=== PATIENT | female | born 1955 | race Caucasian/White ===

== ENCOUNTER → 2018-11-27 15:36 | Outpatient (CLI) | payer MEDICARE, SELFPAY | PROVIDERS: Family Provider Family Medicine; PCP Family Medicine; Referring Provider Internal Medicine Pulmonary Disease; Visit Provider Internal Medicine Pulmonary Disease | DX: J44.9 Chronic obstructive pulmonary disease, unspecified (principal); J40 Bronchitis, not specified as acute or chronic | CPT/HCPCS: 87070; 87077; 87101; 87205 ==

== ENCOUNTER → 2018-11-30 13:54 | Outpatient (CLI) | payer MEDICARE, SELFPAY | PROVIDERS: Family Provider Family Medicine; PCP Family Medicine; Referring Provider Internal Medicine Pulmonary Disease; Visit Provider Internal Medicine Pulmonary Disease | DX: J44.9 Chronic obstructive pulmonary disease, unspecified (principal); J40 Bronchitis, not specified as acute or chronic | CPT/HCPCS: 87015; 87116; 87206 ==

== ENCOUNTER → 2019-03-10 13:26 | Outpatient (CLI) | payer MEDICARE, SELFPAY ==
[2019-03-10 14:36] LABS: Erythrocyte Sedimentation Rate 15 mm/hr (0-30)
== END ==
PROVIDERS: Family Provider Family Medicine; PCP Family Medicine; Referring Provider Internal Medicine Pulmonary Disease; Visit Provider Internal Medicine Pulmonary Disease
DX: J44.9 Chronic obstructive pulmonary disease, unspecified (principal); R05 Cough; R91.1 Solitary pulmonary nodule
CPT/HCPCS: 36415; 82164; 85652; 87385

== ENCOUNTER → 2022-11-19 | Outpatient (CLI) | payer MEDICARE, SELFPAY ==
[2022-11-19 11:04] LABS: Cholesterol 203 mg/dL (200); High Density Lipoprotein 81 mg/dL; Triglycerides 71 mg/dL; Very Low Density Lipoprotein 14 mg/dL (5-40)
== END | disposition home or self-care (01) ==
LOC: PAVLAB 10:07
PROVIDERS: PCP Internal Medicine; Referring Provider Internal Medicine; Visit Provider Internal Medicine
DX: E78.00 Pure hypercholesterolemia, unspecified (principal)
CPT/HCPCS: 36415; 80061

== ENCOUNTER → 2023-04-07 | Outpatient (CLI) | payer MEDICARE, MEDICAID, SELFPAY ==
[2023-04-07 16:32] LABS: Amphetamine Urine VISTA NEGATIVE (<1000 ng/mL); Barbiturate Urine VISTA NEGATIVE (< 200 ng/mL); Benzodiazepine Urine VISTA NEGATIVE (< 200 ng/mL); Cocaine Urine VISTA NEGATIVE (< 300 ng/mL); Ecstacy Urine VISTA NEGATIVE (< 500 ng/mL); Methadone Urine VISTA NEGATIVE (< 300 ng/mL); PCP Urine VISTA NEGATIVE (< 25 ng/mL); THC Urine VISTA NEGATIVE (< 50 ng/mL); Vista UDS pH Range 6
== END | disposition home or self-care (01) ==
PROVIDERS: PCP Internal Medicine; Referring Provider Anesthesiology Pain Medicine; Visit Provider Anesthesiology Pain Medicine
DX: F11.20 Opioid dependence, uncomplicated (principal)
CPT/HCPCS: 80307

== ENCOUNTER 2023-07-14 14:34 | Outpatient (RCR) | payer MEDICARE, MEDICAID, SELFPAY ==
--- NOTE | 2023-07-14 15:58 | HP.PTEVAL ---
Patient's Visit Information Visit Information Visit Information: NADIA DOTY is a 68 year old F referred to Physical Therapy by Dr. Giorgi Frias MD with a diagnosis of HEART FAILURE WITH EJECTION FRACTURE,COPD. Date of Evaluation: 07/14/23 Physical Therapist: Derrell Villatoro PT, Cert MDT, OCS Visit Plan Frequency: 1 visit Plan: This patient will benefit from lift chair due to weakness in legs especially hips along with comorbities influence condition ,thus lift chair will ensure maximal level of function Subjective Subjective: This 68 y/o female presents to physical therapy for evaluation for lift chair. Patient seen DR and recommended lift chair due to difficulty getting up from chair especially the couch. Patient has multiple comorbities to include heart failure ,COPD,DM-2 ,Covid ,weakness ,lower extremity chronic edema , PUNEET ,TKR ,obesity . Patient has extended walking and standing caused LPB. Patient has difficulty ADL'S able to dress self ,bath . Patient has MAXILLOFACIAL PATHOLOGY assist with cleaning and patient does light cleaning. Patient has difficulty with stairs one step at time with rail. Lives in 1 bedroom apartment no steps. Patient has tub/shower stet up with grab bars. Patient denies paresthesia/tingling. Patient sleeping okay. Patient condition affects function. Patient goals to get lift chair. SOCIAL: Pain Back: Pain Intensity (Out of 10): 2 Pain Intensity Range: 10 Objective Objective: POSTURE: mild forward posture ,genu recurvatum ,knee valgus NEURO: denies paresthesia/tingling ,reflexes L3-4,L4-5,L5-S1 1/3 GAIT: ambulates with reciprocal pattern lateral sway of trunk SYMMTRIES: align AROM: supine knee flexion 0-120 degrees MMT: quads/hamstrings 4-/5 ,hip flexion /abduction 3/5 STAIRS: one steps at time with rail Balance/Special Test Scores Functional Gait Assessment Score: 11 % Disability: 63.3400 CATSIB Score (Max score 120 seconds): 60 Goals Goal 1:: Patient will benefit from lift chair to maximize function. Goal Time Frame: 1 visit Rehabilitation Potential Physical Therapy Diagnosis: This patient will benefit from lift chair due to weakness in legs especially hips along with comorbities influence condition ,thus lift chair will ensure maximal level of function Rehabilitation Potential: Fair Anticipated Interventions Patient/Client Instruction: Educate patient on: Condition For the Purpose of:: Other Other: lift chair Text: Thank you for the opportunity to evaluate your patient. For Medicare and Medicare HMO plans, please review the plan of care and approve it. It will need to be FAXED BACK to us at [phone] for Medicare purposes. For Medicare only, by signing this I certify the plan of care. Please let me know if there are questions or concerns regarding this plan of care. Physician Signature: Date:
== END 2023-07-14 19:00 | disposition home or self-care (01) ==
LOC: PT 14:34
PROVIDERS: PCP Internal Medicine; Visit Provider Internal Medicine
DX: I50.30 Unspecified diastolic (congestive) heart failure (principal); J44.9 Chronic obstructive pulmonary disease, unspecified; E11.65 Type 2 diabetes mellitus with hyperglycemia
CPT/HCPCS: 97162

== ENCOUNTER → 2023-09-02 | Outpatient (CLI) | payer MEDICARE, MEDICAID, SELFPAY ==
--- NOTE | 2023-09-02 14:12 | CT_ITS ---
STUDY: CT ABDOMEN AND PELVIS WITH CONTRAST REASON FOR EXAM: Female, 68 years old. Umbilical drainage. RADIATION DOSAGE (If Supplied By Facility): CTDIvol = ( 16.12 ) mGy, DLP = ( 863.38 ) mGycm TECHNIQUE: Transaxial images were obtained from the dome of the diaphragm to the symphysis pubis with oral contrast. Oral and amp; IV Readi-CAT and amp; 75mL Isovue-370 was administered. Sagittal and coronal images were reconstructed. Individualized dose optimization techniques were used for this CT. COMPARISON: None. FINDINGS: There is a 1.4 cm x 1.3 cm hypodense nodule in the posterior aspect of the right lower lobe. The visualized portions of the heart are within normal limits. Normal liver. The patient is status post cholecystectomy. Normal spleen. Normal pancreas. Normal bilateral adrenal glands. Normal right kidney. Normal left kidney. Normal visualized stomach. Normal small intestine. Moderate amount of fecal material is seen throughout the colon. The appendix is visualized and appears normal. There is scattered atherosclerotic calcification of the abdominal aorta, without a demonstrated aneurysm. Normal inferior vena cava. Normal retroperitoneum. Normal urinary bladder. There is absence of the uterus consistent with a prior hysterectomy. There is a small umbilical hernia containing fat. There are diffuse degenerative changes of the visualized lumbar spine. CT/Abdomen/Pelvis WITH Contrast IMPRESSION: Status post cholecystectomy and hysterectomy. Moderate amount of fecal material is seen in the colon. Small umbilical hernia. Electronically Signed: Omar Schwartz MD at 15:23 EST ,
[2023-09-02 14:53] LABS: CREATININE FINGERSTICK < 1.0 mg/dL (0.55-1.02); EGFR FINGERSTICK > 60.0000 mL/min (>60)
== END | disposition home or self-care (01) ==
LOC: CT 14:12
PROVIDERS: PCP Internal Medicine; Referring Provider Surgery; Visit Provider Surgery
DX: K42.9 Umbilical hernia without obstruction or gangrene (principal)
CPT/HCPCS: 74177; Q9967

== ENCOUNTER → 2023-12-08 | Outpatient (CLI) | payer MEDICARE, MEDICAID, SELFPAY ==
--- NOTE | 2023-12-08 08:07 | MRI_ITS ---
STUDY: MRI LUMBAR SPINE WITHOUT CONTRAST REASON FOR EXAM: Female, 68 years old. Pain and left radiculopathy. TECHNIQUE: Standardized fat and water weighted pulse sequences were obtained in the sagittal and axial planes. COMPARISON: CT abdomen and pelvis with contrast 09/02/2023. Lumbar spine radiographs 11/17/2023. FINDINGS: T10-T11: (Sagittal only). Normal endplates. Normal disc height, hydration and morphology. No ventral extradural defect. Normal central canal and bilateral intervertebral neural foramina. T11-T12: (Sagittal only). Prominent anterior marginal spurs. Normal endplates. Mild to moderate disc space height narrowing. Tiny ventral extra dural defect is posterior bulging annulus. Normal central canal and bilateral intervertebral neural foramina. T12-L1: (Sagittal only). Normal endplates. Normal disc height, hydration and morphology. No ventral extradural defect. Normal central canal and bilateral intervertebral neural foramina. Normal lumbar lordosis. There is no substantial scoliosis. Normal conus medullaris that terminates at the mid L1 vertebral body level. L1-2: Normal endplates. Normal disc height, hydration and morphology. Normal bilateral facet joints. Normal central canal and bilateral lateral recesses. Normal bilateral intervertebral neural foramina. L2-3: Normal endplates. Mild disc space height narrowing. Prominent broad ventral extradural defect due to posterior bulging annulus extending into the left L3 supra pedicular level foraminal zone. No significant facet arthropathy. Normal central canal and bilateral lateral recesses. Normal bilateral intervertebral neural foramina. L3-4: Modic type II degenerative vertebral marrow fat infiltration underneath the vertebral endplates. Pronounced disc space height narrowing. Prominent ventral extradural defect due to bone spur. Mild bilateral degenerative facet arthropathy. Mild central canal stenosis with an AP canal diameter of 9 mm. Normal bilateral lateral recesses. Mild stenosis of the right intervertebral neural foramen due to greater right-sided disc space height narrowing and right posterior marginal spur. Normal left intervertebral neural foramen. L4-5: Modic type II degenerative vertebral marrow fat infiltration underneath the vertebral endplates. Pronounced disc space height narrowing. Mild ventral epidural defect due to posterior marginal spurs mild degenerative retrolisthesis of L4 on L5. Mild to moderate left degenerative facet arthropathy. Mild right degenerative facet arthropathy. Moderately pronounced central canal stenosis with an AP canal diameter of 6.3 mm. Normal bilateral lateral recesses. Moderate stenosis of the left intervertebral neural foramen due to posterior marginal spur coming from L5. The bone spur is better seen on the CT abdomen. Mild to moderate stenosis of the right intervertebral neural foramen due to right-sided posterior marginal spurs and disc space height narrowing. L5-S1: Normal endplates. Normal disc height. Moderately pronounced left degenerative facet arthropathy. Mild right degenerative facet arthropathy. Normal central canal and bilateral lateral recesses. Moderately pronounced stenosis of the left intervertebral neural foramen due to osteophytes coming from the left facet joint. Mild stenosis of the right intervertebral neural foramen. Normal visualized sacral ala. Normal visualized paraspinous soft tissue structures. MRI/Spine Lumbar (Routine) IMPRESSION: 1. Moderately pronounced stenosis of the left L5-S1 intervertebral neural foramen due to osteophytes coming from moderately pronounced left degenerative facet arthropathy. Advise correlation for symptoms of left L5 nerve radiculopathy. 2. Moderately pronounced central canal stenosis at L4-L5 disc space level with an AP canal diameter 6.3 mm and moderate stenosis of the left L4-L5 intervertebral neural foramen due to osteophyte common from the L5 posterior bone spur. This bone spur is better seen on the comparison CT of the abdomen. Additionally, mild degenerative retrolisthesis of L4 on L5. 3. Mild central canal stenosis at L3-L4 disc space level with an AP canal diameter of 9 mm and mild stenosis of the right intervertebral neural foramen due to greater right-sided disc space height narrowing and right posterior marginal spur. 4. Prominent left-sided L2-L3 posterior bulging annulus extending into the left L3 supra pedicular level foraminal zone but no stenosis of the left intervertebral neural foramen. 5. No MRI evidence of lumbar extruded disc fragment. Electronically Signed: Mahamed Glaser MD at 10:01 EDT ,
== END | disposition home or self-care (01) ==
PROVIDERS: PCP Internal Medicine; Referring Provider Orthopaedic Surgery; Visit Provider Orthopaedic Surgery
DX: M48.061 Spinal stenosis, lumbar region without neurogenic claudication (principal)
CPT/HCPCS: 72148

== ENCOUNTER 2024-10-21 10:01 | Outpatient (RCR) | payer MEDICARE, MEDICAID, SELFPAY ==
[2024-10-21 10:40] VITALS: BP 142/64; PULSE 67; RESP 18; TEMP 36.2; BMI 35.9
--- NOTE | 2024-10-21 12:52 | HP.PCM_ITS ---
History of Present Illness Date of Service: 10/21/24 Chief Complaint: Drainage from umbilicus History of Wound: This Martin is a 69-year-old who was referred to the wound center by PCP due to chronic drainage from her umbilicus. She states that this has been ongoing for over 2 years. No pain. No recent abdominal surgery, history of cholecystectomy and hysterectomy years ago. Was seen by general surgery a few years ago however imaging did not show any significant concerns. She states that she has been packing the area daily. There has been no recent worsening, she was referred here due to ongoing drainage. She feels well otherwise. History of diabetes mellitus type 2 her last A1c was at 6.9. [facility] Medical History (Updated 10/21/24 @ 13:[address] Tiana Gonzales MD) Umbilical discharge Sleep apnea COPD (chronic obstructive pulmonary disease) GERD (gastroesophageal reflux disease) Hypertension Arthritis Diabetes Umbilical abnormality Home Medications ?Medication ?Instructions ?Recorded ?Last Taken ?Type calcium 600 mg (as carbonate)-vit 1 tab PO DAILY 08/22 Unknown History D3 1,000 unit-vitamin K2 90 mcg tab carvedilol 6.25 mg tablet 3.125 mg PO BID 08/22/23 Unk nown History cholecalciferol (vitamin D3) 125 125 mcg PO DAILY 10/14 Unknown History mcg (5,000 unit) capsule cyanocobalamin (vitamin B-12) 1,000 mcg PO DAILY 08/22 Unknown History 1,000 mcg capsule fluticasone 500 mcg-salmeterol 50 1 inh inhalation BID 08/22/23 Unknown History mcg/dose blistr powdr for inhalation (Wixela Inhub) furosemide 20 mg tablet 20 mg PO DAILY 08/22/23 Unkn own History glipizide 10 mg tablet 20 mg PO DAILY 08/22/23 Unkn own History ibandronate 150 mg tablet 150 mg PO QMONTH 08/22/23 Un known History ipratropium 0.5 mg-albuterol 3 mg 3 ml inhalation Q6H PRN sob 08/22/23 Unknown History (2.5 mg base)/3 mL nebulization soln losartan 50 mg tablet 50 mg PO DAILY 08/22/23 Unkn own History magnesium oxide 400 mg PO TID 08/22/23 Unkno wn History multivitamin (One Daily 1 tab PO DAILY 08/22/23 Unkn own History Multivitamin tablet) omeprazole 40 mg capsule,delayed 40 mg PO DAILY Unknown History release pioglitazone 15 mg tablet 15 mg PO DAILY 08/22/23 Unkn own History pramipexole 0.125 mg tablet 0.125 mg PO DAILY 08/22/23 Unknown History rosuvastatin 40 mg tablet 40 mg PO DAILY 08/22/23 Unkn own History Allergy/AdvReac Type Severity Reaction Status Date / Time No Known Allergies Allergy Verified 10/21/24 10:34 Family History Mother Colon cancer Hypertension Father Hypertension Surgical History History of total left knee replacement History of laparoscopic cholecystectomy History of hysterectomy Social History Smoking Status: Never smoker alcohol intake: current alcohol intake frequency: a few times a month substance use type: does not use ROS Constitutional Constitutional: Denies anorexia, body ache(s), change in weight, chills, daytime sleepiness, fatigue, frequent falls, headache(s), poor appetite or snoring Eyes Eyes: Denies blind spots, bloody eye, change in vision, discharge from eye(s), discongugate gaze, double vision, erythema or itchy eyes ENT HEENT: Denies ear pain, epistaxis, facial pain, foreign body in nose, halitosis, headache(s), hearing loss or mouth pain Cardiovascular Cardiovascular: Denies abdominal pain, bluish discoloration of hand/feet, chest pain, chest pain at rest, claudication, cold extremities, cyanosis or erythema on extremities Respiratory/Chest Respiratory/Chest: Denies chest congestion, difficulty clearing secretions, dusky skin, dyspnea, excessive phlegm production or hemoptysis Gastrointestinal Gastrointestinal: Denies abdominal pain, change in bowel habits, chewing difficulty, coffee ground emesis, constipation or fecal incontinence Genitourinary Genitourinary: Denies abdominal discomfort, anuria or flank pain Musculoskeletal Musculoskeletal: Reports joint stiffness; Denies atrophy, difficulty walking, muscle weakness, tingling or tremors Integumentary Integumentary: Denies bleeding lesions, changing lesions, erythema, hirsutism, jaundice or skin swelling Neurologic Neurologic: Denies abnormal movements, behavior changes, burning sensations, confusion, disequilibrium, focal weakness, frequent falls or memory loss Psychiatric Psychiatric: Denies auditory hallucinations, behavioral changes, confusion, difficulty concentrating, hallucinations, homicidal ideation or memory loss Endocrine Endocrinology: Denies change in body appearance, cold intolerance, deepening of the voice, excessive sweating or increase in ring/shoe/hat size Hematologic/Lymphatic Hematologic/Lymphatic: Denies easy bleeding or easy bruising Allergic/Immunologic Allergic/Immunologic: Denies itchy eyes, lip swelling, rhinitis, throat swelling, tongue swelling, eczemia or wheezing Vital Signs Vital Signs Vital Signs: 10/21/24 10:40 Temperature 97.2 F L Temperature Source Temporal Pulse Rate 67 Respiratory Rate 18 Blood Pressure 142/64 H Blood Pressure Mean 90 Blood Pressure Source Monitor Blood Pressure Position Sitting Blood Pressure Location Right Arm Oxygen Delivery Method Room Air Weight Weight: 160 lb Body Mass Index (BMI) 35.9 Physical Exam Const alert, oriented x3 and no apparent distress General Appearance: cooperative and well kempt HEENT normocephalic, head/scalp atraumatic and hearing grossly normal bilaterally Eyes EOMs intact bilaterally General Eye: normal appearance of both eyes Neck full ROM and supple General: normal visual inspection Resp normal respiratory effort and normal air movement Effort and Inspection: able to speak in complete sentences Cardio regular rate, regular rhythm, S1 normal heart sound and S2 normal heart sound GI soft to palpation and non-tender GI Narrative: Umbilicus defect visibly notable however, probes to about 3 cm Extremity no clubbing, cyanosis or edema Neuro oriented x3, CN's II-XII intact bilaterally and moves all extremities Psych mental status grossly normal, thought process normal, cooperative and affect normal Charges/Coding Visit Charges Office Visits / Consults: [id number] OV L3 New 30min Assessment/Plan Assessment/Plan (1) Umbilical abnormality: CODE(S): Q89.9 - Congenital malformation, unspecified (2) Umbilical discharge: CODE(S): R19.8 - Other specified symptoms and signs involving the digestive system and abdomen PLAN: Plan Chronic intermittent drainage from her umbilicus which has been present for 2 years. Was seen by general surgery in August 2023, had an abdominal pelvic CT which did not reveal any acute/significant concerns. At her follow-up visit, she had stated that discharge/drainage had resolved and so no further follow-up was recommended. She states that it has continued intermittently with similar type of drainage since then. Not worse but due to persistence, PCP recommended wound care. As above, there is no clear/open wound but on probing, probes to about 3 cm into the abdominal cavity. I believe would benefit from a new general surgery evaluation, referral placed. In the meantime Aquacel extra and gauze to help with drainage. Keep area clean. Recommend continued follow-up with PCP until evaluation by general surgery. This note was generated with [employer] dictation software. It may contain incorrect words, spelling, and punctuation that were not noted in checking the note before signing.
--- NOTE | 2024-10-25 11:26 | WC ---
PHOTO 10/21/24 UMBILICAL
== END 2024-10-21 11:58 | disposition home or self-care (01) ==
LOC: WC 10:01
PROVIDERS: PCP Internal Medicine; Referring Provider Internal Medicine; Visit Provider Internal Medicine
DX: Q89.9 Congenital malformation, unspecified (principal); J44.9 Chronic obstructive pulmonary disease, unspecified; E11.9 Type 2 diabetes mellitus without complications; R19.8 Other specified symptoms and signs involving the digestive system and abdomen; I10 Essential (primary) hypertension; K21.9 Gastro-esophageal reflux disease without esophagitis; Z79.84 Long term (current) use of oral hypoglycemic drugs; Z79.899 Other long term (current) drug therapy
CPT/HCPCS: 99213; G0463

== ENCOUNTER → 2025-05-12 | Outpatient (CLI) | payer MEDICARE, MEDICAID, SELFPAY ==
[2025-05-12 17:00] LABS: Hematocrit 42.6 % (37-47); Hemoglobin 13.5 g/dL (12.0-15.0); Immature Granulocytes Count 0.010 X10^3/uL (0.0-0.0); Mean Corp Hgb Conc 31.7 g/dL (32-36); Mean Corpuscular Volume 89.3 fL (81-99); Mean Platelet Vol. 9.0 fl (6.2-12.0); NRBC Flagged by Analyzer 0 % (0-5); Platelet Count 208 K/mm3 (150-450); RBC Distribution Width CV 13.3 % (11.6-14.6); RBC Distribution Width SD 43.7 fl (35.1-43.9); Red Blood Count 4.77 M/mm3 (4.2-5.4); White Blood Count 7.3 K/mm3 (4.4-11.0)
[2025-05-12 17:07] LABS: Creatinine, Urine (random) 36.70 mg/dL (28.00-217.00); Microalbumin,Random Urine < 12.0 mg/L (<20 mg/L)
[2025-05-12 17:30] LABS: Cholesterol 194 mg/dL (<=200); Hepatitis C Antibody Nonreactive (Nonreactive); Low Density Lipoprotein Calc. 83 mg/dL; Triglycerides 203 mg/dL; Very Low Density Lipoprotein 41 mg/dL (5-40); Vitamin D,25 Hydroxy 44.2 ng/mL (30-100); cholesterol:hdl ratio screen 2.77
[2025-05-12 17:37] LABS: AST(SGOT) 25 U/L (<=31); Alanine Aminotransfer ALT/SGPT 31 U/L (<=34); Albumin, Serum 4.4 g/dL (3.4-4.8); Alkaline Phosphatase 104 U/L (35-104); Anion Gap 13 (5-15); BUN 21 mg/dL (4-19); BUN/Creat Ratio 29.7 RATIO (10-20); Calcium,Total 9.9 mg/dL (7.6-11.0); Carbon Dioxide 23.9 mmol/L (21.0-32.0); Chloride 102 mmol/L (98-108); Globulin 3.3 g/dL (2.2-4.2); Glucose 165 mg/dL (70-99); Potassium 3.7 mmol/L (3.3-5.1)
== END | disposition home or self-care (01) ==
PROVIDERS: PCP Family Medicine Geriatric Medicine; Visit Provider Family Medicine Geriatric Medicine
DX: I10 Essential (primary) hypertension (principal); E11.65 Type 2 diabetes mellitus with hyperglycemia; E55.9 Vitamin D deficiency, unspecified; E78.5 Hyperlipidemia, unspecified
CPT/HCPCS: 36415; 80053; 80061; 82043; 82306; 82570; 83036; 84443; 85025; 86803

== ENCOUNTER → 2025-05-18 | Outpatient (CLI) | payer MEDICARE, MEDICAID, SELFPAY ==
--- NOTE | 2025-05-18 07:57 | MRI_ITS ---
PROCEDURE: SPINE LUMBAR (ROUTINE) 05/18/2025 REASON FOR EXAM: PAIN TECHNIQUE: Procedure Code: MRISPL Modality: MR Procedure: SPINE LUMBAR (ROUTINE) COMPARISON: 12/08/2023 FINDINGS: Normal lumbar alignment without compression deformity. No retroperitoneal abnormality. L1-2 is unremarkable. At L2-3 there is mild canal narrowing from concentric annular bulging and facet arthrosis. Similar to prior. At L3-4 [id number] canal narrowing from hypertrophic facet arthrosis and dorsal osteophytic spurring. Similar findings previously. Similar far right disc bulge at L3-4 may impinge the right far lateral L3 nerve. At L4-5 [id number] circumferential spinal stenosis from facet arthrosis, disc space narrowing, disc bulging and ligamentum flavum hypertrophy. Moderate inferior foraminal narrowing bilaterally was also present previously At L5-S1, mild central canal narrowing from central shallow protrusion. Moderate to severe left L5 foraminal narrowing was also present previously. Correlate for left L5 radiculopathy. MRI/Spine Lumbar (Routine) IMPRESSION: Similar findings to the prior study Reading [facility]
== END | disposition home or self-care (01) ==
LOC: OPMRI 07:56
PROVIDERS: PCP Family Medicine Geriatric Medicine; Referring Provider Student in an Organized Health Care Education/Training Program; Visit Provider Student in an Organized Health Care Education/Training Program
DX: M51.369 Other intervertebral disc degeneration, lumbar region without mention of lumbar back pain or lower extremity pain (principal); M48.061 Spinal stenosis, lumbar region without neurogenic claudication
CPT/HCPCS: 72148

== ENCOUNTER → 2025-06-03 | Outpatient (CLI) | payer MEDICARE, MEDICAID, SELFPAY ==
--- NOTE | 2025-06-03 08:17 | BI_ITS ---
EXAM: SCRN MAMM (CAD)W/LINETTE BILAT DATE: 06/03/2025 CLINICAL HISTORY: F, Age 70 y/o , SCREEN TECHNIQUE: Procedure Code: [id number] Modality: MG Procedure: SCRN MAMM (CAD)W/LINETTE BILAT COMPARISON: Prior exam(s) dated 08/16/2024, 06/05/2023, 02/19/2022. FINDINGS: TISSUE DENSITY: The breasts are heterogeneously dense, which may obscure small masses. The mammogram demonstrates that the patient has dense breasts. Supplemental screening with whole breast ultrasound or MRI may be considered for further evaluation. Bilateral Breast Mammographic Findings: No significant masses, calcifications or other abnormalities are identified. BI/SCRN MAMM (CAD)W/LINETTE BILAT IMPRESSION: There is no mammographic evidence of malignancy. OVERALL FINAL ASSESSMENT BI-RADS 1: NEGATIVE. RECOMMENDATION: Routine annual follow-up in 1 Year A letter with findings and recommendations will be mailed to the patient. Reading Location: [id number]
--- OUTSIDE RECORDS SUMMARY | 2025-06-03 08:38 | XMS RPT_ITS | CCD ---
Author Organization [facility] Care Team Providers [facility] [employer] Professor Name Role Phone ALTAGRACIA SCHAEFFER, DR GARY Primary Care Physician [phone] Altagracia, Dr. Gary Primary Care Provider Altagracia, Dr. Gary Referring Provider Cebul, Dr. Rodrigo Smith Attending Provider Cebul, Dr. Rodrigo Smith Referring Provider Altagracia, Dr. Gary Primary Care Provider Altagracia, Dr. Gary Referring Provider Cebul, Dr. Rodrigo Smith Attending Provider [phone] Cebul, Dr. Rodrigo Smith Referring Provider Dr. Wiley Kohli Attending Provider Bassem, Dr. Manzo Attending Provider ALTAGRACIA SCHAEFFER, DR GARY Primary Care Unavailable PROSPER BRIGHT, LETY Thomas Attending Carl FRIAS MD, DR GARY Primary Care Unavailable PROSPER BRIGHT, LETY Thomas Attending Carl BRIGHT, LETY Thomas Attending Carl FRIAS MD, DR GARY Primary Care Unavailable ORLY SCHAEFFER, DR PHIPPS Attending Unavailable YOLANDA SCHAEFFER, EDGAR Glass Consulting Joshua FRIAS MD, DR GARY Primary Care Unavailable PROSPER BRIGHT, LETY Thomas Attending Carl FRIAS MD, DR GARY Primary Care Unavailable KAMARI DIAZ MD Attending Joshua FRIAS MD, DR GARY Primary Care Unavailable Boris Jose Unavailable Atterholt OD, Christiano L Unavailable PROSPER BRIGHT, LETY Thomas Attending Carl FRIAS MD, DR GARY Primary Care Unavailable LATOUF, ABDIRAHMAN SCHAEFFER Consulting Unavailable LATOUF, ABDIRAHMAN SCHAEFFER Attending Unavailable LATOUF, ABDIRAHMAN SCHAEFFER Primary Care Unavailable LATOUF, ABDIRAHMAN SCHAEFFER Admitting Unavailable PROVIDER, UNKNOWN Consulting Unavailable PROVIDER, UNKNOWN Consulting Unavailable PROVIDER, UNKNOWN Consulting Unavailable COOK, ALMA T Primary Care Unavailable COOK, ALMA T Attending Unavailable COOK, ALMA T Admitting Unavailable VACCARIELLO, CLAYTON Consulting Unavailable PROVIDER, UNKNOWN Consulting Unavailable PROVIDER, UNKNOWN Consulting Unavailable PROVIDER, UNKNOWN Consulting Unavailable EMERSON CASTRO Primary Care Unavailable EMERSON CASTRO Attending Unavailable EMERSON CASTRO Admitting Unavailable LATOUF, ABDIRAHMAN SCHAEFFER Consulting Unavailable PROVIDER, UNKNOWN Consulting Unavailable PROVIDER, UNKNOWN Consulting Unavailable PROVIDER, UNKNOWN Consulting Unavailable LATOUF, ABDIRAHMAN SCHAEFFER Primary Care Unavailable LATOUF, ABDIRAHMAN SCHAEFFER Consulting Unavailable LATOUF, ABDIRAHMAN SCHAFEFER Attending Unavailable LATOUF, ABDIRAHMAN SCHAEFFER Admitting Unavailable PROVIDER, UNKNOWN Consulting Unavailable PROVIDER, UNKNOWN Consulting Unavailable PROVIDER, UNKNOWN Consulting Unavailable LATOUF, ABDIRAHMAN SCHAEFFER Primary Care Unavailable LATOUF, ABDIRAHMAN SCHAEFFER Consulting Unavailable LATOUF, ABDIRAHMAN SCHAEFFER Attending Unavailable LATOUF, ABDIRAHMAN SCHAEFFER Admitting Unavailable PROVIDER, UNKNOWN Consulting Unavailable PROVIDER, UNKNOWN Consulting Unavailable PROVIDER, UNKNOWN Consulting Unavailable LATOUF, ABDIRAHMAN SCHAEFFER Primary Care Unavailable LATOUF, ABDIRAHMAN SCHAEFFER Consulting Unavailable LATOUF, ABDIRAHMAN SCHAEFFER Attending Unavailable LATOUF, ABDIRAHMAN SCHAEFFER Admitting Unavailable PROVIDER, UNKNOWN Consulting Unavailable PROVIDER, UNKNOWN Consulting Unavailable PROVIDER, UNKNOWN Consulting Unavailable LUC BELL Admitting Unavailable LUC BELL Attending Unavailable Dr. Ghassan Hartley MD, Chi Primary Care Provider Dr. Ghassan Hartley MD, Chi Attending Provider Emerson Cowan Attending Provider [phone] Emerson Cowan Referring Provider Dr. Ghassan Hartley MD, Chi Referring Provider LUC BELL Referring Unavailable FOZIA CASTILLO Attending Unavailable LUC BELL Referring Unavailable FOZIA CASTILLO Attending Unavailable LUC BELL Referring Unavailable FOZIA CASTILLO Attending Unavailable LUC BELL Attending Unavailable Naeem, Ghassan Chi Primary Care Unavailable Naeem, Ghassan Chi Attending Unavailable Naeem, Ghassan Chi Referring Unavailable Jovany Luevano Attending Unavailable Latouf, Butros Primary Care Unavailable Latouf, Butros Referring Unavailable Oleghe, Efewongbe Consulting Unavailable Oleghe, Efewongbe Attending Unavailable Latouf, Butros Primary Care Unavailable Latouf, Butros Referring Unavailable Latouf, Butros Primary Care Unavailable Gloria, Emerson Attending Unavailable Latouf, Butros Referring Unavailable Diego Chase Attending Unavailable Latouf, Butros Primary Care Unavailable Gloria, Emerson Attending Unavailable Naeem, Ghassan Chi Primary Care Unavailable Naeem, Ghassan Chi Referring Unavailable Oleghe, Efewongbe Attending Unavailable Latouf, Butros Referring Unavailable Latouf, Butros Primary Care Unavailable Naeem, Ghassan Chi Primary Care Unavailable Naeem, Ghassan Chi Attending Unavailable Gloria Emerson Attending Unavailable Gloria, Emerson Referring Unavailable Naeem, Ghassan Chi Primary Care Unavailable Medications Current Medications Medication Drug Class(es) Dates Sig (Normalized) Sig (Original) albuterol 0.833 mg/ml / ipratropium bromide 0.167 mg/ml inhalation solution (17 sources) Anticholinergic, beta2-Adrenergic Agonist Start: 08-22-2023 take 1 mL by inhalation every six hours as needed Ipratropium-Albuter ol 0.5 mg-3 mg(2.5 mg base)/3 mL solution for nebulization Active 3 mL INHALATION EVERY 6 HOURS as needed for sob August 22, 2023 1:00am Start: 08-22-2023 take 1 mL by inhalat ion every six hours Ipratropium-Albuterol Active 3 ML INHALATION EVERY 6 HOURS August 22, 2023 1:00am Start: 03-28-2022 ipratropium-al buterol (DUONEB) 0.5 mg-3 mg(2.5 mg base)/3 mL nebu 3 mL. 03/28/2022 Active Start: 03-28-2022 take 1 dose by inhal ation four times daily albuterol-ipratropium 2.5 mg-0.5 mg/3 mL inhalation solution Dose = 3 mL, Inhalation, QID, 0 Refill(s) Start Date: 03/28/22 Status: Ordered aspirin 81 mg delayed release oral tablet (8 sources) Platelet Aggregation Inhibitor, Nonsteroidal Anti-inflammatory Drug Start: 03-12-2024 aspirin, enteric coated (ASPIRIN, ENTERIC COATED) 81 mg EC tablet 81 mg. 03/12/2024 Active Calcium Carb-Vitamin D3-Vit K2 (3 sources) Start: 08-22-2023 take 1 tablet by mouth once daily Calcium Carb-Vitamin D3-Vit K2 Active TABLET PO DAILY August 22, 2023 1:00am Start: 08-22-2023 take 1 tablet by angelita th once daily Calcium Carb-Vitamin D3-Vit K2 Active TABLET PO DAILY August 22, 2023 12:00am Calcium Carb-Vitamin D3-Vit K2 600 mg-1,000 unit-90 mcg tablet (3 sources) Start: 08-22-2023 Calcium Carb-Vitamin D3-Vit K2 600 mg-1,000 unit-90 mcg tablet Active 1 {tbl} PO DAILY August 22, 2023 1:00am calcium carbonate 600 MG / ergocalciferol 200 UNT Oral Capsule (5 sources) Provitamin D2 Compound Start: 03-28-2022 take 2 capsules by mouth twice daily calcium-vitamin D 600 mg-5 mcg (200 intl units) oral capsule 2 bcap(s), Oral, BID, 0 Refill(s) Start Date: 03/28/22 Status: Ordered Start: 03-28-2022 take 1 capsule by mo [facility] twice daily calcium-vitamin D 600 mg-5 mcg (200 intl units) oral capsule Dose = 1 cap(s), Oral, BID, 0 Refill(s) Start Date: 03/28/22 Status: Ordered carvedilol 3.125 mg oral tablet (17 sources) alpha-Adrenergic Sergo, beta-Adrenergic Sergo Start: 03-03-2025 take 1 tablet by mouth every twelve hours carvedilol (COREG) 3.125 mg tablet Take 1 tablet by mouth every 12 hours. 03/03/2025 Active Start: 08-22-2023 take 3.125 mg by angelita th twice daily at mealtime Carvedilol 6.25 mg tablet Active 3.125 mg PO TWICE A DAY August 22, 2023 1:00am must administer with a meal/food Start: 03-28-2022 take 6.25 mg by mout h twice daily at mealtime Carvedilol Active 6.25 MG PO TWICE A DAY August 22, 2023 12:00am must administer with a meal/food empagliflozin 10 mg oral tablet (11 sources) Sodium-Glucose Cotransporter 2 Inhibitor Start: 12-27-2022 Jardiance 10 mg oral tablet Dose : 10 mg = 1 tab(s), Oral, qAM, # 30 tab(s), 2 Refill(s), Pharmacy: [id number], 140.9, cm, 04/26/24 15:13:00 EDT, Height, kg, 04/26/24 15:13:00 EDT, Dosing Weight Start Date: 04/26/24 Status: Ordered 60 actuat fluticasone propionate 0.5 mg/actuat / salmeterol 0.05 mg/actuat dry powder inhaler (14 sources) Corticosteroid, beta2-Adrenergic Agonist Start: 04-04-2025 WIXELA INHUB 500-50 mcg/dose dsdv 04/04/2025 Active Start: 08-22-2023 Fluticasone Pr opion-Salmeterol (Wixela Inhub) 500-50 mcg/dose blister with device Active 1 NMA INHALATION TWICE A DAY August 22, 2023 1:00am Start: 08-22-2023 Fluticasone Pr opion-Salmeterol (Wixela Inhub) 500-50 mcg/dose blister with device Active 1 INH INHALATION TWICE A DAY August 22, 2023 1:00am Start: 08-22-2023 Fluticasone Pr opion-Salmeterol (Wixela Inhub) 500-50 mcg/dose blister with device Active 1 INH INHALATION TWICE A DAY August 22, 2023 12:00am Start: 03-28-2022 take 1 dose by inhal ation twice daily Advair Diskus 500 mcg-50 mcg inhalation powder Dose = 1 puff(s), Inhalation, BID, 0 Refill(s) Start Date: 03/28/22 Status: Ordered FREESTYLE DORI 2 SENSOR KIT (3 sources) Start: 01-21-2024 FREESTYLE LIBR E 2 SENSOR KIT FREESTYLE DORI 2 SENSOR KIT, CHANGE SENSOR EVERY 14 DAYS Start Date: 01/21/24 Status: Ordered FREESTYLE DORI 2 SENSOR kit (6 sources) Start: 01-19-2025 FREESTYLE LIBR E 2 SENSOR kit 01/19/2025 Active glipiZIDE er 10 mg 24 hr extended release oral tablet (16 sources) Sulfonylurea Start: 03-29-2025 glipiZIDE (GLU COTROL XL) 10mg 24 hr tablet 03/29/2025 Active Start: 08-22-2023 take 2 tablets by mo [facility] once daily Glipizide 10 mg tablet Active 20 mg PO DAILY August 22, 2023 1:00am Start: 08-22-2023 take 20 mg by mouth once daily Glipizide Active 20 MG PO DAILY August 22, 2023 1:00am Start: 08-18-2023 glipiZIDE 5 mg oral tablet, extended release Dose : 5 mg = 1 tab(s), TAKE 1 TABLET BY MOUTH ONCE DAILY Start Date: 08/18/23 Status: Ordered ibandronic acid 150 mg oral tablet (17 sources) Bisphosphonate Start: 03-28-2022 take 1 tablet by mouth every month Ibandronate 150 mg tablet Active 150 mg PO EVERY MONTH August 22, 2023 1:00am losartan potassium 50 mg oral tablet (17 sources) Angiotensin 2 Receptor Sergo Start: 03-28-2022 take 1 tablet by mouth once daily Losartan 50 mg tablet Active 50 mg PO DAILY August 22, 2023 1:00am lovastatin 20 mg oral tablet (4 sources) HMG-CoA Reductase Inhibitor Start: 03-28-2022 lovastatin 20 mg oral tablet Dose : 20 mg = 1 tab(s), Oral, qDay, # 30 tab(s), 0 Refill(s) Start Date: 03/28/22 Status: Ordered Multivitamin preparation (5 sources) Start: 03-28-2022 take 1 tablet by mouth once daily Multivitamin Dose = 1 tab(s), Oral, Daily, 0 Refill(s) Start Date: 03/28/22 Status: Ordered ofloxacin 3 mg/ml ophthalmic solution (2 sources) Quinolone Antimicrobial Start: 05-09-2025 End: 05-23-2025 take 1 drop(s) into the eye(s) four times daily, then take 1 drop(s) into the eye(s) three times daily ofloxacin (OCUFLOX) 0.3 % ophthalmic solution Use 1 drop in the right eye four times daily for 7 days, THEN 1 drop three times a day for 7 days. 5 mL 05/09/2025 05/23/2025 Active pantoprazole 40 mg delayed release oral tablet (4 sources) Proton Pump Inhibitor Start: 04-14-2025 take 1 tablet by mouth once daily Pantoprazole 40 mg tablet,delayed release (DR/EC) Active 40 mg PO daily May 27, 2025 12:00am potassium chloride 20 meq oral tablet (5 sources) Start: 03-29-2022 Potassium Chloride (Eqv-K-Tab) 20 mEq oral tablet, extended release Dose : 20 mEq = 1 tab(s), Oral, Every other day, Take with food, # 90 tab(s), 0 Refill(s), Pharmacy: Replaced By [facility] [id number], 140.9, cm, 03/29/22 13:26:00 EDT, Height Start Date: 03/29/22 Status: Ordered prednisoLONE acetate 10 mg/ml ophthalmic suspension (3 sources) Corticosteroid Start: 05-09-2025 End: 06-06-2025 take 1 drop(s) into the eye(s) four times daily, then take 1 drop(s) into the eye(s) three times daily, then take 1 drop(s) into the eye(s) twice daily, then take 1 drop(s) into the eye(s) once daily prednisoLONE acetate (PRED FORTE) 1 % ophthalmic suspension Use 1 drop in the right eye four times daily for 7 days, THEN 1 drop three times a day for 7 days, THEN 1 drop two times a day for 7 days, THEN 1 drop once daily for 7 days. 5 mL 1 05/09/2025 06/06/2025 Active rosuvastatin 40 mg oral capsule (14 sources) HMG-CoA Reductase Inhibitor Start: 03-18-2024 rosuvastatin calcium (ROSUVASTATIN PO) 40 mg. 03/18/2024 Active Start: 08-22-2023 take 1 tablet by angelita th once daily Rosuvastatin 40 mg tablet Active 40 mg PO DAILY August 22, 2023 1:00am sucralfate 100 mg/ml oral suspension (6 sources) Aluminum Complex Start: 01-21-2025 take 10 mL by mouth at bedtime sucralfate (CARAFATE) 100 mg/mL suspension TAKE 10 ML BY MOUTH BEFORE MEAL(S) AND AT BEDTIME 01/21/2025 Active traMADol hydrochloride 50 mg oral tablet (4 sources) Opioid Agonist Start: 03-28-2022 traMADol 50 mg oral tablet Dose : 50 mg = 1 tab(s), Oral, q12h, PRN for pain, # 12 tab(s), 0 Refill(s) Start Date: 03/28/22 Status: Ordered vitamin b12 1 mg oral tablet (17 sources) Vitamin B12 Start: 02-25-2025 take 1 tablet by mouth once daily cyanocobalamin (VITAMIN B-12) 1,000 mcg tab Take 1 tablet by mouth once daily. 02/25/2025 Active Start: 08-22-2023 End: 05-27-2025 take 1 capsule by mouth once daily Cyanocobalamin (Vitamin B-12) 1,000 mcg capsule Discontinued 1000 ug PO DAILY August 22, 2023 1:00am May 27, 2025 8:33am Start: 03-28-2022 Vitamin B12 0 Refill(s) Start Date: 03/28/22 Status: Ordered Vitamin D3 (5 sources) Start: 03-28-2022 Vitamin D3 qDa y, 0 Refill(s) Start Date: 03/28/22 Status: Ordered Completed/Discontinued Medications Medication Drug Class(es) Dates Sig (Normalized) Sig (Original) benoxinate hydrochloride 4 mg/ml / fluorescein sodium 3 mg/ml ophthalmic solution (2 sources) Diagnostic Dye Start: 03-30-2025 End: 03-30-2025 fluorescein-benoxi lev 0.3-0.4 % 1 drop (FLURESS) Start: 03-30-2025 End: 03-30-2025 1 drop, BOTH EYES, DIRECT ED, Starting on Fri03/30/25 at 1100, Until Fri03/30/25 at 2259, Administer for applanation tonometry. In the event of a Fluress shortage, administer [place]-Fluor 1 drop into both eyes as directed for applanation tonometry cholecalciferol 0.125 mg oral capsule (6 sources) Vitamin D Start: 08-22-2023 End: 05-27-2025 take 1 capsule by mouth once daily Cholecalciferol (Vitamin D3) 125 mcg (5,000 unit) capsule Discontinued 125 ug PO DAILY August 22, 2023 1:00am May 27, 2025 8:33am furosemide 20 mg oral tablet (17 sources) Loop Diuretic Start: 08-22-2023 End: 05-27-2025 take 1 tablet by mouth once daily Furosemide 20 mg tablet Discontinued 20 mg PO DAILY August 22, 2023 1:00am May 27, 2025 8:33am Start: 05-02-2022 Lasix 40 mg or al tablet See Instructions, Take 40 mg in the am Take 20 mg in the pm Take 40 mg in the pm for the next 3 days, 0 Refill(s) Start Date: 05/02/22 Status: Ordered magnesium oxide 400 mg oral tablet (11 sources) Start: 03-28-2022 End: 05-27-2025 take 1 tablet by mouth three times daily Magnesium Oxide 400 mg magnesium tablet Discontinued 400 mg PO THREE TIMES A DAY August 22, 2023 1:00am May 27, 2025 8:34am Multivitamin (One Daily Multivitamin) tablet (6 sources) Start: 08-22-2023 End: 05-27-2025 take 1 tablet by mouth once daily Multivitamin (One Daily Multivitamin) tablet Discontinued 1 {tbl} PO DAILY August 22, 2023 1:00am May 27, 2025 8:34am Start: 08-22-2023 take 1 tablet by angelita th once daily Multivitamin (One Daily Multivitamin) tablet Active 1 {tbl} PO DAILY August 22, 2023 1:00am Start: 08-22-2023 take 1 tablet by angelita th once daily Multivitamin (One Daily Multivitamin) tablet Active 1 TABLET PO DAILY August 22, 2023 1:00am Start: 08-22-2023 take 1 tablet by angelita th once daily Multivitamin (One Daily Multivitamin) tablet Active 1 TABLET PO DAILY August 22, 2023 12:00am omeprazole 40 mg delayed release oral capsule (11 sources) Proton Pump Inhibitor Start: 08-22-2023 End: 05-27-2025 take 1 capsule by mouth once daily Omeprazole 40 mg capsule,delayed release(DR/EC) Discontinued 40 mg PO DAILY August 22, 2023 1:00am May 27, 2025 8:34am Start: 03-28-2022 take 1 mg by mouth o nce daily as needed omeprazole 20 mg oral delayed release capsule mg = cap(s), Oral, qDay, PRN Dyspepsia, 0 Refill(s) Start Date: 03/28/22 Status: Ordered pioglitazone 15 mg oral tablet (17 sources) Peroxisome Proliferator Receptor alpha Agonist, Peroxisome Proliferator Receptor gamma Agonist, Thiazolidinedione Start: 08-22-2023 End: 05-27-2025 take 1 tablet by mouth once daily Pioglitazone 15 mg tablet Discontinued 15 mg PO DAILY August 22, 2023 1:00am May 27, 2025 8:34am Start: 03-28-2022 pioglitazone ( ACTOS) 45 mg tablet 45 mg. 03/28/2022 Active pramipexole dihydrochloride 0.125 mg oral tablet (17 sources) Nonergot Dopamine Agonist Start: 03-28-2022 End: 05-27-2025 take 1 tablet by mouth once daily Pramipexole 0.125 mg tablet Discontinued 0.125 mg PO DAILY August 22, 2023 1:00am May 27, 2025 8:35am proparacaine hydrochloride 5 mg/ml ophthalmic solution (2 sources) Local Anesthetic Start: 03-30-2025 End: 03-30-2025 proparacaine 0.5 % 1 drop (ALCAINE) Start: 03-30-2025 End: 03-30-2025 1 drop, BOTH EYES, DIRECT ED, Starting on Fri03/30/25 at 1100, Until Fri03/30/25 at 2259, Administer for pneumo tonometry, tonopen tonometry, or pachymetry. In the event of a proparacaine shortage, administer tetracaine 0.5% ophthalmic drops 1 drop in the left eye as directed for pneumo tonometry, tonopen tonometry, or pachymetry Problems Active Problems Problem Classification Problem Date Documented Da te Episodic/Chronic Cataract (2 sources) Artificial lens present; Translations: [Presence of intraocular lens] Onset: 5 03-30-2025 Chronic Chronic obstructive pulmonary disease and bronchiectasis (12 sources) Mild chronic obstructive pulmonary disease; Translations: [Chronic obstructive pulmonary disease, unspecified] Onset: 5 07-23-2023 Chronic Congestive heart failure; nonhypertensive (13 sources) Heart failure with normal ejection fraction; Translations: [Unspecified diastolic (congestive) heart failure] Onset: 5 05-02-2022 Chronic Coronary atherosclerosis and other heart disease (10 sources) Calcification of coronary artery; Translations: [Coronary arteriosclerosis] Onset: 5 03-13-2024 Chronic Deficiency and other anemia (1 source) Vitamin B12 deficiency anemia, unspecified; Translations: [Vitamin B12 deficiency anemia, unspecified] Onset: Episodic Diabetes mellitus with complications (2 sources) 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, bilateral; Translations: [Diabetes with ophthalmic manifestations, type II or unspecified type, not stated as uncontrolled] Onset: 5 03-30-2025 Chronic Diabetes mellitus without complication (15 sources) Diabetes mellitus; Translations: [Type 2 diabetes mellitus without complications] Onset: 5 05-03-2022 Chronic Disorders of lipid metabolism (13 sources) Dyslipidemia; Translations: [Hyperlipidemia, unspecified] Onset: 5 04-01-2022 Chronic Esophageal disorders (5 sources) Gastroesophageal reflux disease; Translations: [Gastro-esophageal reflux disease without esophagitis] Onset: 5 04-25-2025 Chronic Essential hypertension (14 sources) Hypertensive disorder; Translations: [Essential (primary) hypertension] Onset: 5 04-01-2022 Chronic Nonmalignant breast conditions (16 sources) Breast lump; Translations: [Unspecified lump in unspecified breast] Onset: 5 07-01-2023 Episodic Nutritional deficiencies (1 source) Vitamin D deficiency, unspecified; Translations: [Vitamin D deficiency, unspecified] Onset: 5 Chronic Other congenital anomalies (6 sources) Umbilicus finding; Translations: [Congenital malformation, unspecified] 08-22-2023 Chronic Other congenital anomalies (6 sources) Congenital malformation, unspecified; Translations: [Congenital anomaly, unspecified] Onset: 5 08-22-2023 Chronic Other connective tissue disease (5 sources) History of right total knee replacement; Translations: [Presence of right artificial knee joint] Onset: 5 04-25-2025 Chronic Other eye disorders (4 sources) Bilateral eye band keratopathy; Translations: [Band keratopathy, bilateral] 03-30-2025 Episodic Other eye disorders (4 sources) Bilateral keratoconus of corneas; Translations: [Keratoconus, unspecified, bilateral] 03-30-2025 Episodic Other eye disorders (1 source) Malposition of eyelashes; Translations: [Trichiasis without entropion left eye, unspecified eyelid] 03-30-2025 Episodic Other eye disorders (4 sources) 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; Translations: [Nodular corneal degeneration, left eye] 03-30-2025 Episodic Other eye disorders (1 source) Tear film insufficiency; Translations: [Dry eye syndrome of bilateral lacrimal glands] 03-30-2025 Episodic Other eye disorders (2 sources) Band keratopathy, right eye; Translations: [Band keratopathy, right eye] Onset: 5 Episodic Other eye disorders (1 source) Keratoconus, unspecified, bilateral; Translations: [Keratoconus of both eyes] Onset: 5 Episodic Other eye disorders (1 source) Nodular corneal degeneration, left eye; Translations: [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] Onset: 5 Episodic Other eye disorders (1 source) Band keratopathy, bilateral; Translations: [Band keratopathy, bilateral] Onset: 5 Episodic Other eye disorders (1 source) Trichiasis without entropion left eye, unspecified eyelid; Translations: [Trichiasis without entropion left eye, unspecified eyelid] Onset: 5 Episodic Other eye disorders (1 source) Dry eye syndrome of bilateral lacrimal glands; Translations: [Dry eye syndrome of both eyes] Onset: 5 Episodic Other gastrointestinal disorders (3 sources) Umbilical discharge; Translations: [Other specified symptoms and signs involving the digestive system and abdomen] 10-21-2024 Episodic Other lower respiratory disease (9 sources) Dyspnea on exertion; Translations: [Other forms of dyspnea] Onset: 5 03-13-2024 Episodic Other nutritional; endocrine; and metabolic disorders (5 sources) Body mass index 30+ - obesity; Translations: [Body mass index (BMI) 35.0-35.9, adult] Onset: 5 04-25-2025 Chronic Other nutritional; endocrine; and metabolic disorders (1 source) Hypomagnesemia; Translations: [Hypomagnesemia] Onset: 5 Chronic Other screening for suspected conditions (not mental disorders or infectious disease) (3 sources) Encounter for screening mammogram for malignant neoplasm of breast; Translations: [Encounter for screening mammogram for malignant neoplasm of breast] Onset: 4 Episodic Residual codes; unclassified (5 sources) Obstructive sleep apnea syndrome; Translations: [Obstructive sleep apnea (adult) (pediatric)] Onset: 5 04-25-2025 Chronic Residual codes; unclassified (11 sources) Family history of breast cancer; Translations: [Family history of malignant neoplasm of breast] Onset: 5 07-23-2023 Episodic Residual codes; unclassified (11 sources) Family history of malignant neoplasm of ovary; Translations: [Family history of malignant neoplasm of ovary] Onset: 5 07-23-2023 Episodic Retinal detachments; defects; vascular occlusion; and retinopathy (2 sources) Age related macular degeneration; Translations: [Unspecified macular degeneration] Onset: 5 03-30-2025 Chronic Spondylosis; intervertebral disc disorders; other back problems (3 sources) Degeneration of lumbar intervertebral disc; Translations: [Degeneration of intervertebral disc of lumbar region] 12-03-2024 Chronic Spondylosis; intervertebral disc disorders; other back problems (9 sources) Spinal stenosis of lumbar region; Translations: [Spinal stenosis, lumbar region without neurogenic claudication] Onset: 5 11-17-2023 Episodic Unclassified (1 source) Degeneration of intervertebral disc of lumbar region Unclassified (1 source) Spinal stenosis at L4-L5 level Unclassified (1 source) M51.360 - Other intervertebral disc degeneration, lumbar region with discogenic back pain only,M48.061 - Spinal stenosis, lumbar region without neurogenic claudication Unclassified (1 source) Other intervertebral disc degeneration, lumbar region with discogenic back pain only; Translations: [Other intervertebral disc degeneration, lumbar region with discogenic back pain only] Onset: 5 Unclassified (1 source) Other intervertebral disc degeneration, lumbar region without mention of lumbar back pain or lower extremity pain; Translations: [Other intervertebral disc degeneration, lumbar region without mention of lumbar back pain or lower extremity pain] Onset: 5 Unclassified (1 source) Low back pain, unspecified; Translations: [Low back pain, unspecified] Onset: 5 Past or Other Problems Problem Classification Problem Date Documented Da te Episodic/Chronic Deficiency and other anemia (3 sources) Iron deficiency anemia, unspecified; Translations: [Iron deficiency anemia, unspecified] Onset: 10-04-2024 Episodic Other eye disorders (4 sources) Band keratopathy of right eye; Translations: [Band keratopathy, right eye] Onset: 05-09-2025 Resolved: 05-09-2025 03-30-2025 Episodic Other gastrointestinal disorders (2 sources) Other specified symptoms and signs involving the digestive system and abdomen; Translations: [Other specified symptoms and signs involving the digestive system and abdomen] Onset: 11-16-2024 Episodic Results Test Name Value Interpretation Reference Range Facility Orthopedic Visit Reporton Orthopedic Visit Report [facility] [address] [place] [address] OFFICE VISIT Date of Service: 05/27/25 MR#: [id number] Acct: [id number] Name: LYNSEY DOTY Rep #: [id number] : 1955 Provider: BALBINA Ventura Age/Sex: 70/F [place] [facility] [place] Status: Signed Intake Vital Signs 12/03/24 13:16 Height 4 ft 8 in Intake Visit Reasons: LUMBAR SPINE Chief Complaint: Lumbar spine pain Blending Line Attendant Required: No Accompanied by: Self Is patient in pain?: No Allergies No Known Allergies Allergy (Verified 05/27/25 08:32) Medications ???Medication ???Instructions ???Recorded ???Confirmed ???Type calcium 600 mg (as carbonate)-vit 1 tab PO DAILY 08/22/23 05/27/25 History D3 1,000 unit-vitamin K2 90 mcg tab carvedilol 6.25 mg tablet 3.125 mg PO BID 08/22/23 05/27/25 History fluticasone 500 mcg-salmeterol 50 1 inh inhalation BID 08/22/2302/13 History mcg/dose blistr powdr for inhalation (Wixela Inhub) glipizide 10 mg tablet 20 mg PO DAILY 08/22/23 05/27/25 H istory ibandronate 150 mg tablet 150 mg PO QMONTH 08/22/23 05/27/25 History ipratropium 0.5 mg-albuterol 3 mg 3 ml inhalation Q6H PRN sob 08/2205/27/25 History (2.5 mg base)/3 mL nebulization soln losartan 50 mg tablet 50 mg PO DAILY 08/22/23 05/27/25 H istory rosuvastatin 40 mg tablet 40 mg PO DAILY 08/22/23 05/27/25 H istory pantoprazole 40 mg tablet,delayed 40 mg PO QDAY 05/27/25 05/27/25 H istory release Have you fallen in the past year?: Yes PFSH Medical History (Updated 12/03/24 @ 14:10 by BALBINA Ventura) Umbilical discharge Sleep apnea COPD (chronic obstructive pulmonary disease) GERD (gastroesophageal reflux disease) Hypertension Arthritis Diabetes Umbilical abnormality Surgical History (Updated 05/27/25 @ 08:36 by Kayy Bello) History of eye surgery History of total left knee replacement History of laparoscopic cholecystectomy History of hysterectomy Family History Mother Colon cancer Hypertension Father Hypertension Social History Smoking Status: Never smoker alcohol intake: current alcohol intake frequency: a few times a month substance use type: does not use HPI LUMBAR SPINE Details: This documentation accurately reflects the service provided and the decisions made by me, BALBINA Ventura 05/27/25 0815. Part of today???s visit was documented by [ ], acting as scribe. LYNSEY DOTY is a 70 year old F here today for low back pain. Lumbar MRI 05/18/25 to be reviewed. Reports low back pain continues unchanged from previous. Continues to say that she has more right sided lower back pain and pain that worsens with walking or standing. She continues to use a cane to help with her back pain. No recent injections. Patient says that she continues to try to be active on her own and has been trying to walk more. OV 12.03.24 lumbar spine pain. Says that her pain has been going on for the last 2-3 years and worsening over the last year. She saw Dr. Kohli last year who did an MRI at that time. This pain gets worse at times depending on what she does. Says that her walking distance has decreased due to the pain in her back she says that some days she can only walk several feet before her pain increases while other days she can walk about 50 feet before she has pain. She denies any pain that radiates down her legs with walking all of her pain is in her low back towards the right side. She can't stand up straight for long periods of time. Has been walking everyday. Denies any physical therapy. The pain is in the lower back. It feels sore all the times. The pain is sharp. Has been having trouble with balance. She uses a cane for support. Patient uses ice and heat which has been helping. Sometimes she has pain when walking down the hallway. Hx of hysterectomy. She has done PT in the past over a year ago. Hx of diabetes last a1c was 6.9, hx of COPD does not wear oxygen, takes carvedilol for bradycardia, says she had a bone density scan last year and says it was normal. She does take ibandronate for her bone density which she says in the past has been low. Her last bone density scan was done at [facility]. She did try an injection in her back in the past with Dr. Treadwell however she reports that this was a bad experience and caused bilateral leg numbness and does not wish for any more injections. She has started using a cane regularly over the last years for her back pain. Denies any balance or dexterity issues. Ortho Exam General General: Yes no acute distress Neurologic: Yes alert and Yes oriented x3 Spine SPINE TESTING CERVICAL THORACIC LUMBA (more content not included)... Normal [facility] Magnetic resonance imaging r eportOrdered By: Jimmy Reinoso on 05-20-2025 Study report [facility] [address] [place], [place] [id number] Spine Lumbar (Routine) MR#: [id number] Acct: [id number] Name: LYNSEY DOTY Rep #: [id number] : 1955 F 70 From: Austin Reinoso MD PCP: Dr. Ghassan Hartley MD Status: REG C LI Study:Spine Lumbar (Routine) Date of Exam: 05/18/25 Exam# [id number] Ordering Dr: Brennen Castro PROCEDURE: SPINE LUMBAR (ROUTINE) 05/18/2025 REASON FOR EXAM: PAIN TECHNIQUE: Procedure Code: MRISPL Modality: MR Procedure: SPINE LUMBAR (ROUTINE) COMPARISON: 12/08/2023 FINDINGS: Normal lumbar alignment without compression deformity. No retroperitoneal abnormality. L1-2 is unremarkable. At L2-3 there is mild canal narrowing from concentric annular bulging and facet arthrosis. Similar to prior. At L3-4 rzjn-vl-xgciafrv canal narrowing from hypertrophic facet arthrosis and dorsal osteophytic spurring. Similar findings previously. Similar far right disc bulge at L3-4 may impinge the right far lateral L3 nerve. At L4-5 qmxa-bx-pwsgbpvm circumferential spinal stenosis from facet arthrosis, disc space narrowing, disc bulging and ligamentum flavum hypertrophy. Moderate inferior foraminal narrowing bilaterally was also present previously At L5-S1, mild central canal narrowing from central shallow protrusion. Moderate to severe left L5 foraminal narrowing was also present previously. Correlate for left L5 radiculopathy. MRI/Spine Lumbar (Routine) IMPRESSION: Similar findings to the prior study Reading Location: [facility] CC: BALBINA Ventura; Dr. Ghassan Hartley MD ~ Furniture Maker: Signed [facility] Spine Lumbar (Routine)on Spine Lumbar (Routine) [facility] [address] [place] [address] Spine Lumbar (Routine) MR#: [id number] Acct: [id number] Name: LYNSEY DOTY Rep #: [id number] : 1955 F 70 From: Jimmy Reinoso MD PCP: Dr. Ghassan Hartley MD Status: REG CLI Study: Spine Lumbar (Routine) Date of Exam: 05/18/25 Exam# [id number] Ordering Dr: Emerson Castro PROCEDURE: SPINE LUMBAR (ROUTINE) 05/18/2025 REASON FOR EXAM: PAIN TECHNIQUE: Procedure Code: MRISPL Modality: MR Procedure: SPINE LUMBAR (ROUTINE) COMPARISON: 12/08/2023 FINDINGS: Normal lumbar alignment without compression deformity. No retroperitoneal abnormality. L1-2 is unremarkable. At L2-3 there is mild canal narrowing from concentric annular bulging and facet arthrosis. Similar to prior. At L3-4 dodz-xs-uiqmxlrl canal narrowing from hypertrophic facet arthrosis and dorsal osteophytic spurring. Similar findings previously. Similar far right disc bulge at L3-4 may impinge the right far lateral L3 nerve. At L4-5 blxq-lg-lscxkjgw circumferential spinal stenosis from facet arthrosis, disc space narrowing, disc bulging and ligamentum flavum hypertrophy. Moderate inferior foraminal narrowing bilaterally was also present previously At L5-S1, mild central canal narrowing from central shallow protrusion. Moderate to severe left L5 foraminal narrowing was also present previously. Correlate for left L5 radiculopathy. MRI/Spine Lumbar (Routine) IMPRESSION: Similar findings to the prior study [facility] CC: BALBINA Ventura; Dr. Ghassan Hartley MD Furniture Maker: Signed Normal [facility] Absolute lymphocyte countOrd ered By: Ghassan Hartley on 05-12-2025 Lymphocytes Auto (Unsp spec) [#/Vol] 2.76 10*3/uL 0.83-4.51 [facility] Absolute neutrophil countOrd ered By: Ghassan Hartley on 05-12-2025 Neutrophils (Bld) [#/Vol] 3.8 10*3/uL 2.0-7.7 [facility] Anion gap in Serum or Plasma Ordered By: Ghassan Hartley on 05-12-2025 Anion gap [Moles/Vol] 13 mmol/L 5-15 [facility] Automated blood erythrocyte countOrdered By: Ghassan Hartley on 05-12-2025 RBC (Bld) [#/Vol] 4.77 10*6/uL Normal 4.2-5.4 [facility] Comment on above: Performed By: #### L 501.9520, L100.0100, L500.4100, L500.4050, L502.0250, L3890.6301, L501.9985, L506.1001 #### [facility] [address] [place], [address] Automated blood hematocrit ( percentage)Ordered By: Ghassan Naeem on 05-12-2025 Hematocrit (Bld) [Volume fraction] 42.6 % Normal 37-47 [facility] Comment on above: Performed By: #### L 501.9520, L100.0100, L500.4100, L500.4050, L502.0250, L3890.6301, L501.9985, L506.1001 #### [facility] [address] [place], [address] Automated lymphocyte count a s percentage of total leukocytesOrdered By: Ghassan Hartley on 05-12-2025 Lymphocytes/100 WBC Auto (Unsp spec) 37.8 % 19-41 [facility] BUN/creatinine ratioOrdered By: Ghassan Hartley on 05-12-2025 Urea nitrogen/Creatinine [Mass ratio] 29.7 mg/mg High 10-20 [facility] Basophil percentageOrdered B y: Ghassan Hartley on 05-12-2025 Basophils/100 WBC (Bld) 1.1 % High 0-1 [facility] Comment on above: Performed By: #### L 501.9520, L100.0100, L500.4100, L500.4050, L502.0250, L3890.6301, L501.9985, L506.1001 #### [facility] [address] [place], [place], [id number] Bilirubin, totalOrdered By: Ghassan Hartley on 05-12-2025 Bilirubin [Mass/Vol] 0.47 mg/dL 0.00-1.30 [facility] CBC W/Diff, Automatedon 04-23 Absolute Lymph 2.76 X10 3/uL Normal 0.83-4.51 [facility] Comment on above: Performed By: #### L 501.9520, L100.0100, L500.4100, L500.4050, L502.0250, L3890.6301, L501.9985, L506.1001 #### [facility] [address] [place], [address] Absolute Neut 3.8 X10 3/uL Normal 2.0-7.7 [facility] Comment on above: Performed By: #### L 501.9520, L100.0100, L500.4100, L500.4050, L502.0250, L3890.6301, L501.9985, L506.1001 #### [facility] [address] [place], [address] IG% 0.100 Normal 0.0-0.9 [facility] Comment on above: Result Comment: IG% - Immature Granulocytes (promyelocytes, myelocytes and metamyelocytes) > 1% indicates that a LEFT SHIFT is Present. Performed By: #### L 501.9520, L100.0100, L500.4100, L500.4050, L502.0250, L3890.6301, L501.9985, L506.1001 #### [facility] [address] [place], [address] Lymphocytes/100 WBC (Bld) 37.8 % Normal 19-41 [facility] Comment on above: Performed By: #### L 501.9520, L100.0100, L500.4100, L500.4050, L502.0250, L3890.6301, L501.9985, L506.1001 #### [facility] [address] [place], [address] Nucleated RBC (Bld) [#/Vol] 0 10*3/uL Normal 0-5 [facility] Comment on above: Performed By: #### L 501.9520, L100.0100, L500.4100, L500.4050, L502.0250, L3890.6301, L501.9985, L506.1001 #### [facility] [address] [place], [address] RDW SD 43.7 fl Normal 35.1-43.9 [facility] Comment on above: Performed By: #### L 501.9520, L100.0100, L500.4100, L500.4050, L502.0250, L3890.6301, L501.9985, L506.1001 #### [facility] [address] [place], [address] Calculated very low density lipoprotein (VLDL) cholesterol measurementOrdered By: Ghassan Hartley on 05-12-2025 Calculated very low density lipoprotein (VLDL) cholesterol measurement 41 mg/dL High 5-40 [facility] Carbon dioxide, total [Moles /volume] in Central venous bloodOrdered By: Ghassan Hartley on 05-12-2025 CO2 [Moles/Vol] 23.9 mmol/L 21.0-32.0 [facility] Chloride assayOrdered By: Van Hartley on 05-12-2025 Chloride [Moles/Vol] 102 mmol/L 98-108 [facility] Comprehensive Metabolic Prof ilon 05-12-2025 Albumin [Mass/Vol] 4.4 g/dL Normal 3.4-4.8 [facility] Comment on above: Performed By: #### L 501.9520, L100.0100, L500.4100, L500.4050, L502.0250, L3890.6301, L501.9985, L506.1001 ####[facility] [address] [place], [address] Albumin/Globulin [Mass ratio] 1.4 {ratio} Normal 0.9-2.4 [facility] Comment on above: Performed By: #### L 501.9520, L100.0100, L500.4100, L500.4050, L502.0250, L3890.6301, L501.9985, L506.1001 ####[facility] [address] [place], [address] ALK PHOS 104 U/L Normal 35-104 [facility] Comment on above: Performed By: #### L 501.9520, L100.0100, L500.4100, L500.4050, L502.0250, L3890.6301, L501.9985, L506.1001 ####[facility] [address] [place], [address] ALT [Catalytic activity/Vol] 31 U/L Normal <=34 [facility] Comment on above: Performed By: #### L 501.9520, L100.0100, L500.4100, L500.4050, L502.0250, L3890.6301, L501.9985, L506.1001 ####[facility] [address] [place], [place], [id number]) AST [Catalytic activity/Vol] 25 U/L Normal <=31 [facility] Comment on above: Performed By: #### L 501.9520, L100.0100, L500.4100, L500.4050, L502.0250, L3890.6301, L501.9985, L506.1001 ####[facility] [address] [place], [place], [id number] Bilirubin [Mass/Vol] 0.47 mg/dL Normal 0.00-1.30 [facility] Comment on above: Performed By: #### L 501.9520, L100.0100, L500.4100, L500.4050, L502.0250, L3890.6301, L501.9985, L506.1001 ####[facility] [address] [place], [address] BUN/CRE 29.7 RATIO High 10-20 [facility] Comment on above: Performed By: #### L 501.9520, L100.0100, L500.4100, L500.4050, L502.0250, L3890.6301, L501.9985, L506.1001 ####[facility] [address] [place], [address] Calcium [Mass/Vol] 9.9 mg/dL Normal 7.6-11.0 [facility] Comment on above: Performed By: #### L 501.9520, L100.0100, L500.4100, L500.4050, L502.0250, L3890.6301, L501.9985, L506.1001 ####[facility] [address] [place], [address] Chloride [Moles/Vol] 102 mmol/L Normal 98-108 [facility] Comment on above: Performed By: #### L 501.9520, L100.0100, L500.4100, L500.4050, L502.0250, L3890.6301, L501.9985, L506.1001 ####[facility] [address] [place], [address] CO2 [Moles/Vol] 23.9 mmol/L Normal 21.0-32.0 [facility] Comment on above: Performed By: #### L 501.9520, L100.0100, L500.4100, L500.4050, L502.0250, L3890.6301, L501.9985, L506.1001 ####[facility] [address] [place], [address] Creatinine [Mass/Vol] 0.72 mg/dL Normal 0.70-1.20 [facility] Comment on above: Performed By: #### L 501.9520, L100.0100, L500.4100, L500.4050, L502.0250, L3890.6301, L501.9985, L506.1001 ####[facility] [address] [place], [address] GAP 13 Normal 5-15 [facility] Comment on above: Performed By: #### L 501.9520, L100.0100, L500.4100, L500.4050, L502.0250, L3890.6301, L501.9985, L506.1001 ####[facility] [address] [place], [address] GFR/1.73 sq M.predicted among non-blacks MDRD (S/P/Bld) [Vol rate/Area] 90 mL/min/{1.73_m2} Normal >60 [facility] Comment on above: Result Comment: mL/m in/1.73m2 CKD-EPI Creatinine Equation (2020) Performed By: #### L 501.9520, L100.0100, L500.4100, L500.4050, L502.0250, L3890.6301, L501.9985, L506.1001 ####[facility] [address] [place], [address] Globulin (S) [Mass/Vol] 3.3 g/dL Normal 2.2-4.2 [facility] Comment on above: Performed By: #### L 501.9520, L100.0100, L500.4100, L500.4050, L502.0250, L3890.6301, L501.9985, L506.1001 ####[facility] [address] [place], [address] Glucose [Mass/Vol] 165 mg/dL High 70-99 [facility] Comment on above: Performed By: #### L 501.9520, L100.0100, L500.4100, L500.4050, L502.0250, L3890.6301, L501.9985, L506.1001 ####[facility] [address] [place], [address] Potassium [Moles/Vol] 3.7 mmol/L Normal 3.3-5.1 [facility] Comment on above: Result Comment: Hemo lysis present, Results??could be affected. ?? Performed By: #### L 501.9520, L100.0100, L500.4100, L500.4050, L502.0250, L3890.6301, L501.9985, L506.1001 ####[facility] [address] [place], [address] Sodium [Moles/Vol] 139 mmol/L Normal 133-145 [facility] Comment on above: Performed By: #### L 501.9520, L100.0100, L500.4100, L500.4050, L502.0250, L3890.6301, L501.9985, L506.1001 ####[facility] [address] [place], [place], [id number] T PROT 7.7 g/dL Normal 5.9-8.4 [facility] Comment on above: Performed By: #### L 501.9520, L100.0100, L500.4100, L500.4050, L502.0250, L3890.6301, L501.9985, L506.1001 ####[facility] [address] [place], [place], [id number] Urea nitrogen [Mass/Vol] 21 mg/dL High 4-19 [facility] Comment on above: Performed By: #### L 501.9520, L100.0100, L500.4100, L500.4050, L502.0250, L3890.6301, L501.9985, L506.1001 ####[facility] [address] [place], [place], [phone]) Eosinophil percentageOrdered By: Ghassan Hartley on 05-12-2025 Eosinophils/100 WBC (Bld) 2.1 % Normal 0-5 [facility] Comment on above: Performed By: #### L 501.9520, L100.0100, L500.4100, L500.4050, L502.0250, L3890.6301, L501.9985, L506.1001 #### [facility] [address] [place], [place], [id number] Erythrocyte distribution wid th ratioOrdered By: Ghassan Hartley on 05-12-2025 Erythrocyte distribution width (RBC) [Ratio] 13.3 % Normal 11.6-14.6 [facility] Comment on above: Performed By: #### L 501.9520, L100.0100, L500.4100, L500.4050, L502.0250, L3890.6301, L501.9985, L506.1001 #### [facility] [address] [facility] [place], [place], [id number] Erythrocyte distribution wid th standard deviationOrdered By: Ghassan Hartley on 05-12-2025 Erythrocyte distribution width (RBC) [Ratio] 43.7 fl 35.1-43.9 [facility] Glomerular filtration rate ( GFR) estimation/1.73 sq m using serum, plasma, or whole bOrdered By: Ghassan Hartley on 05-12-2025 GFR/1.73 sq M.predicted among non-blacks MDRD (S/P/Bld) [Vol rate/Area] 90 mL/min/{1.73_m2} >60 [facility] Comment on above: mL/min/1.73m2 CKD-EP I Creatinine Equation (2020) Hemoglobin A1con 05-12-2025 HbA1c (Bld) [Mass fraction] 6.9 % High <=5.6 [facility] Comment on above: Result Comment: Norm al < 5.7 % Prediabetic 5.7 - 6.4 % Diabetic >or= 6.5 % Please note range changes. Performed By: #### L 501.9520, L100.0100, L500.4100, L500.4050, L502.0250, L3890.6301, L501.9985, L506.1001 #### [facility] [address] [place], [place], [address] Hemoglobin A1c percentageOrd ered By: Ghassan Hartley on 05-12-2025 HbA1c (Bld) [Mass fraction] 6.9 % High <5.7 [facility] Comment on above: Normal < 5.7 % Predi abetic 5.7 - 6.4 % Diabetic >or= 6.5 % Please note range changes. Hemoglobin measurementOrdere d By: Ghassan Hartley on 05-12-2025 Hemoglobin (Bld) [Mass/Vol] 13.5 g/dL Normal 12.0-15.0 [facility] Comment on above: Performed By: #### L 501.9520, L100.0100, L500.4100, L500.4050, L502.0250, L3890.6301, L501.9985, L506.1001 #### [facility] [address] [place], [place], [id number] Hepatitis C Antibodyon 05-12 Hepatitis C Ab Non-Reactive Normal Nonreactive [facility] Comment on above: Result Comment: Reac tive: Presumptive evidence of antibodies to HCV. Follow CDC recommendations for supplemental testing. Non-Reactive: Antibodies to HCV were not detected; does not exclude the possibility of exposure to HCV Reactive Results are presumptive evidence of antibodies to HCV. Follow CDC recommendations for supplemental testing. Order confirmation testing: HCV Quant by PCR testing - HCVPCR #[id number] Non Reactive: < 0.8 Equivocal: >/= 0.8 to < 1.0 Reactive: >/= 1.0 The CDC requires that a reactive/equivocal HCV antibody result be sent out for confirmation. HCV Quant by PCR testing. Performed By: #### L 501.9520, L100.0100, L500.4100, L500.4050, L502.0250, L3890.6301, L501.9985, L506.1001 ####[facility] [address] [place], [place], [id number] Immature granulocytes/100 WB C Auto (Bld)Ordered By: Ghassan Hartley on 08-21-2025 Immature granulocytes/100 WBC (Bld) 0.100 % 0.0-0.9 [facility] Comment on above: IG% - Immature Granu locytes (promyelocytes, myelocytes and metamyelocytes) > 1% indicates that a LEFT SHIFT is Present. LDL calc ser/plasOrdered By: Ghassan Hartley on 05-12-2025 Cholesterol in LDL [Mass/Vol] 83 mg/dL [facility] Comment on above: Vagpuuxwrf=772-848 m g/dL & Higher Cjtw=431 mg/dL or greaterFriedwald Equation for LDL-C Laboratory - Chemistry and C hemistry - challengeOrdered By: Ghassan Hartley on 05-12-2025 AST [Catalytic activity/Vol] 25 U/L <32 [facility] Lipid Profileon 05-12-2025 CHOL:HDL 2.77 Normal [facility] Comment on above: Performed By: #### L 501.9520, L100.0100, L500.4100, L500.4050, L502.0250, L3890.6301, L501.9985, L506.1001 #### [facility] [address] [place], [address] Cholesterol [Mass/Vol] 194 mg/dL Normal <=200 [facility] Comment on above: Result Comment: Chol esterol level, Desirable <200 mg/dL Borderline high cholesterol 200-239 mg/dL High cholesterol >=240 mg/dL Recommendations of the NCEP Adult Treatment Panel for the following risk-cutoff thresholds for the [place] population. Performed By: #### L 501.9520, L100.0100, L500.4100, L500.4050, L502.0250, L3890.6301, L501.9985, L506.1001 #### [facility] [address] [place], [address] Cholesterol in HDL [Mass/Vol] 70 mg/dL Normal [facility] Comment on above: Result Comment: Ness onal Cholesterol Education Program (NCEP) guidelines: <40 mg/dL: Low HDL-cholesterol (major risk factor for CHD) >= 60 mg/dL: High HDL-cholesterol (negative risk factor for CHD) HDL-cholesterol is affected by a number of factors, e.g. smoking, exercise, hormones, sex and age. Performed By: #### L 501.9520, L100.0100, L500.4100, L500.4050, L502.0250, L3890.6301, L501.9985, L506.1001 #### [facility] [address] [place], [address] Cholesterol in LDL [Mass/Vol] 83 mg/dL Normal [facility] Comment on above: Result Comment: Bord elkdhn=032-400 mg/dL Higher Knpx=260 mg/dL or greater Friedwald Equation for LDL-C Performed By: #### L 501.9520, L100.0100, L500.4100, L500.4050, L502.0250, L3890.6301, L501.9985, L506.1001 #### [facility] [address] [place], [address] Cholesterol in VLDL [Mass/Vol] 41 mg/dL High 5-40 [facility] Comment on above: Performed By: #### L 501.9520, L100.0100, L500.4100, L500.4050, L502.0250, L3890.6301, L501.9985, L506.1001 #### [facility] [address] [place], [address] Triglyceride [Mass/Vol] 203 mg/dL High [facility] Comment on above: Result Comment: The drugs N-Acetylcysteine and Metamizole may falsely depress this assay. Normal range: <150 mg/dL Borderline High: 150-199 mg/dL High: 200-499 mg/dL Very High: >500 mg/dL Performed By: #### L 501.9520, L100.0100, L500.4100, L500.4050, L502.0250, L3890.6301, L501.9985, L506.1001 #### [facility] [address] [place], [place], [id number] MCV (mean corpuscular volume ) determinationOrdered By: Ghassan Hartley on 05-12-2025 MCV (RBC) [Entitic vol] 89.3 fL Normal 81-99 [facility] Comment on above: Performed By: #### L 501.9520, L100.0100, L500.4100, L500.4050, L502.0250, L3890.6301, L501.9985, L506.1001 #### [facility] [address] [place], [address] Mean corpuscular hemoglobin (MCH) determinationOrdered By: Ghassan Hartley on 05-12-2025 MCH (RBC) [Entitic mass] 28.3 pg Normal 27.0-32.0 [facility] Comment on above: Performed By: #### L 501.9520, L100.0100, L500.4100, L500.4050, L502.0250, L3890.6301, L501.9985, L506.1001 #### [facility] [address] [facility] [place], [address] Mean corpuscular hemoglobin concentration (MCHC) determinationOrdered By: Ghassan Hartley on 05-12-2025 MCHC (RBC) [Mass/Vol] 31.7 g/dL Low 32-36 [facility] Comment on above: Performed By: #### L 501.9520, L100.0100, L500.4100, L500.4050, L502.0250, L3890.6301, L501.9985, L506.1001 #### [facility] [address] [facility] [place] [place], [address] Mean platelet volume determi nationOrdered By: Ghassan Hartley on 05-12-2025 Platelet mean volume (Bld) [Entitic vol] 9.0 fL Normal 6.2-12.0 [facility] Comment on above: Performed By: #### L 501.9520, L100.0100, L500.4100, L500.4050, L502.0250, L3890.6301, L501.9985, L506.1001 #### [facility] [address] [place], [address] Microalb:Creat Ratio,Random URon 05-12-2025 Creatinine [Mass/Vol] 36.70 mg/dL Normal 28.00-217.00 [facility] Comment on above: Performed By: #### L 501.9520, L100.0100, L500.4100, L500.4050, L502.0250, L3890.6301, L501.9985, L506.1001 #### [facility] [address] [place], [address] MALB:CREAT UNABLE TO CALCULATE Normal <30 mg/g CRE [facility] Comment on above: Performed By: #### L 501.9520, L100.0100, L500.4100, L500.4050, L502.0250, L3890.6301, L501.9985, L506.1001 #### [facility] [address] [place], [address] MICROALBUMIN,UR < 12.0 Normal <20 mg/L [facility] Comment on above: Performed By: #### L 501.9520, L100.0100, L500.4100, L500.4050, L502.0250, L3890.6301, L501.9985, L506.1001 #### [facility] [address] [place], [address] Microalbumin/creat ratio urO rdered By: Ghassan Hartley on 05-12-2025 Urine microalbumin/creatinin e ratio measurement UNABLE TO CALCULATE mg/g CRE <30 [facility] Monocyte percentageOrdered B y: Ghassan Hartley on 05-12-2025 Monocytes/100 WBC (Bld) 6.8 % Normal 0-10 [facility] Comment on above: Performed By: #### L 501.9520, L100.0100, L500.4100, L500.4050, L502.0250, L3890.6301, L501.9985, L506.1001 #### [facility] [address] [place], [place], [id number] Neutrophil percentageOrdered By: Ghassan Hartley on 05-12-2025 Neutrophils/100 WBC (Bld) 52.1 % Normal 47-70 [facility] Comment on above: Performed By: #### L 501.9520, L100.0100, L500.4100, L500.4050, L502.0250, L3890.6301, L501.9985, L506.1001 #### [facility] [address] [place], [address] (646) Nucleated red blood cell per centageOrdered By: Ghassan Hartley on 05-12-2025 Nucleated RBC/100 WBC (Bld) [Ratio] 0 % 0-5 [facility] Platelet countOrdered By: Van Hartley on 05-12-2025 Platelets (Bld) [#/Vol] 208 10*3/uL Normal 150-450 [facility] Comment on above: Performed By: #### L 501.9520, L100.0100, L500.4100, L500.4050, L502.0250, L3890.6301, L501.9985, L506.1001 #### [facility] [address] [place], [place], [id number] Potassium measurement (mass/ volume)Ordered By: Ghassan Hartley on 05-12-2025 Potassium (Unsp spec) [Mass/Vol] 3.7 mmol/L 3.3-5.1 [facility] Comment on above: Hemolysis present, R esults could be affected. Random urine creatinine tess urement (mass/volume)Ordered By: Ghassan Hartley on 05-12-2025 Creatinine Unsp time (U) [Mass/Vol] 36.70 mg/dL 28.00-217.00 [facility] Screening total cholesterol/ high density lipoprotein (HDL) cholesterol ratioOrdered By: Ghassan Hartley on 05-12-2025 Cholesterol.total/Chol esterol in HDL [Mass ratio] 2.77 {ratio} [facility] Serum creatinine measurement (mass/volume)Ordered By: Ghassan Hartley on 05-12-2025 Creatinine [Mass/Vol] 0.72 mg/dL 0.70-1.20 [facility] Serum globulin measurementOr dered By: Ghassan Hartley on 05-12-2025 Globulin (S) [Mass/Vol] 3.3 g/dL 2.2-4.2 [facility] Serum glucose measurement (m ass/volume)Ordered By: Ghassan Hartley on 05-12-2025 Glucose [Mass/Vol] 165 mg/dL High 70-99 [facility] Serum or plasma alanine ward otransferase (ALT) measurementOrdered By: Ghassan Hartley 05-12-2025 ALT [Catalytic activity/Vol] 31 U/L <35 [facility] Serum or plasma albumin tess urement (mass/volume)Ordered By: Ghassan Hartley 05-12-2025 Albumin [Mass/Vol] 4.4 g/dL 3.4-4.8 [facility] Serum or plasma albumin/glob ulin mass ratioOrdered By: Ghassan Hartley 05-12-2025 Albumin/Globulin [Mass ratio] 1.4 {ratio} 0.9-2.4 [facility] Serum or plasma alkaline arthur sphatase measurementOrdered By: Ghassan Hartley 05-12-2025 ALP [Catalytic activity/Vol] 104 U/L 35-104 [facility] Serum or plasma calcium tess urement (mass/volume)Ordered By: Ghassan Hartley 05-12-2025 Calcium [Mass/Vol] 9.9 mg/dL 7.6-11.0 [facility] Serum or plasma cholesterol in HDL measurement (mass/volume)Ordered By: Ghassan Hartley on 05-12-2025 Cholesterol in HDL [Mass/Vol] 70 mg/dL >40 [facility] Comment on above: National Cholesterol Education Program (NCEP) guidelines:<40 mg/dL: Low HDL-cholesterol (major risk factor for CHD)>= 60 mg/dL: High HDL-cholesterol (negative risk factor for CHD)HDL-cholesterol is affected by a number of factors, e.g. smoking, exercise, hormones, sex and age. Serum or plasma cholesterol measurement (mass/volume)Ordered By: Ghassan Hartley on 05-12-2025 Cholesterol [Mass/Vol] 194 mg/dL <201 [facility] Comment on above: Cholesterol level, D esirable <200 mg/dLBorderline high cholesterol 200-239 mg/dLHigh cholesterol >=240 mg/dLRecommendations of the NCEP Adult Treatment Panel for the following risk-cutoff thresholds for the [place] population. Serum or plasma urea nitroge n measurement (mass/volume)Ordered By: Ghassan Hartley on 05-12-2025 Urea nitrogen [Mass/Vol] 21 mg/dL High 4-19 [facility] Sodium levelOrdered By: Ghassan Hartley on 05-12-2025 Sodium [Moles/Vol] 139 mmol/L 133-145 [facility] TSH DL <= 0.005 mIU/L QnOrde red By: Ghassan Hartley on 05-12-2025 TSH Qn 2.340 uIU/mL 0.300-4.200 [facility] Thyroid Stim Hormone (TSH)on 05-12-2025 TSH 2.340 uIU/mL Normal 0.300-4.200 [facility] Comment on above: Performed By: #### L 501.9520, L100.0100, L500.4100, L500.4050, L502.0250, L3890.6301, L501.9985, L506.1001 #### [facility] [address] [place], [address] Total proteinOrdered By: Ghassan Hartley on 05-12-2025 Protein [Mass/Vol] 7.7 g/dL 5.9-8.4 [facility] Triglycerides measurementOrd ered By: Ghassan Hartley on 05-12-2025 Triglyceride [Mass/Vol] 203 mg/dL High <199 [facility] Comment on above: The drugs N-Acetylcy steine and Metamizole may falsely depress this assay. Normal range: <150 mg/dLBorderline High: 150-199 mg/dLHigh: 200-499 mg/dLVery High: >500 mg/dL Urine albumin measurement [facility] detection limit of 20 mg/L or less (mass/volume)Ordered By: Ghassan Hartley on 05-12-2025 Albumin DL <= 20 mg/L (U) [Mass/Vol] < 12.0 mg/L <20 mg/L [facility] Vitamin D,25 Hydroxyon 05-12 Vitamin D 25-OH 44.2 ng/mL Normal 30-100 [facility] Comment on above: Result Comment: Delaney min D Status Deficiency: <20 ng/mL (50nmol/L) Insufficiency: 20-30 ng/mL (50-75 nmol/L) Sufficiency: 30-100 ng/mL (75-250 nmol/L) Toxicity: >100 ng/mL (>250 nmol/L) Performed By: #### L 501.9520, L100.0100, L500.4100, L500.4050, L502.0250, L3890.6301, L501.9985, L506.1001 ####[facility] [id number] [place], [address] White blood cell (WBC) count Ordered By: Ghassan Hartley on 05-12-2025 WBC (Bld) [#/Vol] 7.3 10*3/uL Normal 4.4-11.0 [facility] Comment on above: Performed By: #### L 501.9520, L100.0100, L500.4100, L500.4050, L502.0250, L3890.6301, L501.9985, L506.1001 #### [facility] [address] [place], [place], [id number] NURSING PROGon 05-09-2025 NURSING PROG HNO ID: [id number] Author: MARLEY SIFUENTES, ADY Service: ? Author Type: Registered Nurse Type: Nursing Progress Note Filed: 05/09/2025 16:03 Note Text: Msg sent to Dr Bell because no specific eye orders for discharge at 1538. Awaiting orders as in surgery [facility] OPERATIVE NOon 05-09-2025 OPERATIVE NO HNO ID: [id number] Author: LUC BELL MD Service: Ophthalmology Author Type: Physician Type: Operative Report Filed: 05/09/2025 15:22 Note Text: OPERATIVE/PROCEDURE REPORT OPHTHAMOLOGY LOG ID: [id number] SURGERY/PROCEDURE DATE: 05/09/2025 INCISION/PROCEDURE START TIME: 2:59 PM INCISION CLOSE/PROCEDURE END TIME: 3:18 PM SURGEON(S)/PROCEDURALIS T(S) AND MATERIAL HANDLING SUPERVISOR(S): Surgeons and Role: * Luc Bell MD - Primary PROCEDURE(S): Procedure(s) (LRB): REMOVE CORNEAL EPITHELIUM W/ APPLICATION OF CHELATION (Right) PREOPERATIVE DIAGNOSIS: Band keratopathy of cornea, right eye POST-OP/POST-PROCEDURE DIAGNOSIS: Same as Preop OPERATIVE INDICATIONS: blurred vision limiting activities of daily living (ADLs) ANESTHESIA: Local PROCEDURE DETAILS: The patient was transferred to the operating room where the eye was prepared and draped in sterile fashion. An eyelid speculum was placed. Using Weck-cels, the epithelium was debrided over the area of band keratopathy. EDTA-soaked sponges were applied to the cornea for 2 minutes, then irrigated and scraped using a Olmsted blade. The procedure was repeated until all the calcium has dissolved. A bandage contact lens was placed.The operated eye and it was covered with a protective shield. The patient was transferred to the recovery room in stable condition. ESTIMATED BLOOD LOSS: Minimal unless noted here. SPECIMENS: * No specimens in log * IMPLANTABLE DEVICES: * No implants in log * Ocular Co-Morbidities: Yes Intra-operative Complications None I/primary surgeon/proceduralist performed the entire procedure. SIGNATURE: Luc Bell MD PATIENT NAME: Lynsey Doty DATE: May 09, 2025 TIME: 3:20 PM PAGER/CONTACT #: [phone] [facility] NURSING PROGon 05-05-2025 NURSING PROG HNO ID: [id number] Author: ASHLEY BLAND RN Service: ? Author Type: Registered Nurse Type: Nursing Progress Note Filed: 05/05/2025 12:55 Note Text: Preoperative Phone Call Instructions Spoke directly with the patient Your arrival time for your upcoming procedure is 1320 NPO for 8 hrs prior to arriving for surgery, clear liquids only up until 2 hours prior to arrival Transportation w/ responsible adult-no Uber or medical transport We are located at [address] [place] [address] in [facility], [address] on the second floor Leave all valuables, jewelry and piercings at home, the only thing you need to bring is a photo id and insurance card Wear a short sleeve shirt as we will need access to your arm to start an IV No makeup of any kind on the day of surgery Contacts must be removed prior to arrival Discuss fertility status if under 60 Do you have any further questions or concerns No Oral Hypoglycemics: HOLD ALL ON DOS Metformin/Glucophage, linagliptin/Tradjenta, pioglitazone/Actos, glimeperide/Amaryl, glucotrol/Glipizide, sitagliptin/Januvia, glyburide, repaglinide/Prandin, nateglinide/Starlix, pramlintide/Symlin SGLT2 inhibitors: ---HOLD FOR 3 DAYS PREOPERATIVELY canagliflozin/Invokana, dapagliflozin/Farxiga, empagliflozin/Jardiance SGLT2 INHIBITOR: ---HOLD FOR 4 DAYS PRIOR TO SURGERY Ertugliflozin/Steglatro GLP-1 Agonists: ---HOLD THE DOSE ONE WEEK PRIOR TO SURGERY dulaglutide/Trulicity semaglutide/Ozempic/Ryb elsus/ Wegovy liraglutide/Victoza/Sax enda lixsenstide/Adlyxin tirzepatide/Mounjaro exenatide/Bydureon/Byet ta Non-insulin injectables (except GLP-Agonist) HOLD THE DAY OF SURGERY GLP-1 Agonists: oral or DAILY injectable: --- HOLD DAY OF SURGERY Semaglutide/Rybelsus Insulin pump --- Follow protocol continue basal rate Long or Intermediate acting insulin: --- Take 75% of normal dose the night before surgery (if possible), Check fasting AM glucose. If 200 or greater, take half the prescribed dose, if under 200, hold AM dose. glargine/Basaglar/Lantu s/Toujeo, detemir/Levemir, degludec/Tresiba, NPH, 70/30 Short acting insulin:---HOLD ALL ON DAY OF SURGERY aspart/Novolog, regular insulin/Humulin R, lispro/Humalog, glulisine/Apidra, Afrezza Dr. Joseph: Avoid ASA, ibuprofen, NSAids, vitamin E, fish oil for 2 weeks prior to procedure [facility] Final Surgical Pathology Rep seven 05-03-2025 Final Surgical Pathology Report . Pathology Reports Accession: Collected Date/Time: Received Date/Time: Pathologist: [id number] 04/28/2025 12:15 EDT 05/02/2025 07:58 EDT ORTEGA ECKERT MD Final Surgical Pathology Report DIAGNOSIS: ESOPHAGUS BIOPSY AT 30 CM: - JUNCTIONAL MUCOSA WITH MILD CHRONIC INFLAMMATION IN THE GASTRIC COMPONENT. NO ELIZABETH'S, NO DYSPLASIA COMMENT: [facility] [id number] CLINICAL INFORMATION: HEARTBURN SPECIMEN: A 30 CM RANDOM ESOPHAGUS GROSS DESCRIPTION: All parts labelled with patient name and [id number] Received in formalin labeled 30 cm esophagus are 3 leal-brown tissue fragments measuring 0.3 to 0.5 x 0.3 cm greatest dimension. TS-1 Andreia Bowman, Grossing Wick Tender/ Dr. Ortega Eckert, Pathologist Performed by Andreia Bowman MICROSCOPIC DESCRIPTION: The microscopic examination is performed, except in the case of Gross Only. Verified by Pathology Report verified by [facility] ORTEGA ECKERT Sign out Date: 05/03/2025 13:14 Performing Lab: [facility], [address] [place] [address] Pathology Dept Disclaimer If ancillary studies were utilized, the following Laboratory Developed Test (LDT) disclaimer will apply: Under CLIA requirements, [facility] is qualified to perform high complexity testing. For all ancillary stains, positive and negative controls stain appropriately. Performance characteristics of immunohistochemical and chromogenic in-situ hybridization tests have been determined by [facility]. These tests are used for clinical purposes, They should not be regarded as investigational or for research. Normal [facility] 1,25-dihydroxyvitamin D3 [Ma ss/Vol]on 04-25-2025 VIT D1,25 DIHYDROXY 49.9 pg/mL Normal 19.9-79.3 [facility] Comment on above: Order Comment: Speci men Type: BLOOD SPECIMEN Ordering Facility: [facility] Address: [address] [place], [place] [address] Performed By: #### 1 989-3, 1649-3 #### [facility] CLIA [id number] [address] [place] [address] 25(OH)D3 SerPl-ncon 2024 25-hydroxyvitamin D3 [Mass/Vol] 42.5 ng/mL Normal 31.0-80.0 [facility] Comment on above: Order Comment: Speci men Type: BLOOD SPECIMEN Ordering Facility: [facility] Address: [address] [place] [address] Performed By: #### 1 989-3, 1649-3 #### [facility] CLIA [id number] [address] [place] [address] [place] [facility] Comprehensive metabolic 2000 panelon 04-25-2025 Albumin [Mass/Vol] 4.2 g/dL Normal 3.9-4.9 [facility] Comment on above: Order Comment: Speci men Type: BLOOD SPECIMEN Ordering Facility: [facility] Address: [address] [place], [place] [address] Performed By: #### 2 4323-8 #### [facility] CLIA [id number] [address] [place] [place] [address] [place] ALP [Catalytic activity/Vol] 108 U/L Normal 34-123 [facility] Comment on above: Order Comment: Speci men Type: BLOOD SPECIMEN Ordering Facility: [facility] Address: [address] [place] [address] Performed By: #### 2 4323-8 #### [facility] CLIA [id number] [address] [place] [address] [place] ALT [Catalytic activity/Vol] 21 U/L Normal 7-38 [facility] Comment on above: Order Comment: Speci men Type: BLOOD SPECIMEN Ordering Facility: [facility] Address: [address] [place], [place] [address], [place] [address] Performed By: #### 2 4323-8 #### [facility] CLIA [id number] [address] [place] [address] [place] Anion gap [Moles/Vol] 12 mmol/L Normal 8-15 [facility] Comment on above: Order Comment: Speci men Type: BLOOD SPECIMEN Ordering Facility: [facility] Address: [address] [place] [address] Performed By: #### 2 4323-8 #### [facility] CLIA [id number] [address] [address] [place] AST [Catalytic activity/Vol] 23 U/L Normal 13-35 [facility] Comment on above: Order Comment: Speci men Type: BLOOD SPECIMEN Ordering Facility: [facility] Address: [address] [place] [address] Performed By: #### 2 4323-8 #### [facility] CLIA [id number] [address] [place] [address] [place] Bilirubin [Mass/Vol] 0.3 mg/dL Normal 0.2-1.3 [facility] Comment on above: Order Comment: Speci men Type: BLOOD SPECIMEN Ordering Facility: [facility] Address: [address] [place] [address] Performed By: #### 2 4323-8 #### [facility] CLIA [id number] [address] [address] [place] Calcium [Mass/Vol] 9.5 mg/dL Normal 8.5-10.2 [facility] Comment on above: Order Comment: Speci men Type: BLOOD SPECIMEN Ordering Facility: [facility] Address: [address] [place] [address] Performed By: #### 2 4323-8 #### [facility] CLIA [id number] [address] [place], [place] [id number] [place] Chloride [Moles/Vol] 104 mmol/L Normal 98-107 [facility] Comment on above: Order Comment: Speci men Type: BLOOD SPECIMEN Ordering Facility: [facility] Address: [address] [place] [address] Performed By: #### 2 4323-8 #### [facility] CLIA [id number] [address] [place] [address] [place] CO2 [Moles/Vol] 19 mmol/L Low 22-30 [facility] Comment on above: Order Comment: Speci men Type: BLOOD SPECIMEN Ordering Facility: [facility] Address: [address] [place] [address] Performed By: #### 2 4323-8 #### [facility] CLIA [id number] [address] [place] [address] [place] Creatinine [Mass/Vol] 0.66 mg/dL Normal 0.58-0.96 [facility] Comment on above: Order Comment: Speci men Type: BLOOD SPECIMEN Ordering Facility: [facility] Address: [address] [place] [address] Performed By: #### 2 4323-8 #### [facility] CLIA [id number] [address] [place] [address] [place] eGFRcr SerPlBld CKD-EPI 2020 94 mL/min/1.73m??? Normal >=60 [facility] Comment on above: Order Comment: Speci men Type: BLOOD SPECIMEN Ordering Facility: [facility] Address: [address] [place] [address] Result Comment: Noreen mated Glomerular Filtration Rate (eGFR) is calculated using the 2020 CKD-EPI creatinine equation. This equation utilizes serum creatinine, sex, and age as parameters. The creatinine assay has traceable calibration to isotope dilution-mass spectrometry. Refer to KDIGO guidelines for clinical interpretation. In patients with unstable renal function, e.g. those with acute kidney injury, the eGFR may not accurately reflect actual GFR. Performed By: #### 2 4323-8 #### [facility] CLIA [id number] [address] [place] [address] [place] Glucose [Mass/Vol] 133 mg/dL High 74-99 [facility] Comment on above: Order Comment: Speci men Type: BLOOD SPECIMEN Ordering Facility: [facility] Address: [address] [place] [address] Result Comment: The [place] Diabetes [employer] (ADA) provides guidance for cutoff values for fasting glucose and random glucose. The ADA defines fasting as no caloric intake for at least 8 hours. Fasting plasma glucose results between 100 to 125 mg/dL indicate increased risk for diabetes (prediabetes). Fasting plasma glucose results greater than or equal to 126 mg/dL meet the criteria for diagnosis of diabetes. In the absence of unequivocal hyperglycemia, results should be confirmed by repeat testing. In a patient with classic symptoms of hyperglycemia or hyperglycemic crisis, random plasma glucose results greater than or equal to 200 mg/dL meet the criteria for diagnosis of diabetes. Reference: Standards of Medical Care in Diabetes 2016, [place] [employer] Association. Diabetes Care. 2016.39(Suppl 1). Performed By: #### 2 4323-8 #### [facility] [id number] [address] [place] [address] [place] Potassium [Moles/Vol] 3.8 mmol/L Normal 3.7-5.1 [facility] Comment on above: Order Comment: Speci men Type: BLOOD SPECIMEN Ordering Facility: [facility] Address: [address] [place] [address] Performed By: #### 2 4323-8 #### [facility] [id number] [address] [place] [address] [place] Protein [Mass/Vol] 7.5 g/dL Normal 6.3-8.0 [facility] Comment on above: Order Comment: Jinai men Type: BLOOD SPECIMEN Ordering Facility: [facility] Address: [address] [place] [address] Performed By: #### 2 4323-8 #### [facility] CLIA [id number] [address] [place] [address] [place] Sodium [Moles/Vol] 135 mmol/L Low 136-144 [facility] Comment on above: Order Comment: Speci men Type: BLOOD SPECIMEN Ordering Facility: [facility] Address: [address] [place] [address] Performed By: #### 2 4323-8 #### [facility] CLIA [id number] [address] [place] [address] [place] Urea nitrogen [Mass/Vol] 30 mg/dL High 7-21 [facility] Comment on above: Order Comment: Speci men Type: BLOOD SPECIMEN Ordering Facility: [facility] Address: [address] [place] [address] Performed By: #### 2 4323-8 #### [facility] CLIA [id number] [address] [place] [address] [place] HISTORY PHYSICALon HISTORY PHYSICAL HNO ID: [id number] Author: RAISA HARRINGTON APRN.BATCH ROOM TECHNICIAN Service: ? Author Type: Nurse Practitioner Type: H&P Filed: 05/02/2025 20:12 Note Text: [facility] HISTORY AND PHYSICAL EXAMINATION SERVICE DATE: 04/25/2025 SERVICE TIME: 8:12 PM PRIMARY CARE PHYSICIAN: No primary care provider on file. Assessment Patient has the following medical conditions which may affect kalin-operative course: CAD in [place] artery Assessment: non-obstructing, c/w daily ASA, statin Heart failure with preserved ejection fraction (HCC) Assessment: controlled on rx, following cardiology in [place], records requested Hypertension Assessment: controlled on rx Last 14 BP Last 14 Encounter BP Readings: Date: BP: 04/25/2025 102/68 COPD, mild (HCC) Assessment: controlled on rx Dyspnea on exertion Assessment: multifactorial, cardiac records requested Diabetes mellitus (HCC) Assessment: controlled on oral agents, new A1c pending Dyslipidemia Assessment: c/w statin BMI 35.0-35.9,adult Assessment: Body mass index is 35.2 kg/m?. PUNEET (obstructive sleep apnea) Assessment: c/w CPAP GERD (gastroesophageal reflux disease) Assessment: otc rx as needed History of total knee arthroplasty, right Assessment: hx ANESTHESIA FINDINGS: Intubation History: No history of difficult intubation Significant Anesthesia Considerations: none Airway History: No history of difficult airway Funes Activity Status Index: METS: Walk indoors, such as around the house (1.75 METs) Do light work around the house, such as dusting or washing dishes (2.70 METs) Take care of self; that is eating, dressing, bathing, using the toilet (2.75 METs) Walk a block or two on level ground (2.75 METs) DASI Score: 9.95 (With cane) Patient denies any chest pain or undue shortness of breath with the above physical activity. Clinical Frailty Scale: 3. Well, with treated comorbid disease STOP-Bang Score: Has or is being treated for high blood pressure BMI greater than 35 kg/m2 Patient over 50 years old Has a large neck Denies snoring loudly Denies feeling tired, fatigued, or sleepy during the daytime Has not been observed to stop breathing or choking/gasping during sleep Non-male patient STOP-Bang Score: 4 [id number] Score: Age: 65-74 Sex: female CHF history: Yes Hypertension history: Yes Stroke/TIA/thromboembol ism history: No Vascular disease history: No Diabetes history: Yes [id number] Score: 5 ARISCAT Score: Age: 51-80 Preoperative SpO2: >=96% Respiratory infection in the last month: No Preoperative anemia: No Surgical incision: peripheral Duration of surgery: <2 hrs Emergency procedure: No ARISCAT Score: 3 I - PHYSICAL EVALUATION AIRWAY Patient intubated: No. Tracheostomy tube not present Mallampati: II. TM distance: >3 FB. Neck ROM: full ROM without neurological symptoms. Mouth opening: adequate. Short neck: no. Thick neck: yes Wharton present: no Lip Bite Test: I Microretrognathia/Micro nagthia/Recessed Chin: No DENTAL Dental findings: teeth intact. II - ANESTHESIA PLAN Anesthetic Plan: other Beta Sergo Monitoring Plan Post Procedure Analgesic Plan Prepared for Surgery: optimally prepared for surgery, pending [see comment]. Labs Addendum May 02, 2025 8:11 PM Labs reviewed and acceptable for proposed procedure. - DOS glucose recommended Raisa Harrington APRN.CNP (covering for Esteban Caldwell APRN.CNP) CONSULTS: Patient does not require consults for optimization at this time Planned Anesthetic: other anesthesia choice The Following Tests/Procedures Have Been Initiated: Orders Placed This Encounter HGB A1C Standing Status: Future Number of Occurrences: 1 Expected Date: 04/25/2025 Expiration Date: 07/25/2025 REASON FOR VISIT: Lynsey Doty is a 70 year old female who is scheduled for Procedure(s): REMOVE CORNEAL EPITHELIUM W/ APPLICATION OF CHELATION (Right) at the request of Luc Moran MD for consultation. My final recommendation will be communicated back to the requesting physician by way of shared medical record or letter. Subjective The patient has the following: COVID-19 Immunization Status This patient has no relevant Health Maintenance data. CHIEF COMPLAINT: Pre-op exam HPI: Lynsey Doty is a 70 year old seen for PAC due to scheduled above surgery because Band Keratopathy, right. 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 Potential etiologies include systemic calcium dysregulation due to renal or parathyroid issues, or secondary to chronic ocular inflammation and disease. - Recommended EDTA chelation procedure to dissolve calcium deposits and improve corneal clarity and vision. - Discussed procedure details, including the use of EDTA-soaked sponges to rub the cornea, potentia (more content not included)... Normal [facility] HbA1c (Bld)on 04-25-2025 Average glucose Estimated from glycated hemoglobin (Bld) [Mass/Vol] 151 mg/dL Normal [facility] Comment on above: Order Comment: Speci men Type: BLOOD SPECIMEN Ordering Facility: [facility] Address: [address] [place] [address] Result Comment: eAG: (Estimated average glucose) is a calculated value from HgbA1c and is assistance representative of the average blood glucose level in the last 2-3 month period. Performed By: #### 5 5454-3 #### [facility] CLIA [id number] [address] [place] [address] [place] [address] [place] HbA1c (Bld) [Mass fraction] 6.9 % High 4.3-5.6 [facility] Comment on above: Order Comment: Kelly ortiz Type: BLOOD SPECIMEN Ordering Facility: [facility] Address: [address] [place] [address] Result Comment: [place]t [place] Diabetes Association guidelines indicate that patients with HgbA1c in the range 5.7-6.4% are at increased risk for development of diabetes, and intervention by lifestyle modification may be beneficial. HgbA1c greater or equal to 6.5% is considered diagnostic of diabetes. Performed By: #### 5 5454-3 #### [facility] CLIA [id number] [address] [place] [address] PTH RELATED PEPTIDEon 2024 PTH RELATED PEPTIDE 3.3 pmol/L Normal 0.0-3.4 [facility] Comment on above: Order Comment: Kelly ortiz Type: BLOOD SPECIMEN Ordering Facility: [facility] Address: [address] [place] [address] Result Comment: INTE RPRETIVE INFORMATION: Parathyroid Hormone-Related Peptide This test was developed and its performance characteristics determined by [facility]. It has not been cleared or approved by the US Food and Drug Administration. This test was performed in a CLIA certified laboratory and is intended for clinical purposes. Performed By: [facility] [address] [place] [address] [employer] Laborer: Ron White MD, PhD CLIA Number: [id number] Performed By: #### P THPEP #### [facility] CLIA [id number] [address] [place] [address] CNPIman 04-20-2025 CNPN Telephone ([employer]) LYNSEY DOTY ([id number]) 1955 F Date Time Provider Department 04/20/25 ESTEBAN CALDWELL During your visit today, we recorded the following information about you: Kayy Reza LPN 04/20/2025 10:24 AM Signed Patient was scheduled for in person [facility] appt at 10am today. Patient did not check in for appt, called patient at 1015am to see if they were planning on coming. Patient states she thought her appt was next week. Patient rescheduled to Friday at 2pm per patient request. [facility] Schedulers notified. Kayy Reza LPN Allergies As of Date: 04/20/2025 (No Known Allergies) Date Reviewed: 03/30/2025 Reviewed by: Luc Bell MD - Fully Assessed Prescriptions as of 04/20/2025 - sucralfate (CARAFATE) 100 mg/mL suspension TAKE 10 ML BY MOUTH BEFORE MEAL(S) AND AT BEDTIME - rosuvastatin calcium (ROSUVASTATIN PO) 40 mg. - pramipexole (MIRAPEX) 0.125 mg tablet 0.125 mg. - pioglitazone (ACTOS) 45 mg tablet 45 mg. - losartan (COZAAR) 50 mg tablet 50 mg. - ipratropium-albuterol (DUONEB) 0.5 mg-3 mg(2.5 mg base)/3 mL nebu 3 mL. - Ibandronate 150 mg tablet Take 150 mg by mouth once every month. - glipiZIDE (GLUCOTROL XL) 10mg 24 hr tablet - furosemide (LASIX) 20 mg tablet 20 mg. - FREESTYLE DORI 2 SENSOR kit - JARDIANCE 10 mg tablet Take 10 mg by mouth every morning. - cyanocobalamin (VITAMIN B-12) 1,000 mcg tab Take 1 tablet by mouth once daily. - carvedilol (COREG) 3.125 mg tablet Take 1 tablet by mouth every 12 hours. - aspirin, enteric coated (ASPIRIN, ENTERIC COATED) 81 mg EC tablet 81 mg. Problem List As Of Date 04/20/2025 Noted Resolved COPD, mild (HCC) [J44.9] 03/30/2025 Diabetes mellitus (HCC) [E11.9] 03/30/2025 Dyslipidemia [E78.5] 03/30/2025 Dyspnea on exertion [R06.09] 03/30/2025 CAD in guid[place] artery [I25.10] 03/30/2025 Family history of malignant neoplasm of breast *03/30/2025 Family history of malignant neoplasm of ovary [*03/30/2025 Heart failure with preserved ejection fraction *03/30/2025 Hypertension [I10] 03/30/2025 Mass of breast [N63.0] 03/30/2025 Encounter Status:Closed by KAYY REZA on 04/20/25 Normal [facility] URINE MICROALBUMIN W/CREATIN INE, RANDOMon 01-18-2025 CREATININE UR 28.67 mg/dl Normal [facility] Comment on above: Performed By: #### 2 [id number] #### [facility],[address] [place] [address] MICROALBUMIN UR 1.6 mg/dL Normal 0.1 - 11.6 [facility] Comment on above: Performed By: #### 2 [id number] #### [facility],[address] [place] [address] UACR 56 mg/g Normal [facility] Comment on above: Performed By: #### 2 [address]5416 #### [place] [address] HEMOGLOBIN A1C (POM)on 01-17 Glucose [Mass/Vol] 151.3 mg/dL High 0.0 - 0.0 [facility] Comment on above: Result Comment: BLDo HEMOGLOBIN A1C REFERENCE RANGESBLDo Suggested Diagnosis HbA1c(%) HbA1C (mmol/mol Diabetic >/=6.5 >/=48 Prediabetes 5.7 - 6.4 39 - 47 Normal <5.7 <39 Performed By: #### 2 07761 #### [place] [address] HbA1c (Bld) [Mass fraction] 6.9 % High 0.0 - 6.5 [facility] Comment on above: Performed By: #### 2 [id number] #### [place] [address] L/S Spine Min 4 Viewson 11-20 L/S Spine Min 4 Views [facility] [address] [place], [place] [address] L/S Spine Min 4 Views MR#: [id number] Acct: [id number] Name: LYNSEY DOTY Rep #: [id number] : 1955 F 69 From: Carl Gutiérrez MD PCP: Dr. Abdirahman Frias MD Status: DEP AMB Study: L/S Spine Min 4 Views Date of Exam: 12/03/24 Exam# [id number] Ordering Dr: Emerson Castro EXAM: XR Lumbosacral Spine, 4 or 5 Views CLINICAL INDICATION: CHRONIC PAIN TECHNIQUE: Frontal, lateral and bilateral oblique views of the lumbar spine. COMPARISON: No relevant prior studies available. FINDINGS: VERTEBRAE: Degenerative facet arthropathy throughout the lumbar spine, most prominent in the lower lumbar spine. Normal alignment. No acute fracture. SACRUM/COCCYX: Unremarkable as visualized. No acute fracture. DISC SPACES: Degenerative disc disease throughout the lumbar spine. SOFT TISSUES: Unremarkable. RAD/L/S Spine Min 4 Views IMPRESSION: 1. No acute fracture. No significant dynamic instability. 2. Degenerative changes lumbar spine as described. Reading [facility] CC: BALBINA Ventura; Dr. 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: Signed Normal [facility] Orthopedic Visit Reporton Orthopedic Visit Report [facility] [address] [place] [address] [place], [place] [id number] OFFICE VISIT Date of Service: 12/03/24 MR#: [id number] Acct: [id number] Name: LYNSEY DOTY Rep #: [id number] : 1955 Provider: BALBINA Ventura Age/Sex: 69/F Location[facility] Status: Signed Intake Vital Signs 10/28/24 09:21 12/03/24 13:16 Height 4 ft 8 in 4 ft 8 in Weight: 163 lb 6 oz BMI 36.6 BP 119/64 Blood Pressure Location Rt brachial Position Sitting Respiration 18 Pulse 64 Pulse Source Monitor Temp 97.4 F L Temp Source Temporal Pulse Oximetry (%) 97 Oxygen Delivery Method room air Intake Visit Reasons: LUMBAR SPINE Chief Complaint: Lumbar spine pain Accompanied by: Self Is patient in pain?: Yes Pain scale (1-10): 2 Allergies No Known Allergies Allergy (Verified 12/03/24 13:17) Medications ???Medication ???Instructions ???Recorded ???Confirmed ???Type calcium 600 mg (as carbonate)-vit 1 tab PO DAILY 08/22/23 12/03/24 History D3 1,000 unit-vitamin K2 90 mcg tab carvedilol 6.25 mg tablet 3.125 mg PO BID 08/22/23 12/03/24 History cholecalciferol (vitamin D3) 125 125 mcg PO DAILY 08/22/23 12/03/24 History mcg (5,000 unit) capsule cyanocobalamin (vitamin B-12) 1,000 mcg PO DAILY 08/22/23 History 1,000 mcg capsule fluticasone 500 mcg-salmeterol 50 1 inh inhalation BID 08/22/23 History mcg/dose blistr powdr for inhalation (Wixela Inhub) furosemide 20 mg tablet 20 mg PO DAILY 08/22/23 12/03/24 H istory glipizide 10 mg tablet 20 mg PO DAILY 08/22/23 12/03/24 H istory ibandronate 150 mg tablet 150 mg PO QMONTH 08/22/23 12/03/24 History ipratropium 0.5 mg-albuterol 3 mg 3 ml inhalation Q6H PRN sob 08/2212/03/24 History (2.5 mg base)/3 mL nebulization soln losartan 50 mg tablet 50 mg PO DAILY 08/22/23 12/03/24 H istory magnesium oxide 400 mg PO TID 08/22/23 12/03/24 Hi story multivitamin (One Daily 1 tab PO DAILY 08/22/23 12/03/24 H istory Multivitamin tablet) omeprazole 40 mg capsule,delayed 40 mg PO DAILY 08/22/23 12/03/24 H istory release pioglitazone 15 mg tablet 15 mg PO DAILY 08/22/23 12/03/24 H istory pramipexole 0.125 mg tablet 0.125 mg PO DAILY 08/22/23 5 History rosuvastatin 40 mg tablet 40 mg PO DAILY 08/22/23 12/03/24 H istory Have you fallen in the past year?: Yes PFSH Medical History Umbilical discharge Sleep apnea COPD (chronic obstructive pulmonary disease) GERD (gastroesophageal reflux disease) Hypertension Arthritis Diabetes Umbilical abnormality Surgical History History of total left knee replacement History of laparoscopic cholecystectomy History of hysterectomy Family History Mother Colon cancer Hypertension Father Hypertension Social History Smoking Status: Never smoker alcohol intake: current alcohol intake frequency: a few times a month substance use type: does not use HPI LUMBAR SPINE Details: This documentation accurately reflects the service provided and the decisions made by me, BALBINA Ventura 12/03/24 1316. Part of today???s visit was documented by Guerrero Thomas MA, acting as scribe. LYNSEY DOTY is a 69 year old F here today for lumbar spine pain. Says that her pain has been going on for the last 2-3 years and worsening over the last year. She saw Dr. Kohli last year who did an MRI at that time. This pain gets worse at times depending on what she does. Says that her walking distance has decreased due to the pain in her back she says that some days she can only walk several feet before her pain increases while other days she can walk about 50 feet before she has pain. She denies any pain that radiates down her legs with walking all of her pain is in her low back towards the right side. She can't stand up straight for long periods of time. Has been walking everyday. Denies any physical therapy. The pain is in the lower back. It feels sore all the times. The pain is sharp. Has been having trouble with balance. She uses a cane for support. Patient uses ice and heat which has been helping. Sometimes she has pain when walking down the hallway. Hx of hysterectomy. She has done PT in the past over a year ago. Hx of diabetes last a1c was 6.9, hx of COPD does not wear oxygen, takes carvedilol for bradycardia, says she had a bone density scan last year and says it was normal. She does take ibandronate for her bone density which she says in the past has been low. Her last bone density scan was done at [facility] (more content not included)... Normal [facility] Surgery Visit Reporton 10-28 Surgery Visit Report [facility] [address] [place] [address] OFFICE VISIT Date of Service: 10/28/24 MR#: [id number] Acct: [id number] Name: LYNSEY DOTY Rep #: [id number] : 1955 Provider: Dr. Diego vargas MD Age/Sex: 69/F Location: [facility] Status: Signed Intake Vital Signs 10/21/24 10:40 10/28/24 09:21 Height 4 ft 8 in 4 ft 8 in Weight: 160 lb 163 lb 6 oz BMI 35.9 36.6 BP 142/64 H 119/64 Blood Pressure Location Rt brachial Position Sitting Sitting Respiration 18 18 Pulse 67 64 Pulse Source Monitor Temp 97.2 F L 97.4 F L Temp Source Temporal Temporal Pulse Oximetry (%) 97 Oxygen Delivery Method room air Intake Visit Reasons: UMBILICAL DRAINAGE Chief Complaint: umbilical drainage Is patient in pain?: No Allergies No Known Allergies Allergy (Verified 10/28/24 09:21) Medications ???Medication ???Instructions ???Recorded ???Confirmed ???Type calcium 600 mg (as carbonate)-vit 1 tab PO DAILY 08/22/23 10/28/24 History D3 1,000 unit-vitamin K2 90 mcg tab carvedilol 6.25 mg tablet 3.125 mg PO BID 08/22/23 10/28/24 History cholecalciferol (vitamin D3) 125 125 mcg PO DAILY 08/22/23 10/28/24 History mcg (5,000 unit) capsule cyanocobalamin (vitamin B-12) 1,000 mcg PO DAILY 08/22/23 History 1,000 mcg capsule fluticasone 500 mcg-salmeterol 50 1 inh inhalation BID 08/22/2303/16 History mcg/dose blistr powdr for inhalation (Wixela Inhub) furosemide 20 mg tablet 20 mg PO DAILY 08/22/23 10/28/24 H istory glipizide 10 mg tablet 20 mg PO DAILY 08/22/23 10/28/24 H istory ibandronate 150 mg tablet 150 mg PO QMONTH 08/22/23 10/28/24 History ipratropium 0.5 mg-albuterol 3 mg 3 ml inhalation Q6H PRN sob 08/2210/28/24 History (2.5 mg base)/3 mL nebulization soln losartan 50 mg tablet 50 mg PO DAILY 08/22/23 10/28/24 H istory magnesium oxide 400 mg PO TID 08/22/23 10/28/24 Hi story multivitamin (One Daily 1 tab PO DAILY 08/22/23 10/28/24 H istory Multivitamin tablet) omeprazole 40 mg capsule,delayed 40 mg PO DAILY 08/22/23 10/28/24 H istory release pioglitazone 15 mg tablet 15 mg PO DAILY 08/22/23 10/28/24 H istory pramipexole 0.125 mg tablet 0.125 mg PO DAILY 08/22/23 5 History rosuvastatin 40 mg tablet 40 mg PO DAILY 08/22/23 10/28/24 H istory Have you fallen in the past year?: No PFSH Medical History Umbilical discharge Sleep apnea COPD (chronic obstructive pulmonary disease) GERD (gastroesophageal reflux disease) Hypertension Arthritis Diabetes Umbilical abnormality Surgical History History of total left knee replacement History of laparoscopic cholecystectomy History of hysterectomy Family History Mother Colon cancer Hypertension Father Hypertension Social History Smoking Status: Never smoker alcohol intake: current alcohol intake frequency: a few times a month substance use type: does not use HPI HPI HPI: The patient is a 69-year-old female who is being seen today for umbilical drainage. It sounds as though this occurs weekly. She states that this has been going on for couple of years now. She states that the fluid is typically clear in color but sometimes can be blood-tinged. She denies any previous surgery at the umbilicus. No recent redness to suggest infection or abscess. She presents today for evaluation. It was noted on a previous CT scan of the abdomen that she does have a small fat-containing hernia. This does not seem to be symptomatic ROS General General: Yes fatigue; No weight change, appetite, colon cancer, breast cancer or weakness HEENT HEENT: No difficulty swallowing, eye injury, eye surgery, swollen glands or hoarseness Endo Endocrine: Yes diabetes mellitus; No thyroid disease, thyroid cancer, Hair loss, heat intolerance or cold intolerance Skin Skin: No rash or changing moles Musc Musculoskeletal: Yes arthritis; No back problems, rheumatoid arthritis, gout or joint pain Cardio Cardiovascular: Yes heart disease and high blood pressure; No murmur, pacemaker, atrial fibrillation, heart attack, heart stent, palpitations, shortness of breat with exertion or chest pain Psych Psychiatric: No depression, anxiety or hearing voices Resp Respiratory: Yes shortness of breath, Yes sleep apnea, No cough, Yes COPD, No asthma, No emphysema and No wheezing Gastro Gastrointestinal: No abdominal pain, No nausea or vomiting, No diarrhea, No constipation, No blood in stool, Yes acid reflux, No hemorr (more content not included)... Normal [facility] History AND Physic dee 10-21-2024 Wound Ctr History & Physical [facility] [address] [place] [address] H P Exam - Wound Care 10/21/24 1252 MR#: [id number] Acct: [id number] Name: LYNSEY DOYT Rep #: [id number] : 1955 69 From: Tiana Gonzales MD PCP: Dr. Abdirahman Frias MD Status:DIS RCR Location: History of Present Illness Date of Service: 10/21/24 Chief Complaint: Drainage from umbilicus History of Wound: This Soren is a 69-year-old who was referred to the wound center by PCP due to chronic drainage from her umbilicus. She states that this has been ongoing for over 2 years. No pain. No recent abdominal surgery, history of cholecystectomy and hysterectomy years ago. Was seen by general surgery a few years ago however imaging did not show any significant concerns. She states that she has been packing the area daily. There has been no recent worsening, she was referred here due to ongoing drainage. She feels well otherwise. History of diabetes mellitus type 2 her last A1c was at 6.9. [facility] Medical History (Updated 10/21/24 @ 13:[address] Tiana Gonzales MD) Umbilical discharge Sleep apnea COPD (chronic obstructive pulmonary disease) GERD (gastroesophageal reflux disease) Hypertension Arthritis Diabetes Umbilical abnormality Home Medications ???Medication ???Instructions ???Recorded ???Last Taken ???Type calcium 600 mg (as carbonate)-vit 1 tab PO DAILY 08/22/23 Unknown H istory D3 1,000 unit-vitamin K2 90 mcg tab carvedilol 6.25 mg tablet 3.125 mg PO BID 08/22/23 Unknown H istory cholecalciferol (vitamin D3) 125 125 mcg PO DAILY 08/22/23 Unknown History mcg (5,000 unit) capsule cyanocobalamin (vitamin B-12) 1,000 mcg PO DAILY 08/22/23 Unknow n History 1,000 mcg capsule fluticasone 500 mcg-salmeterol 50 1 inh inhalation BID 08/22/23 Unk nown History mcg/dose blistr powdr for inhalation (Wixela Inhub) furosemide 20 mg tablet 20 mg PO DAILY 08/22/23 Unknown Hi story glipizide 10 mg tablet 20 mg PO DAILY 08/22/23 Unknown Hi story ibandronate 150 mg tablet 150 mg PO QMONTH 08/22/23 Unknown History ipratropium 0.5 mg-albuterol 3 mg 3 ml inhalation Q6H PRN sob 08/22 Unknown History (2.5 mg base)/3 mL nebulization soln losartan 50 mg tablet 50 mg PO DAILY 08/22/23 Unknown Hi story magnesium oxide 400 mg PO TID 08/22/23 Unknown His tory multivitamin (One Daily 1 tab PO DAILY 12/01/23 Unknown Hi story Multivitamin tablet) omeprazole 40 mg capsule,delayed 40 mg PO DAILY 08/22/23 Unknown Hi story release pioglitazone 15 mg tablet 15 mg PO DAILY 08/22/23 Unknown Hi story pramipexole 0.125 mg tablet 0.125 mg PO DAILY 08/22/23 Unknown History rosuvastatin 40 mg tablet 40 mg PO DAILY 08/22/23 Unknown Hi story Allergy/AdvReac Type Severity Reaction Status Date / Time No Known Allergies Allergy Verified 10/21/24 10:34 Family History Mother Colon cancer Hypertension Father Hypertension Surgical History History of total left knee replacement History of laparoscopic cholecystectomy History of hysterectomy Social History Smoking Status: Never smoker alcohol intake: current alcohol intake frequency: a few times a month substance use type: does not use ROS Constitutional Constitutional: Denies anorexia, body ache(s), change in weight, chills, daytime sleepiness, fatigue, frequent falls, headache(s), poor appetite or snoring Eyes Eyes: Denies blind spots, bloody eye, change in vision, discharge from eye(s), discongugate gaze, double vision, erythema or itchy eyes ENT HEENT: Denies ear pain, epistaxis, facial pain, foreign body in nose, halitosis, headache(s), hearing loss or mouth pain Cardiovascular Cardiovascular: Denies abdominal pain, bluish discoloration of hand/feet, chest pain, chest pain at rest, claudication, cold extremities, cyanosis or erythema on extremities Respiratory/Chest Respiratory/Chest: Denies chest congestion, difficulty clearing secretions, dusky skin, dyspnea, excessive phlegm production or hemoptysis Gastrointestinal Gastrointestinal: Denies abdominal pain, change in bowel habits, chewing difficulty, coffee ground emesis, constipation or fecal incontinence Genitourinary Genitourinary: Denies abdominal discomfort, anuria or flank pain Musculoskeletal Musculoskeletal: Reports joint stiffness; Denies atrophy, difficulty walking, muscle weakness, tingling or tremors Integumentary Integumentary: Denies bleeding lesions, changing lesions, erythema, hirsutism, jaundice or skin swelling Neurologic Neurologic: Denies abnormal movements, behavior changes, burning sensations, confusion, disequilibrium, focal weakness, frequent fal (more content not included)... Normal [facility] CBC + DIFFon 10-04-2024 Baso # 0.01 x10EE3/UL Normal 0.00 - 0.10 [facility] Comment on above: Performed By: #### 2 62492 #### [facility],[address] [place] [address] 03430 Basophils/100 WBC (Bld) 0.2 % Normal 0.0 - 2.0 [facility] Comment on above: Performed By: #### 2 22228 #### [facility],[address] [place] [address] 01257 CBC + DIFF Normal [facility] Comment on above: Result Comment: CBC- COMPLETE BLOOD COUNT Performed By: #### 2 70304 #### [facility],[address] [place] [address] 27051 EO # 0.10 x10EE3/UL Normal 0.00 - 0.50 [facility] Comment on above: Performed By: #### 2 46797 #### [facility],[address] [place] [address] 47627 Eosinophils/100 WBC (Bld) 1.9 % Normal 0.0 - 7.0 [facility] Comment on above: Performed By: #### 2 52756 #### [facility],[address] [place] [address] 12538 Erythrocyte distribution width (RBC) [Ratio] 14.3 % Normal 12.0 - 15.6 [facility] Comment on above: Performed By: #### 2 04667 #### [facility],[address] [place] [address] 03889 Hematocrit (Bld) [Volume fraction] 37.8 % Normal 34.0 - 46.0 [facility] Comment on above: Performed By: #### 2 65242 #### [facility],[address] [place] [address] 44084 Hemoglobin (Bld) [Mass/Vol] 12.7 g/dL Normal 12.0 - 16.0 [facility] Comment on above: Performed By: #### 2 33505 #### [facility],[address] [place] [address] Lymph # 2.23 x10EE3/UL Normal 0.80 - 2.80 [facility] Comment on above: Performed By: #### 2 34476 #### [facility],[address] [place] [address] Lymphocytes/100 WBC (Bld) 43.4 % Normal 20.0 - 45.0 [facility] Comment on above: Performed By: #### 2 29585 #### [facility],[address] [place] [address] MANUAL DIFF N/A Normal [facility] Comment on above: Performed By: #### 2 99523 #### [facility],[address] [place] [address] MCH (RBC) [Entitic mass] 30 pg Normal 27 - 33 [facility] Comment on above: Performed By: #### 2 19985 #### [facility],[address] [place] [address] MCHC 34 X10 3 Normal 32 - 36 [facility] Comment on above: Performed By: #### 2 04577 #### [facility],[address] [place] [address] MCV (RBC) [Entitic vol] 88 fL Normal 80 - 99 [facility] Comment on above: Performed By: #### 2 25314 #### [facility],[address] [place] [address] [place] # 0.39 x10EE3/UL Normal 0.20 - 1.00 [facility] Comment on above: Performed By: #### 2 53982 #### [facility],[address] [place] [address] MONOS % 7.6 % Normal 0.0 - 10.0 [facility] Comment on above: Performed By: #### 2 41903 #### [facility],[address] [place] [address] 15653 Morphology Neto (Bld) [Interp] N/A Normal [facility] Comment on above: Performed By: #### 2 85297 #### [facility],[address] [place] [address] 64972 Neut # 2.41 x10EE3/UL Normal 1.50 - 7.10 [facility] Comment on above: Performed By: #### 2 48345 #### [facility],[address] [place] [address] 11079 Neutrophils/100 WBC (Bld) 46.9 % Normal 46.0 - 76.0 [facility] Comment on above: Performed By: #### 2 24754 #### [address] [address] PLATELET 222 x10EE3/UL Normal 150 - 450 [facility] Comment on above: Performed By: #### 2 68424 #### [facility],[address] [place] [address] 47433 Platelet mean volume (Bld) [Entitic vol] 6.8 fL Normal 6.6 - 10.5 [facility] Comment on above: Result Comment: AUTO MATED DIFFERENTIAL Performed By: #### 2 51514 #### [facility],[address] [place] [address] 17898 RBC 4.30 x 10EE6/UL Normal 4.10 - 5.30 [facility] Comment on above: Performed By: #### 2 88608 #### [facility],[address] [place] [address] 24077 WBC 5.1 x 10EE3/UL Normal 4.5 - 10.8 [facility] Comment on above: Performed By: #### 2 25363 #### [facility],[address] [place] [address] 11197 CMP with eGFRon 10-04-2024 AGE 69 years Normal [facility] Comment on above: Performed By: #### 2 08531 #### [facility],[address] [place] [address] 77713 Albumin [Mass/Vol] 3.9 g/dL Normal 3.4 - 5.0 [facility] Comment on above: Performed By: #### 2 96570 #### [facility],[address] [place] [address] 98376 Albumin/Globulin [Mass ratio] 1.1 {ratio} Normal 0.9 - 1.6 [facility] Comment on above: Performed By: #### 2 40531 #### [facility],[address] [place] [address] 36322 ALK PHOS 96 U/L Normal 46 - 116 [facility] Comment on above: Performed By: #### 2 24188 #### [facility],[address] [place] [address] 73057 ALT [Catalytic activity/Vol] 33 U/L Normal 16 - 63 [facility] Comment on above: Performed By: #### 2 29730 #### [facility],[address] [place] [address] 83868 Anion gap [Moles/Vol] 14 mmol/L Normal 10 - 20 [facility] Comment on above: Performed By: #### 2 62268 #### [facility],[address] [place] [address] 41591 AST [Catalytic activity/Vol] 21 U/L Normal 13 - 39 [facility] Comment on above: Performed By: #### 2 55997 #### [address] [address] B/C RATIO 33 ratio High 0 - 30 [facility] Comment on above: Performed By: #### 2 74057 #### [facility],[address] [place] [address] 82600 Bilirubin [Mass/Vol] 0.3 mg/dL Normal 0.2 - 1.0 [facility] Comment on above: Performed By: #### 2 52660 #### [place] [address] Calcium [Mass/Vol] 9.0 mg/dL Normal 8.5 - 10.1 [facility] Comment on above: Performed By: #### 2 57041 #### [facility],[address] [place] [address] Chloride [Moles/Vol] 106 mmol/L Normal 98 - 107 [facility] Comment on above: Performed By: #### 2 48649 #### [facility],[address] [place] [address] CMP with eGFR Normal [facility] Comment on above: Result Comment: COMP REHENSIVE METABOLIC PANEL Performed By: #### 2 39062 #### [place] [address] CO2 [Moles/Vol] 26.6 mmol/L Normal 21.0 - 32.0 [facility] Comment on above: Performed By: #### 2 13516 #### [facility],[address] [place] [address] Creatinine [Mass/Vol] 0.70 mg/dL Normal 0.55 - 1.02 [facility] Comment on above: Performed By: #### 2 55279 #### [facility],[address] [place] [address] GFR/1.73 sq M.predicted among non-blacks MDRD (S/P/Bld) [Vol rate/Area] mL/min/{1.73_m2} Normal 60 - 999 [facility] Comment on above: Performed By: #### 2 93116 #### [facility],[address] [place] [address] Result Comment: ACCO RDING TO THE NATIONAL KIDNEY DISEASE EDUCATION PROGRAM(NKDE), A NORMAL eGFR IS A VALUE GREATER THAN OR EQUAL TO 60 ML/MIN/1.73 SQ METERS. CHRONIC KIDNEY DISEASE: <60mL/MIN/1.73 SQ METERS KIDNEY FAILURE: <15mL/MIN/1.73 SQ METERS THIS TEST SHOULD ONLY BE USED FOR PATIENTS 18 YEARS OF AGE AND OLDER. Globulin (S) [Mass/Vol] 3.6 g/dL Normal 1.5 - 3.8 [facility] Comment on above: Performed By: #### 2 48306 #### [facility],[address] [place] [address] 75583 Glucose [Mass/Vol] 115 mg/dL High 74 - 106 [facility] Comment on above: Performed By: #### 2 97239 #### [address] [address] Potassium [Moles/Vol] 4.2 mmol/L Normal 3.5 - 5.1 [facility] Comment on above: Performed By: #### 2 16879 #### [facility],[address] [place] [address] 77299 Protein [Mass/Vol] 7.5 g/dL Normal 6.4 - 8.2 [facility] Comment on above: Performed By: #### 2 70380 #### [address] [address] Sodium [Moles/Vol] 142 mmol/L Normal 136 - 145 [facility] Comment on above: Performed By: #### 2 67803 #### [facility],[address] [place] [address] 15311 Urea nitrogen [Mass/Vol] 23 mg/dL High 7 - 18 [facility] Comment on above: Performed By: #### 2 21338 #### [address] [address] FERRITINon 10-04-2024 Ferritin [Mass/Vol] 115 ng/mL Normal 8 - 388 [facility] Comment on above: Performed By: #### 2 88334 #### [place] [address],[place] [address] FOLATESon 10-04-2024 FOLATES 35.2 ng/ml Normal 8.6 - 58.9 [facility] Comment on above: Performed By: #### 2 33898 #### [facility],[address] [place] [address] 94117 IRON AND TIBCon 10-04-2024 %SATURATION 16 % Normal [facility] Comment on above: Performed By: #### 2 83836 #### [facility],[address] [place] [address] 91006 Iron [Mass/Vol] 56 ug/dL Normal 50 - 170 [facility] Comment on above: Performed By: #### 2 64731 #### [facility],[address] [place] [address] 31980 TIBC 342 ug/dl Normal 250 - 450 [facility] Comment on above: Performed By: #### 2 88882 #### [facility],[address] [place] [address] 76301 UIBC 286 ug/dL Normal 155 - 355 [facility] Comment on above: Performed By: #### 2 06798 #### [facility],[address] [place] [address] 47409 LIPID PROFILEon 10-04-2024 Cholesterol [Mass/Vol] 155 mg/dL Normal 0 - 240 [facility] Comment on above: Performed By: #### 2 59985 #### [facility],[address] [place] [address] 21711 Cholesterol in HDL [Mass/Vol] 78 mg/dL High 40 - 60 [facility] Comment on above: Performed By: #### 2 70405 #### [facility],[address] [place] [address] 06554 Cholesterol in LDL [Mass/Vol] 67 mg/dL Normal 0 - 129 [facility] Comment on above: Performed By: #### 2 14237 #### [facility],[address] [place] [address] 88145 Cholesterol.total/Chol esterol in HDL [Mass ratio] 2.0 {ratio} Normal 0.0 - 5.0 [facility] Comment on above: Performed By: #### 2 78931 #### [facility],[address] [place] [address] 37842 Lipid 1996 panel Normal [facility] Comment on above: Result Comment: LIPI D PROFILE Performed By: #### 2 11429 #### [facility],[address] [place] [address] 49151 Triglyceride [Mass/Vol] 51 mg/dL Normal 0 - 150 [facility] Comment on above: Performed By: #### 2 97832 #### [facility],[address] [place] [address] 86749 NT-proBNPon 10-04-2024 Natriuretic peptide B (Bld) [Mass/Vol] 116 pg/mL Normal 0 - 125 [facility] Comment on above: Performed By: #### 2 06669 #### [facility],[address] [place] [address] 37206 TSHon 10-04-2024 TSH Qn 2.76 m[IU]/L Normal 0.35 - 3.74 [facility] Comment on above: Performed By: #### 2 22735 #### [facility],[address] [place] [address] 09458 VITAMIN B-12on 10-04-2024 Cobalamin (Vitamin B12) [Mass/Vol] 2436 pg/mL High 193 - 986 [facility] Comment on above: Performed By: #### 2 70347 #### [facility],[address] [place] [address] 14738 VITAMIN D, 25 HYDROXYon 09-22 VitD 57.90 ng/mL Normal 30.00 - 100 [facility] Comment on above: Result Comment: 25-O HD3 indicates both endogenous production and supplementation. 25-OHD2 is an indicator of exogenous sources, such as diet or supplementation. Therapy is based on measurement of Total 25-OHD, with levels <20 ng/mL indicative of Vitamin D deficiency, while levels between 20 ng/mL and 30 ng/mL suggest insufficiency. Optimal levels are >=30ng/mL. Vitamin D, 25-OH D3 Not Established Vitamin D, 25-OH D2 Not Established Performed By: #### 2 97927 #### [facility],[address] [place] [address] 9[address] MA MAMMOGRAM SCREENING BILAT ERAL W/TOMOon 08-26-2024 MA MAMMOGRAM SCREENING BILATERAL W/CAYDEN ORIGINAL FROM: [address] [address] PROCEDURE FOR: LYNSEY DOTY [facility] [address] [address] Home: PID#: [id number] Exam#: [id number] : 1955 Age: 69 TO: LETY CHENG APRN [place] [address] Fax: NO FAX EXAMINATION: SCREENING DIGITAL BILATERAL MAMMOGRAM WITH TOMOSYNTHESIS, 08/16/2024 2:09 pm TECHNIQUE: Screening mammography of the bilateral breasts was performed with tomosynthesis. 2D standard and 3D tomosynthesis combination imaging performed through both breasts in the MLO and CC projection. Computer aided detection was utilized in the interpretation of this exam. COMPARISON: 01/21/2024, 06/05/2023, 02/19/2022 HISTORY: Breast cancer screening. FINDINGS: BREAST DENSITY: The breasts are heterogeneously dense, which may obscure small masses. There are benign appearing unchanged calcifications in both breasts. There are no significant masses or calcifications. IMPRESSION: No mammographic evidence of malignancy. Continued screening with annual mammograms is recommended. Heydi John risk calculations, generated with the history provided, report this patient's 10 year risk and lifetime risk for developing breast cancer at 6.3% and 9.9%, respectively. Based on this assessment tool, if the patient's calculated lifetime risk is below 20%, then the patient is considered at average risk for developing breast cancer. If the patient's calculated lifetime risk is at or above 20%, then the patient is considered high risk for developing breast cancer and may be a candidate for supplemental breast MRI screening in addition to annual mammographic screening per the [employer]. BIRADS: BI-RADS: 2: Benign RECALL: 1 year screening RECALL TYPE: mammo LETTER SENT: Normal BI-RADS 1 and 2 Interpreted by: Mehdi Swan MD Preliminary Report By: Mehdi Swan MD Electronically signed By Mehdi Swan MD Dictated Date: 08/26/2024 9:11:26 AM Prelim Date: 08/26/2024 9:14:34 AM Sign Date: 08/26/2024 9:14:34 AM Ordering Provider: LETY CHENG Camp Counselor: CYDNEY KING(R)(M) letter sent: Normal BI-RADS 1 and 2 Mammogram BI-RADS: 2 Benign Normal [facility] .Auto Diffon 03-18-2024 Basophil, Absolute 0.1 10 3/mcL Normal 0.0-0.3 [facility] ([place]) Comment on above: Performed By: #### A DIFF, CBC, GFR, CMP, PRO, ANEU #### [address] [address] Basophils/100 WBC (Bld) 1.2 % Normal 0.0-2.5 [facility] ([place]) Comment on above: Performed By: #### A DIFF, CBC, GFR, CMP, PRO, ANEU #### [address] [address] Eosinophil, Absolute 0.1 10 3/mcL Normal 0.0-0.7 [facility] ([place]) Comment on above: Performed By: #### A DIFF, CBC, GFR, CMP, PRO, ANEU #### [address] [address] Eosinophils/100 WBC (Bld) 2.8 % Normal 0.0-6.0 [facility] ([place]) Comment on above: Performed By: #### A DIFF, CBC, GFR, CMP, PRO, ANEU #### [address] [address] Lymphocyte, Absolute 2.1 10 3/mcL Normal 0.9-4.3 [facility] ([place]) Comment on above: Performed By: #### A DIFF, CBC, GFR, CMP, PRO, ANEU #### [address] [address] Lymphocytes/100 WBC (Bld) 38.0 % Normal 20.0-40.0 [facility] ([place]) Comment on above: Performed By: #### A DIFF, CBC, GFR, CMP, PRO, ANEU #### [address] [address] Monocyte, Absolute 0.5 10 3/mcL Normal 0.1-1.4 [facility] ([place] Comment on above: Performed By: #### A DIFF, CBC, GFR, CMP, PRO, ANEU #### [address] [address] Monocytes/100 WBC (Bld) 9.4 % Normal 2.0-13.0 [facility] ([place]) Comment on above: Performed By: #### A DIFF, CBC, GFR, CMP, PRO, ANEU #### [address] [address] Neutrophils/100 WBC (Bld) 48.6 % Low 50.0-75.0 [facility] ([place]) Comment on above: Performed By: #### A DIFF, CBC, GFR, CMP, PRO, ANEU #### [address] [address] .GFRon 03-18-2024 GFR >60 Normal [facility] ([place] Comment on above: Result Comment: GFR Population mean for , Non- Americans Ages 20-29 = 116 mL/min/1.73 sq.m. Ages 30-39 = 107 mL/min/1.73 sq.m. Ages 40-49 = 99 mL/min/1.73 sq.m. Ages 50-59 = 93 mL/min/1.73 sq.m. Ages 60-69 = 85 mL/min/1.73 sq.m. Ages 70+ = 75 mL/min/1.73 sq.m. Chronic Kidney Disease: Less than 60 mL/min/1.73 square meters End Stage Renal Disease: Less than 15 mL/min/1.73 square meters Performed By: #### A DIFF, CBC, GFR, CMP, PRO, ANEU #### [address] [address] GFR Non- >60 Normal [facility] ([place]) Comment on above: Result Comment: GFR Population mean for , Non- Americans Ages 20-29 = 116 mL/min/1.73 sq.m. Ages 30-39 = 107 mL/min/1.73 sq.m. Ages 40-49 = 99 mL/min/1.73 sq.m. Ages 50-59 = 93 mL/min/1.73 sq.m. Ages 60-69 = 85 mL/min/1.73 sq.m. Ages 70+ = 75 mL/min/1.73 sq.m. Chronic Kidney Disease: Less than 60 mL/min/1.73 square meters End Stage Renal Disease: Less than 15 mL/min/1.73 square meters Performed By: #### A DIFF, CBC, GFR, CMP, PRO, ANEU #### [address] [address] .NEUABSon 03-18-2024 Neutrophil, Absolute 2.6 10 3/mcL Normal 2.3-8.1 [facility] ([place]) Comment on above: Performed By: #### A DIFF, CBC, GFR, CMP, PRO, ANEU #### [address] [address] CBCon 03-18-2024 Erythrocyte distribution width (RBC) [Ratio] 13.6 % Normal 11.5-15.5 [facility] ([place]) Comment on above: Performed By: #### A DIFF, CBC, GFR, CMP, PRO, ANEU #### [place] [address] Hematocrit (Bld) [Volume fraction] 32.2 % Low 34.0-46.0 [facility] ([place]) Comment on above: Performed By: #### A DIFF, CBC, GFR, CMP, PRO, ANEU #### [address] [address] Hgb 11.0 G/dL Low 12.0-16.0 [facility] ([place]) Comment on above: Performed By: #### A DIFF, CBC, GFR, CMP, PRO, ANEU #### [place] [address] MCH (RBC) [Entitic mass] 29.6 pg Normal 27.0-33.0 [facility] ([place]) Comment on above: Performed By: #### A DIFF, CBC, GFR, CMP, PRO, ANEU #### [place] [address] MCHC 34.2 G/dL Normal 32.0-36.0 [facility] ([place]) Comment on above: Performed By: #### A DIFF, CBC, GFR, CMP, PRO, ANEU #### [place] [address] MCV (RBC) [Entitic vol] 86.5 fL Normal 80.0-99.0 [facility] ([place]) Comment on above: Performed By: #### A DIFF, CBC, GFR, CMP, PRO, ANEU #### [place] [address] Platelet 226 10 3/mcL Normal 150-450 [facility] ([place]) Comment on above: Performed By: #### A DIFF, CBC, GFR, CMP, PRO, ANEU #### [place] [address] Platelet mean volume (Bld) [Entitic vol] 7.1 fL Normal 6.6-10.5 [facility] ([place]) Comment on above: Performed By: #### A DIFF, CBC, GFR, CMP, PRO, ANEU #### [place] [address] RBC 3.72 10 6/mcL Low 4.10-5.30 [facility] ([place]) Comment on above: Performed By: #### A DIFF, CBC, GFR, CMP, PRO, ANEU #### [place] [address] WBC 5.4 10 3/mcL Normal 4.5-10.8 [facility] ([place]) Comment on above: Performed By: #### A DIFF, CBC, GFR, CMP, PRO, ANEU #### [address] [address] CMPon 03-18-2024 Albumin Level 3.7 G/dL Normal 3.2-4.8 [facility] ([place]) Comment on above: Performed By: #### A DIFF, CBC, GFR, CMP, PRO, ANEU #### [place] [id number] Albumin/Globulin [Mass ratio] 1.2 {ratio} Normal 0.9-1.6 [facility] ([place]) Comment on above: Performed By: #### A DIFF, CBC, GFR, CMP, PRO, ANEU #### [place] [id number] ALP [Catalytic activity/Vol] 88 U/L Normal 38-126 [facility] ([place]) Comment on above: Performed By: #### A DIFF, CBC, GFR, CMP, PRO, ANEU #### [place] [id number] ALT [Catalytic activity/Vol] 18 U/L Normal 10-49 [facility] ([place]) Comment on above: Performed By: #### A DIFF, CBC, GFR, CMP, PRO, ANEU #### [place] [id number] AST [Catalytic activity/Vol] 27 U/L Normal 8-34 [facility] ([place]) Comment on above: Performed By: #### A DIFF, CBC, GFR, CMP, PRO, ANEU #### [place] [id number] Bili Total 0.30 mg/dL Normal 0.20-1.20 [facility] ([place]) Comment on above: Result Comment: Use of this assay is not recommended for patients undergoing treatment with eltrombopag due to the potential for falsely elevated results. Performed By: #### A DIFF, CBC, GFR, CMP, PRO, ANEU #### [place] [address] BUN/Creatinine Ratio 57.8 ratio High 10.0-22.0 [facility] ([place]) Comment on above: Performed By: #### A DIFF, CBC, GFR, CMP, PRO, ANEU #### [address] [address] Calcium [Mass/Vol] 9.2 mg/dL Normal 8.7-10.4 [facility] ([place]) Comment on above: Performed By: #### A DIFF, CBC, GFR, CMP, PRO, ANEU #### [address] [address] Chloride [Moles/Vol] 113 mmol/L High 98-110 [facility] ([place]) Comment on above: Performed By: #### A DIFF, CBC, GFR, CMP, PRO, ANEU #### [place] [id number] CO2 [Moles/Vol] 26 mmol/L Normal 22-32 [facility] ([place]) Comment on above: Performed By: #### A DIFF, CBC, GFR, CMP, PRO, ANEU #### [place] [address] Creatinine [Mass/Vol] 0.64 mg/dL Normal 0.50-1.20 [facility] ([place]) Comment on above: Performed By: #### A DIFF, CBC, GFR, CMP, PRO, ANEU #### [place] [address] Electrolyte Balance 4.0 mEq/L Normal 4.0-15.0 [facility] ([place]) Comment on above: Performed By: #### A DIFF, CBC, GFR, CMP, PRO, ANEU #### [place] [id number] Globulin 3.1 G/dL Normal 1.5-3.8 [facility] ([place]) Comment on above: Performed By: #### A DIFF, CBC, GFR, CMP, PRO, ANEU #### [place] [id number] Glucose [Mass/Vol] 63 mg/dL Low 82-115 [facility] ([place]) Comment on above: Performed By: #### A DIFF, CBC, GFR, CMP, PRO, ANEU #### [facility] [address] [place], [place] [address] Potassium [Moles/Vol] 4.2 mmol/L Normal 3.5-5.0 [facility] ([place]) Comment on above: Performed By: #### A DIFF, CBC, GFR, CMP, PRO, ANEU #### [address] [address] Sodium [Moles/Vol] 143 mmol/L Normal 136-145 [facility] ([place]) Comment on above: Performed By: #### A DIFF, CBC, GFR, CMP, PRO, ANEU #### [address] [address] Total Protein 6.8 G/dL Normal 5.7-8.2 [facility] ([place]) Comment on above: Result Comment: No te - New Reference Range in effect 20 Performed By: #### A DIFF, CBC, GFR, CMP, PRO, ANEU #### [address] [address] Urea nitrogen [Mass/Vol] 37.0 mg/dL High 8.0-22.0 [facility] ([place]) Comment on above: Performed By: #### A DIFF, CBC, GFR, CMP, PRO, ANEU #### [address] [address] LABORATORYOrdered By: SYSTEM SYSTEM on 03-18-2024 Albumin BCP dye [Mass/Vol] 3.7 G/dL Normal 3.2 - 4.8 G/dL ADM SS Albumin/Globulin [Mass ratio] 1.2 {ratio} Normal 0.9 - 1.6 ratio ADM SS ALP [Catalytic activity/Vol] 88 U/L Normal 38 - 126 U/L ADM SS ALT No additional P-5'-P [Catalytic activity/Vol] 18 U/L Normal 10 - 49 U/L ADM SS AST [Catalytic activity/Vol] 27 U/L Normal 8 - 34 U/L ADM SS Basophils (Bld) [#/Vol] 0.1 103/mcL Normal 0.0 - 0.3 10^3/mcL Workflow SS Basophils/100 WBC (Bld) 1.2 % Normal 0.0 - 2.5 % Workflow SS Bilirubin [Mass/Vol] 0.30 mg/dL Normal 0.20 - 1.20 mg/dL ADM SS Comment on above: Interpretive Data: U se of this assay is not recommended for patients undergoing treatment with eltrombopag due to the potential for falsely elevated results. Calcium [Mass/Vol] 9.2 mg/dL Normal 8.7 - 10. 4 mg/dL ADM SS Chloride [Moles/Vol] 113 mmol/L High 98 - 11 0 mEq/L ADM SS CO2 [Moles/Vol] 26 mmol/L Normal 22 - 32 mEq/L ADM SS Creatinine [Mass/Vol] 0.64 mg/dL Normal 0.50 - 1.20 mg/dL ADM SS Electrolyte Balance 4.0 mEq/L Normal 4.0 - 15 .0 mEq/L ADM SS Eosinophils (Bld) [#/Vol] 0.1 103/mcL Normal 0.0 - 0.7 10^3/mcL Workflow SS Eosinophils/100 WBC (Bld) 2.8 % Normal 0.0 - 6.0 % Workflow SS Erythrocyte distribution width (RBC) [Ratio] 13.6 % Normal 11.5 - 15.5 % Workflow SS GFR/1.73 sq M.predicted among blacks MDRD (S/P/Bld) [Vol rate/Area] ml/min/1.73sqm Invalid Interpretation Code [facility] Chemistry S Comment on above: Interpretive Data: GFR Population mean for , Non- Americans Ages 20-29 = 116 mL/min/1.73 sq.m. Ages 30-39 = 107 mL/min/1.73 sq.m. Ages 40-49 = 99 mL/min/1.73 sq.m. Ages 50-59 = 93 mL/min/1.73 sq.m. Ages 60-69 = 85 mL/min/1.73 sq.m. Ages 70+ = 75 mL/min/1.73 sq.m. Chronic Kidney Disease: Less than 60 mL/min/1.73 square meters End Stage Renal Disease: Less than 15 mL/min/1.73 square meters GFR/1.73 sq M.predicted among non-blacks MDRD (S/P/Bld) [Vol rate/Area] ml/min/1.73sqm Invalid Interpretation Code [facility] Chemistry S Comment on above: Interpretive Data: GFR Population mean for , Non- Americans Ages 20-29 = 116 mL/min/1.73 sq.m. Ages 30-39 = 107 mL/min/1.73 sq.m. Ages 40-49 = 99 mL/min/1.73 sq.m. Ages 50-59 = 93 mL/min/1.73 sq.m. Ages 60-69 = 85 mL/min/1.73 sq.m. Ages 70+ = 75 mL/min/1.73 sq.m. Chronic Kidney Disease: Less than 60 mL/min/1.73 square meters End Stage Renal Disease: Less than 15 mL/min/1.73 square meters Globulin 3.1 G/dL Normal 1.5 - 3.8 G/dL AH ADM SS Glucose [Mass/Vol] 63 mg/dL Low 82 - 115 mg/dL AH ADM SS Hematocrit (Bld) [Volume fraction] 32.2 % Low 34.0 - 46.0 % AH Workflow SS Hemoglobin (Bld) [Mass/Vol] 11.0 G/dL Low 12.0 - 16.0 G/dL AH Workflow SS Lymphocytes (Bld) [#/Vol] 2.1 103/mcL Normal 0.9 - 4.3 10^3/mcL AH Workflow SS Lymphocytes/100 WBC (Bld) 38.0 % Normal 20.0 - 40.0 % AH Workflow SS MCH (RBC) [Entitic mass] 29.6 pg Normal 27.0 - 33.0 pg AH Workflow SS MCHC 34.2 G/dL Normal 32.0 - 36.0 G/dL AH Workflow SS MCV (RBC) [Entitic vol] 86.5 fL Normal 80.0 - 99.0 fL AH Workflow SS Monocytes (Bld) [#/Vol] 0.5 103/mcL Normal 0.1 - 1.4 10^3/mcL AH Workflow SS Monocytes/100 WBC (Bld) 9.4 % Normal 2.0 - 13.0 % AH Workflow SS Neutrophils (Bld) [#/Vol] 2.6 103/mcL Normal 2.3 - 8.1 10^3/mcL AH Workflow SS Neutrophils/100 WBC (Bld) 48.6 % Low 50.0 - 75.0 % AH Workflow SS Platelet mean volume (Bld) [Entitic vol] 7.1 fL Normal 6.6 - 10.5 fL Workflow SS Platelets (Bld) [#/Vol] 226 103/mcL Normal 150 - 450 10^3/mcL AH Workflow SS Potassium [Moles/Vol] 4.2 mmol/L Normal 3.5 - 5.0 mEq/L ADM SS Protein [Mass/Vol] 6.8 G/dL Normal 5.7 - 8.2 G/dL AH ADM SS Comment on above: Interpretive Data: * *Note - New Reference Range in effect 20 RBC (Bld) [#/Vol] 3.72 106/mcL Low 4.10 - 5.3 0 10^6/mcL Workflow SS Sodium [Moles/Vol] 143 mmol/L Normal 136 - 145 mEq/L ADM SS Urea nitrogen [Mass/Vol] 37.0 mg/dL High 8.0 - 22.0 mg/dL ADM SS Urea nitrogen/Creatinine [Mass ratio] 57.8 ratio High 10.0 - 22.0 ratio ADM SS WBC (Bld) [#/Vol] 5.4 103/mcL Normal 4.5 - 10.8 10^3/mcL Workflow SS LABORATORYOrdered By: Sanam Christopher on 03-18-2024 PT Coag (PPP) [Time] 11.6 s Normal 9.0 - 1 4.4 seconds [facility] Comment on above: Interpretive Data: E ffective 04/05/08, Protime results may be affected by some antibiotics (i.e. Ciprofloxacin, Azithromycin, Bactrim) which may potentiate the action of oral anticoagulants, with further increases in Protime/INR. PT International Ratio 1.0 ratio Invalid Interpretation Code [facility] Comment on above: Interpretive Data: Dimitri mcmillan [employer] (CHEST, 1991, 102:312S-25S) recommended therapeutic range for oral anticoagulant therapy is: LOW RISK: Prophylaxis of venous thrombosis INR: 2.0-3.0 Treatment of pulmonary embolism 2.0-3.0 Prevention of systemic embolism 2.0-3.0 HIGH RISK: Mechanical prosthetic valves 2.5-3.5 PROon 03-18-2024 INR Coag (PPP) [Relative time] 1.0 {INR} Normal [facility] ([place]) Comment on above: Result Comment: [employer] (CHEST, 1992, 102:312S-25S) recommended therapeutic range for oral anticoagulant therapy is: LOW RISK: Prophylaxis of venous thrombosis INR: 2.0-3.0 Treatment of pulmonary embolism 2.0-3.0 Prevention of systemic embolism 2.0-3.0 HIGH RISK: Mechanical prosthetic valves 2.5-3.5 Performed By: #### A DIFF, CBC, GFR, CMP, PRO, ANEU #### [address] [address] PT Coag (PPP) [Time] 11.6 s Normal 9.0-14.4 [facility] ([place]) Comment on above: Result Comment: Effe ctive 04/05/08, Protime results may be affected by some antibiotics (i.e. Ciprofloxacin, Azithromycin, Bactrim) which may potentiate the action of oral anticoagulants, with further increases in Protime/INR. Performed By: #### A DIFF, CBC, GFR, CMP, PRO, ANEU #### [place] [address] MA MAMMOGRAM DIAGNOSTIC LEFT W/TOMOon 01-21-2024 MA MAMMOGRAM DIAGNOSTIC LEFT W/CAY[place] ORIGINAL FROM: [address] [address] PROCEDURE FOR: LYNSEY DOTY [address] [place] [id number] Home: PID#: [id number] Exam#: [id number] : 1955 Age: 68 TO: LETY CHENG APRN [place] [address] Fax: NO FAX EXAMINATION: DIAGNOSTIC DIGITAL LEFT BREAST MAMMOGRAM WITH TOMOSYNTHESIS, 01/21/2024 9:17 am TECHNIQUE: Diagnostic mammography of the left breast was performed with tomosynthesis. 2D standard and 3D tomosynthesis combination imaging performed through the left breast. Computer aided detection was utilized in the interpretation of this exam. COMPARISON: 06/05/2023, 12/20/2021 and 02/16/2021 mammograms HISTORY: Follow-up left breast mass FINDINGS: BREAST DENSITY: Heterogeneously dense There is no visible mass to correspond to prior mammogram report. There are no other significant masses, calcifications, or other findings. IMPRESSION: No visible left breast mass, no mammographic evidence of malignancy. Right breast ultrasound is recommended and will be performed the same day and reported separately to evaluate the right-sided breast ultrasound findings. We will contact the patient to arrange for the exam. Heydi Maier risk calculations, generated with the history provided, report this patient's 10 year risk and lifetime risk for developing breast cancer at 4 % and 6.8%, respectively. Based on this assessment tool, if the patient's calculated lifetime risk is below 20%, then the patient is considered at average risk for developing breast cancer. If the patient's calculated lifetime risk is at or above 20%, then the patient is considered high risk for developing breast cancer and may be a candidate for supplemental breast MRI screening in addition to annual mammographic screening per the [employer]. BIRADS: MAMMOGRAM BI-RADS: 0: Needs addl evaluation RECALL: immediate RECALL TYPE: Right US LETTER SENT: Abnormal-Needs additional work up BI-RADS 0 Interpreted by: Erlin Cortes MD Preliminary Report By: Erlin Cortes MD Electronically signed By Erlin Cortes MD Dictated Date: 01/21/2024 9:40:14 AM Prelim Date: 01/21/2024 9:53:50 AM Sign Date: 01/21/2024 9:53:50 AM Ordering Provider: LETY CHENG CLINICAL: MAMMOGRAPHIC DENSITY LEFT BREAST- 6 MONTHS FOLLOW-UP. 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 COMPARISON: 06/18/2023 right breast [facility] ultrasound. HISTORY: ORDERING SYSTEM PROVIDED HISTORY: Reason for Exam: 6 mo f/u right breast mass on [facility] 12:00. FINDINGS: The 06/18/2023 right breast ultrasound described to areas at 12 o'clock and recommended follow-up for 2 areas at 12 o'clock. The 06/18/2023 ultrasound was reviewed and head 2 areas at 12 o'clock measured, these areas are felt to represent normal fibroglandular tissue and are less prominent and less masslike on today's study. IMPRESSION: There is no visible mass, the 2 areas at 12 o'clock seen on the 06/18/2023 [facility] ultrasound are less prominent and less masslike and felt to represent normal fibroglandular tissue. No follow-up imaging is recommended. The patient may return to annual mammographic screening. BIRADS: MAMMOGRAM BI-RADS: 1: Negative RECALL: return to screening RECALL TYPE: mammo LETTER SENT: Normal BI-RADS 1 and 2 Interpreted by: Erlin Cortes MD Preliminary Report By: Erlin Cortes MD Electronically signed By Erlin Cortes MD Dictated Date: 01/21/2024 10:22:48 AM Prelim Date: 01/21/2024 10:45:42 AM Sign Date: 01/21/2024 10:45:42 AM Ordering Provider: LETY CHENG CLINICAL: MASSES 12:00/2:00 FOLLOW-UP. Camp Counselor: PIPER MENA RT,[facility] letter sent: Normal BI-RADS 1 and 2 Ultrasound BI-RADS: 1 Negative Normal [facility] ([place]) CT CORONARY CALCIUM SCORING W/O CONTRASTon 09-29-2023 CT CORONARY CALCIUM SCORING W/O CONTRAST ORIGINAL EXAMINATION: 1. CT HEART WITHOUT IV CONTRAST FOR CALCIUM SCORING TECHNIQUE: 1. Noncontrast gated CT through the heart for coronary artery atherosclerosis screening. 2. Agatston method used to calculate the calcium score. 3. Small FOV used to focus on the heart; most of the other thoracic structures are excluded. Automated exposure control, iterative reconstruction, and/or weight based adjustment of the mA/kV was utilized to reduce the radiation dose to as low as reasonably achievable. COMPARISON: None HISTORY: ORDERING SYSTEM PROVIDED HISTORY: Reason for Exam: shortness of breath, CHF Hx SOB FINDINGS: CALCIUM SCORING Percentile (based on age/sex normogram): >90th percentile. AGATSTON SCORE LM: 0 LCx: 22 LAD: 645 RCA: 44 TOTAL: 712 Calc Vol (mm^3): 464 Refer to PACS images for more information regarding calcium scoring ([email or web address] NON-CORONARY CARDIAC HEART: Mild cardiomegaly. PERICARDIUM: Contour preserved. EFFUSION: None THICKENING: None. CALCIFICATION: None AV: CALCIFICATION: Mild MV: CALCIFICATION: Mild EXTRACARDIAC MAIN PA: Non-dilated. AORTA: Mild calcified atherosclerosis. Most of the non-cardiac chest anatomy is excluded in the FOV. LUNGS: Diffuse bilateral lung nodules, largest measuring 1.6 cm in the right lower lobe (series 302, image 36). 7 mm perifissural nodule in the lingula (image 28). Multiple other bilateral lung nodules are also noted. ABDOMEN: Unremarkable LYMPHATIC: No gross mediastinal adenopathy within the constraints of a noncontrast exam. BONES: No suspicious osseous lesion. IMPRESSION: 1. Agatston score: 712. Percentile (%): >90th for age and gender in asymptomatic individuals. 2. Agatston score (>400) indicates extensive plaque burden. There is a high likelihood of at least one significant (>50%) coronary artery stenosis. 3. Multiple diffuse bilateral lung nodules, largest measuring 1.6 cm in the right lower lobe. These are indeterminate, however metastatic disease is not excluded. Further evaluation with PET CT and/or tissue biopsy is recommended. I have personally reviewed the images of this examination and agree with the resident's findings and interpretation. Interpreted by: Scout Vargas MD Preliminary Report By: Delia Wolff Electronically signed By Scout Vargas MD Dictated Date: 09/18/2023 8:20:47 AM Prelim Date: 09/29/2023 3:57:29 PM Sign Date: 09/29/2023 3:57:29 PM Ordering Provider: KAMARI DIAZ [facility] ([place]) Basophil percentageOrdered B y: Rodrigo Nielsentre on 09-02-2023 Basophil percentage < 1.0 mg/dL 0.55-1.02 [facility] No Panel InformationOrdered By: Rodrigo Mahajan on 09-02-2023 Bedside Estimated GFR (eGFR) > 60.0000 mL/min >60 [facility] MISCon 07-28-2023 Misc. Send Out See Comments [facility] ([place]) Comment on above: Order Comment: tempu s xG Result Comment: Resu lts sent directly to physician Performed By: #### M ISC #### [place] [address] Laboratory - Drug toxicology Ordered By: Rhoda Treadwell on 04-07-2023 Amphetamines Ql (U) Negative <1000 ng/mL [facility] Benzodiazepines Ql (U) Negative < 200 ng/mL [facility] Cannabinoids Screen Ql (U) Negative < 50 ng/mL [facility] Cocaine Ql (U) Negative < 300 ng/mL [facility] Opiates Ql (U) Negative < 300 ng/mL [facility] No Panel InformationOrdered By: Rhoda Treadwell on 04-07-2023 MDMA (Ecstasy) Screen Negative < 500 ng/mL [facility] Miscellaneous Test See comment [facility] Comment on above: TEST RESULT LIMITSTr amadol Negative ng/mL Qxbspw=200 ____ [facility] OR[facility]INAL REPORT ON FILE IN LAB CONTAINS ADDITIONAL TEST SITE INFORMATION. Urine Barbiturates Screen Negative < 200 ng/mL [facility] Urine Drug Screen Comment [facility] Comment on above: CONFIRMATORY TESTING FOR ALL POSITIVE URINE DRUG SCREENRESULTS WILL ONLY BE SENT OUT UPON PHYSICIAN ORDER. VISTA Urine Drug Screen methods provide only preliminaryanalytical test results. A more specific alternate chemicalmethod must be used in order to obtain a confirmedanalytical result. Gas chromatography/mass spectrometery(GC/MS) is the preferred confirmatory method. Clinicalconsideration and professional judgement should be appliedto any drug of abuse test result, particularly whenpreliminary positive results are used. URINE TCA TESTING MUST BE ORDERED SEPARATELY. USE TESTMNEMONIC: [facility] Urine Methadone Screen Negative < 300 ng/mL [facility] Urine phencyclidine (PCP) de tectionOrdered By: Rhoda Treadwell on 04-07-2023 Phencyclidine Ql (U) Negative < 25 ng/mL [facility] Hemoglobin A1con 07-26-2021 Glucose [Mass/Vol] 177 mg/dL Normal [facility] Reference Lab Comment on above: Performed By: #### H BA1C #### [facility] Routine Lab [address] [place] [address] HbA1c (Bld) [Mass fraction] 7.8 % High 4.3-5.6 [facility] Reference Lab Comment on above: Performed By: #### H BA1C #### [facility] Routine Lab [address] [place] [address] Hemoglobin A1con 04-17-2021 Glucose [Mass/Vol] 183 mg/dL Normal [facility] Reference Lab Comment on above: Performed By: #### H BA1C #### [facility] Routine Lab [address] [place] [address] HbA1c (Bld) [Mass fraction] 8.0 % High 4.3-5.6 [facility] Reference Lab Comment on above: Performed By: #### H BA1C #### [facility] Routine Lab [address] [place] [address] 25-Hydroxy D2+D3on 1 25-Hydroxy D Total 53.1 ng/mL Normal 30.0-100.0 [facility] Reference Lab Comment on above: Performed By: #### H BA1C #### [facility] Routine Lab [address] [place], [place] [address] #### D2D3 #### [facility] Chemistry [address] [place], [place] [id number] 25-Hydroxy D2 <4.[address] [facility] Reference Lab Comment on above: Performed By: #### H BA1C #### [facility] Routine Lab [address] [place] [address] #### D2D3 #### [facility] Chemistry [address] [place] [address] 25-Hydroxy D3 53.1 ng/mL Normal [facility] Reference Lab Comment on above: Performed By: #### H BA1C #### [facility] Routine Lab [address] [place] [address] #### D2D3 #### [facility] Chemistry [address] [place], [place] [id number] Hemoglobin A1con 01-09-2021 Glucose [Mass/Vol] 186 mg/dL Normal [facility] Reference Lab Comment on above: Performed By: #### H BA1C #### [facility] Routine Lab [address] [place], [place] [address] #### D2D3 #### [facility] Chemistry [address] [place], [place] [address] HbA1c (Bld) [Mass fraction] 8.1 % High 4.3-5.6 [facility] Reference Lab Comment on above: Performed By: #### H BA1C #### [facility] Routine Lab [address] [place], [place] [address] #### D2D3 #### [facility] Chemistry [address] [place] [address] 25-Hydroxy D2+D3on 1 25-Hydroxy D Total 29.5 ng/mL Low 30.0-100.0 [facility] Reference Lab Comment on above: Performed By: #### H BA1C #### [facility] Routine Lab [address] [place], [place] [address] #### D2D3 #### [facility] Chemistry [address] [place], [place] [address] 25-Hydroxy D2 <4.[address] [facility] Reference Lab Comment on above: Performed By: #### H BA1C #### [facility] Routine Lab [address] [place], [place] [address] #### D2D3 #### [facility] Chemistry [address] [place], [place] [address] 25-Hydroxy D3 29.5 ng/mL Normal [facility] Reference Lab Comment on above: Performed By: #### H BA1C #### [facility] Routine Lab [address] [place] [address] #### D2D3 #### [facility] Chemistry [address] [place], [place] [address] Hemoglobin A1con 10-10-2020 Glucose [Mass/Vol] 163 mg/dL Normal [facility] Reference Lab Comment on above: Performed By: #### H BA1C #### [facility] Routine Lab [address] [place], [place] [address] #### D2D3 #### [facility] Chemistry [address] [place], [place] [address] HbA1c (Bld) [Mass fraction] 7.3 % High 4.3-5.6 [facility] Reference Lab Comment on above: Performed By: #### H BA1C #### [facility] Routine Lab [address] [place], [place] [address] #### D2D3 #### [facility] Chemistry [address] [place], [place] [address] Vital Signs Date Time Vital Sign Value Performing Clinician Sidney littlejohn 04-25-2025 13:42-0400 Body height 142.2 cm Pacc 1 Work Phone: [facility] 04-25-2025 13:42-0400 Body mass index (BMI) [Ratio] 35.2 kg/m2 Pacc 1 Work Phone: [facility] 04-25-2025 13:42-0400 Body temperature 97.5 [degF] Pacc 1 Work Phone: [facility] 04-25-2025 13:42-0400 Body weight 71.22 kg Pacc 1 Work Phone: [facility] 04-25-2025 13:42-0400 Diastolic blood pressure 68 mm[Hg] Pacc 1 Work Phone: [facility] 04-25-2025 13:42-0400 Heart rate 60 /min Pacc 1 Work Phone: [facility] 04-25-2025 13:42-0400 Respiratory rate 14 /min Pacc 1 Work Phone: [facility] 04-25-2025 13:42-0400 SaO2% (BldA) [Mass fraction] 97 % Pacc 1 Work Phone: [facility] 04-25-2025 13:42-0400 Systolic blood pressure 102 mm[Hg] Pacc 1 Work Phone: [facility] 03-18-2024 13:56-0400 Diastolic Blood Pressure Non-Invasive 84 mm[Hg] DR MOISE VILLALBA MD [facility] 03-18-2024 13:56-0400 Heart rate 60 /min DR MOISE VILLALBA MD [facility] 03-18-2024 13:56-0400 Systolic Blood Pressure Non-Invasive 135 mm[Hg] DR MOISE VILLALBA MD [facility] 03-18-2024 13:40-0400 Diastolic Blood Pressure Non-Invasive 55 mm[Hg] DR MOISE VILLALBA MD [facility] 03-18-2024 13:40-0400 Heart rate 60 /min DR MOISE VILLALBA MD [facility] 03-18-2024 13:40-0400 Systolic Blood Pressure Non-Invasive 149 mm[Hg] DR MOISE VILLALBA MD [facility] 03-18-2024 13:25-0400 Diastolic Blood Pressure Non-Invasive 74 mm[Hg] DR MOISE VILLALBA MD [address] [place] [address] 03-18-2024 13:25-0400 Heart rate 60 /min DR MOISE VILLALBA MD [address] [place] [address] 03-18-2024 13:25-0400 Systolic Blood Pressure Non-Invasive 164 mm[Hg] DR MOISE VILLALBA MD [facility] 03-18-2024 13:11-0400 Reason For Taking VItal Signs DR MOISE VILLALBA MD [address] [place] [address] 03-18-2024 13:11-0400 Respiratory rate 16 /min DR MOISE VILLALBA MD [facility] 03-18-2024 10:22-0400 Body weight 37.93 kg/m2 DR MOISE VILLALBA MD [facility] 03-18-2024 10:10-0400 Body height 142.[address] MOISE VILLALBA MD [facility] 03-18-2024 10:10-0400 Body temperature 96.8 [degF] DR MOISE VILLALBA MD [facility] 03-18-2024 10:10-0400 Body weight 76.[address] MOISE VILLALBA MD [facility] 03-18-2024 10:10-0400 Heart rate 86 /min DR MOISE VILLALBA MD [facility] 11-17-2023 14:00-0500 Body height 142.[address] Abdirahman Frias Work Phone: [facility] 11-17-2023 14:00-0500 Body mass index (BMI) [Ratio] 36.3 kg/m2 Dr. Abdirahman Frais Work Phone: [facility] 11-17-2023 14:00-0500 Body weight 73.[address] Abdirahman Frias Work Phone: [facility] 08-22-2023 13:41-0500 Body height 142.[address] Abdirahman Frias Work Phone: [facility] 08-22-2023 13:41-0500 Body mass index (BMI) [Ratio] 36.3 kg/m2 Dr. Abdirahman Frias Work Phone: [facility] 08-22-2023 13:41-0500 Body temperature 96.1 [degF] Dr. Abdirahman Frias Work Phone: [facility] 08-22-2023 13:41-0500 Body weight 73.[address] Abdirahman Frias Work Phone: [facility] 08-22-2023 13:41-0500 Diastolic blood pressure 75 mm[Hg] Dr. Abdirahman Frias Work Phone: [facility] 08-22-2023 13:41-0500 Heart rate 67 /min Dr. Abdirahman Frias Work Phone: [facility] 08-22-2023 13:41-0500 Respiratory rate 18 /min Dr. Abdirahman Frias Work Phone: [facility] 08-22-2023 13:41-0500 SaO2% (BldA) [Mass fraction] 99 % Dr. Abdirahman Frias Work Phone: [facility] 08-22-2023 13:41-0500 Systolic blood pressure 175 mm[Hg] Dr. Abdirahman Frias Work Phone: [facility] Encounters Encounter Date Encounter Type Care Provider Facility Start: 06-03-2025 ambulatory Ghassan Hartley Facility:[facility] Start: 05-27-2025 End: 05-27-2025 Patient encounter procedure Emerson MORTENSEN -[facility] Work Phone: Start: 05-27-2025 End: 05-27-[address] 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 Ghassan Hartley MD Work Phone: -[facility] 3rd Flr Start: 05-12-2025 End: 05-12-[address] 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 Start: 05-10-2025 End: 05-10-2025 ambulatory FOZIA CASTILLO Facility:[facility] Start: 05-09-2025 End: 05-09-2025 ambulatory LUC BELL Facility:[facility] Start: 04-28-2025 End: 04-28-2025 ambulatory [facility] Start: 04-25-2025 End: 04-25-2025 Admission to establishment Pacc [place] 1 Work Phone: Pre Anesthesia Start: 04-25-2025 End: 04-25-2025 Anesthesia consultation Pac [place] 1 Work Phone: Pre Anesthesia Comment on above: Pre-operative examin ation (Primary Dx); CAD in [place] artery; Heart failure with preserved ejection fraction, unspecified HF chronicity (HCC); Primary hypertension; COPD, mild (HCC); Dyspnea on exertion; Type 2 diabetes mellitus without complication, without long-term current use of insulin (HCC); Dyslipidemia; BMI 35.0-35.9,adult; PUNEET (obstructive sleep apnea); Gastroesophageal reflux disease, unspecified whether esophagitis present; History of total knee arthroplasty, right Start: 04-25-2025 End: 04-25-2025 Preprocedural examination done Pac [place] 1 Work Phone: [facility] Work Phone: Start: 04-25-2025 End: 04-25-2025 ambulatory LUC BELL Facility:[facility] Start: 04-25-2025 Encounter for other preprocedural examination LUC BELL [facility] Start: 04-22-2025 ambulatory LUC BELL Facility: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); Pseudophakia; Band keratopathy, right eye Start: 03-30-2025 End: 03-30-2025 ambulatory LUC BELL Facility:[facility] Start: 01-18-2025 End: 01-18-2025 ambulatory ABDIRAHMAN SCHAEFFER [facility] Start: 01-17-2025 End: 01-17-2025 ambulatory ABDIRAHMAN SCHAEFFER [facility] Start: 12-22-2024 End: 01-05-2025 ambulatory EMERSON CASTRO [facility] Start: 12-03-2024 End: 12-03-2024 ambulatory Butros Latouf Facility:[facility] Start: 10-28-2024 End: 10-28-2024 ambulatory Butros Latouf Facility:[facility] Start: 10-21-2024 ambulatory Butros Latouf Facility: [facility] Start: 10-21-2024 End: 10-21-2024 ambulatory Judyzumbrotajanie Alvarezsherri Facility:[facility] Start: 10-04-2024 End: 10-04-2024 ambulatory ABDIRAHMAN SCHAEFFER [facility] Start: 08-16-2024 End: 08-16-2024 ambulatory LETY CHENG APRN-BATCH ROOM TECHNICIAN Facility:A Start: 08-16-2024 End: 08-16-2024 Patient encounter procedure LETY CHENG APRN-BATCH ROOM TECHNICIAN [facility] Start: 03-18-2024 End: 03-18-[address] MOISE VILLALBA MD Facility:A Start: 03-18-2024 End: 03-18-[address] MOISE VILLALBA MD [facility] Start: 01-21-2024 ambulatory LETY Singh APRN-BATCH ROOM TECHNICIAN Facility:A Start: 01-21-2024 End: 01-21-[address] ABDIRAHMAN FRIAS MD Facility:A Start: 01-21-2024 End: 01-21-2024 Patient encounter procedure LETY CHENG APRN-BATCH ROOM TECHNICIAN [facility] Start: 12-08-2023 End: 12-08-[address] Abdirahman Frias Work Phone: [facility] Work Phone: Start: 12-08-2023 End: 12-08-[address] Abdirahman Frias Work Phone: [facility] Work Phone: Start: 11-17-2023 End: 11-17-[address] Abdirahman Frias Work Phone: [facility] Work Phone: Start: 09-12-2023 End: 09-12-2023 ambulatory KAMARI DIAZ MD Facility:A Start: 09-12-2023 End: 09-12-2023 Patient encounter procedure KAMARI DIAZ MD [facility] Start: 09-08-2023 End: 09-08-[address] Abdirahman Frias Work Phone: [facility] Work Phone: Start: 09-02-2023 End: 09-02-[address] Abdirahman Frias Work Phone: [facility] Work Phone: Start: 09-02-2023 End: 09-02-[address] Abdirahman Frias Work Phone[facility] Work Phone: Start: 08-22-2023 End: 08-22-[address] Abdirahman Frias Work Phone: [facility] Work Phone: Start: 07-23-2023 End: 07-23-[address] ABDIRAHMAN FRIAS MD Facility:A Start: 07-23-2023 End: 07-23-2023 ambulatory LETY CHENG APRN-LOS Facility:A Start: 07-23-2023 End: 07-23-2023 Patient encounter procedure LETY CHENG APRN-BATCH ROOM TECHNICIAN [facility] Start: 07-14-2023 End: 07-14-[address] Abdirahman Frias Work Phone: [facility] Work Phone: Start: 07-14-2023 End: 07-14-[address] Abdirahman Frias Work Phone: [facility] Work Phone: Start: 07-14-[address] Sena Frias Work Phone: [facility] Work Phone: Start: 04-07-2023 End: 04-07-2023 ambulatory [facility] Work Phone: Start: 04-07-2023 End: 04-07-2023 Patient encounter procedure [facility] Work Phone: Procedures Date Procedure Procedure Detail Performing Clinician Start: 05-18-2025 MRI of lumbar spine Dr. Ghassan Hartley MD Work Phone: Start: 05-12-2025 Hepatitis C antibody measurement Dr. Ghassan Hartley MD Work Phone: Comment on above: Reactive: Presumptiv e evidence of antibodies to HCV. Follow CDC recommendations for supplemental testing.Non-Reactive: Antibodies to HCV were not detected; does not exclude the possibility of exposure to HCVReactive Results are presumptive evidence of antibodies to HCV. Follow CDC recommendations for supplemental testing.Order confirmation testing: HCV Quant by PCR testing - HCVPCR #[id number] Non Reactive: < 0.8 Equivocal: >/= 0.8 to < 1.0 Reactive: >/= 1.0The CDC requires that a reactive/equivocal HCV antibody result be sent out for confirmation. HCV Quant by PCR testing. Start: 05-12-2025 Vitamin D, 25-hydrox y measurement Dr. Ghassan Hartley MD Work Phone: Comment on above: Vitamin D StatusDefi ciency: <20 ng/mL (50nmol/L)Insufficiency: 20-30 ng/mL (50-75 nmol/L)Sufficiency: 30-100 ng/mL (75-250 nmol/L)Toxicity: >100 ng/mL (>250 nmol/L) Start: 12-08-2023 MRI of lumbar spine Dr. Abdirahman Frias Work Phone: Start: 11-17-2023 X-ray of lumbar spin e, two or three views Dr. Abdirahman Frias Work Phone: Start: 09-02-2023 Computed tomography of abdomen and pelvis with contrast Dr. Abdirahman Frias Work Phone: Start: 02-19-2022 Echocardiography LETY CHENG FORGE OPERATOR-BATCH ROOM TECHNICIAN Start: 02-15-2022 CT of chest LETY GARCIA FORGE OPERATOR-BATCH ROOM TECHNICIAN Start: 09-22-2001 H/O: hysterectomy AROLDO CHENG FORGE OPERATOR-BATCH ROOM TECHNICIAN Arthroplasty of knee LETY CHENG FORGE OPERATOR-BATCH ROOM TECHNICIAN Cholecystectomy LETY Singh FORGE OPERATOR-BATCH ROOM TECHNICIAN Plan of Treatment Date Care Activity Detail Author Start: 10-26-2025 Hemoglobin A1c measurement HbA1C [facility] Start: 07-11-2025 Pneumococcal Vaccine : 50+ (3 of 3 - PCV20 or PCV21) Pneumococcal Vaccine: 50+ (3 of 3 - PCV20 or PCV21) [facility] Start: 06-13-2025 End: 06-13-2025 Patient encounter procedure 06/13/2025 11:00 AM EDT Office Visit [facility] [address] [place] [address] Fozia Castillo, OD [address] [place] [address] 1 month post op Ophthalmology Comment on above: 1 month post op Start: 05-26-2025 End: 05-26-2025 Patient encounter procedure 05/26/2025 11:00 AM EDT Office Visit [facility] [address] [place] [address] Fozia Castillo, OD [address] [place] [address] Diagn[facility] [address] [place] [address] for 9-10 days additional PO . Ophthalmology Comment on above: for 9-10 days additi onal PO . Start: 05-23-2025 Influenza vaccination Influenza Vacc ine (#1) [facility] Start: 05-18-2025 MRI of lumbar spine Spine Lumbar (Ro utine) [facility] Start: 05-17-2025 End: 05-17-2025 Patient encounter procedure 05/17/2025 9:30 AM EDT Office Visit [facility] [address] [place] [address] Fozia Castillo, OD [address] [place] [address] 1 week post op Ophthalmology Comment on above: 1 week post op Start: 05-10-2025 End: 05-10-2025 Patient encounter procedure 05/10/2025 10:00 AM EDT Office Visit [facility] [address] [place] [address] Fozia Castillo, OD [address] [place] [address] 1 day post op Ophthalmology Comment on above: 1 day post op Start: 05-09-2025 End: 05-09-2025 Admission to same day surgery center 05/09/2025 12:50 PM EDT - 05/09/2025 1:40 PM EDT Surgery [facility] 1 [facility] [address] [place] [address] Luc Bell MD [address] [place], [place] [id number] REMOVE CORNEAL EPITHELIUM W/ APPLICATION OF CHELATION [facility] Comment on above: REMOVE CORNEAL EPITH ELIUM W/ APPLICATION OF CHELATION Start: 05-09-2025 End: 05-09-2025 Rmvl corneal epithelium w/appl chelating agent REMOVE CORNEAL EPITHELIUM W/ APPLICATION OF CHELATION Band keratopathy, right eye 05/09/2025 12:50 PM EDT [facility] Start: 05-09-2025 Subsequent hospital visit by physician 05/09/2025 12:50 PM EDT Hospital Encounter [facility] 1 [facility] [address] [place] [address] Luc Bell MD [address] [place] [address] Band keratopathy, right eye [H18.421] [facility] Comment on above: Band keratopathy, ri ght eye [H18.421] Start: 04-28-2025 End: 04-28-2025 Patient encounter procedure 04/28/2025 12:30 PM EDT Office Visit OP[facility] [address] [place] [address] ascan [facility] Comment on above: ascan Start: 04-25-2025 End: 04-25-2025 Anesthesia consultation 04/25/2025 2:00 PM EDT PAT Pre Anesthesia [address] [place] [address] 1, [place] [place] [address] [place] [address] [facility] Pre Anesthesia Comment on above: [facility] Start: 04-25-2025 End: 07-25-2025 Hemoglobin A1c in Blood [facility] Work Phone: Comment on above: Expected: 04/25/2025 , Expires: 07/25/2025 Start: 04-22-2025 End: 04-22-2025 Patient encounter procedure 04/22/2025 12:15 PM EDT Office Visit Financial Clearance Phone Screening [facility] pre op surgical registration Financial Clearance Phone Screening Comment on above: pre op surgical maria luz stration Start: 03-30-2025 End: 06-29-2025 25-hydroxyvitamin D3 [Mass/volume] in Serum or Plasma VITAMIN D 25 HYDROXY Lab Routine Band keratopathy, bilateral Expected: 03/30/2025, Expires: 06/29/2025 [facility] Comment on above: Expected: 03/30/2025 , Expires: 06/29/2025 Start: 03-30-2025 End: 06-29-2025 Calcitriol [Mass/volume] in Serum or Plasma VITAMIN D1 25-DIHYDR Lab Routine Band keratopathy, bilateral Expected: 03/30/2025, Expires: 06/29/2025 [facility] Comment on above: Expected: 03/30/2025 , Expires: 06/29/2025 Start: 03-30-2025 End: 06-29-2025 Calcium [Mass/volume] in Serum or Plasma CALCIUM, TOTAL Lab Routine Band keratopathy, bilateral Expected: 03/30/2025, Expires: 06/29/2025 [facility] Comment on above: Expected: 03/30/2025 , Expires: 06/29/2025 Start: 03-30-2025 End: 06-29-2025 Comprehensive metabolic 2000 panel - Serum or Plasma COMPREHENSIVE METABOLIC PANEL Lab Routine Band keratopathy, bilateral Expected: 03/30/2025, Expires: 06/29/2025 [facility] Work Phone: Comment on above: Expected: 03/30/2025 , Expires: 06/29/2025 Start: 03-30-2025 End: 06-29-2025 Parathyrin related protein [Moles/volume] in Serum or Plasma PTH RELATED PEPTIDE Lab Routine Band keratopathy, bilateral Expected: 03/30/2025, Expires: 06/29/2025 [facility] Comment on above: Expected: 03/30/2025 , Expires: 06/29/2025 Start: 09-22-2024 Advance Directive Discussion Advance Directive Discussion [facility] Start: 09-22-2024 Medicare Advantage Annual Wellness Visit Medicare Advantage Annual Wellness Visit [facility] Start: 05-23-2024 Covid-19 Vaccine () Covid-19 Vaccine () [facility] Start: 02-13-2024 Hepatitis B screening Urine Albumin:Creatinine Ratio [facility] Start: 09-04-2023 Hemoglobin A1c measurement HbA1C [facility] Start: 02-04-2022 Screening for malign ant neoplasm of colon [facility] Start: 2019 Screening for osteoporosis Bone Density Screening [facility] Start: 01-20-2016 Shingrix Vaccine (2 of 3) Shingrix Vaccine (2 of 3) [facility] Start: 2014 RSV Vaccine (1 - Ris k 60-74 years 1-dose series) RSV Vaccine (1 - Risk 60-74 years 1-dose series) [facility] Start: 1999 Screening for malign ant neoplasm of colon [facility] Start: 1994 Screening for malign ant neoplasm of breast Mammogram Screening [facility] Start: 1973 Urine microalbumin profile DTaP,Tdap,Td Vaccine (1 - Tdap) [facility] Start: 1972 Annual PCP Team Alternative Medicine Practitioner rosa Disease Visit Annual PCP Team Chronic Disease Visit [facility] Start: 1972 Anxiety Screening Anxiety Screening [facility] Start: 1972 Depression Screening Depression Scre ening [facility] Start: 1972 Hepatitis B surface antibody level LDL Cholesterol [facility] Start: 1972 Hepatitis C screening Hepatitis C Sc thierno [facility] Start: 1964 Diabetic foot examination Diabetic Foot Exam [facility] Start: 1964 Glaucoma screening Dilated Retinal E xam [facility] Rmvl corneal epithel ium w/appl chelating agent REMOVE CORNEAL EPITHELIUM W/ APPLICATION OF CHELATION Band keratopathy, right eye [facility] Immunizations Immunization Date Immunization Notes Care Provider Aurora hollins 06-23-2023 influenza virus vacc ine, unspecified formulation uLc Bell MD Work Phone: [facility] Payers Date Payer Category Payer Self-pay [id number] 2024 Medicare (Managed Care) AMBER Knowles JIMMIE [facility] HMO [id number] 2023 Unknown [id number] 2023 Medicare [id number] 2022 Medicaid MEDICAID [facility] [id number] 2022 Medicaid [id number] 1954 Unknown [id number] 2.16.840.1.764944.3.579.2. 627 1954 Unknown [id number] 2.16.840.1.517534.3.579.2. 627 1954 Unknown [id number] 2.16.840.1.748895.3.579.2. 62 1954 Unknown [id number] 2.16.840.1.910674.3.579.2. 627 1954 Unknown [id number] 2.16.840.1.584560.3.579.2. 62 1954 Unknown [id number] 2.16.840.1.156104.3.579.2. 627 1954 Unknown [id number] 2.16.840.1.681321.3.579.2. 627 1954 Unknown [id number] 2.16.840.1.173074.3.579.2. 651 1954 Unknown [id number] 2.16.840.1.378435.3.579.2. 651 1954 Unknown [id number] 2.16.840.1.310744.3.579.2. 651 1954 Unknown [id number] 2.16.840.1.373088.3.579.2. 651 1954 Unknown [id number] 2.16.840.1.501764.3.579.2. 651 1954 Unknown [id number] 2.16.840.1.101813.3.579.2. 651 Unknown C *DO NOT USE* [id number] Unknown [id number] 2.16.840.1.116489.3.579.2. 462 Unknown [id number] 2.16.840.1.980950.3.579.2. 462 Unknown [id number] 2.16.840.1.815973.3.579.2. 462 Unknown [id number] 2.16.840.1.053040.3.579.2. 462 Unknown [id number] 2.16.840.1.049780.3.579.2. 462 Unknown [id number] 2.16.840.1.228199.3.579.2. 462 Unknown [id number] 2.16.840.1.422909.3.579.2. 462 Unknown [id number] 2.16.840.1.852268.3.579.2. 462 Unknown [id number] 2.16.840.1.617706.3.579.2. 462 Social History Date Type Detail [facility] Work Phone: Start: 1955 Sex Assigned At Female [facility] Start: 03-28-2022 End: 10-21-2024 Tobacco smoking status Never smoked tobacco (finding) [facility] Sex Assigned At Sex [facility] Start: 08-22-2023 End: 09-08-2023 Tobacco smoking status NHIS Unknown if ever smoked [facility] Start: 03-30-2025 Tobacco use and exposure Smokeless tobacco non-user [facility] Start: 03-30-2025 End: 05-17-2025 History of [address] [facility] Start: 03-30-2025 End: 05-17-[address] [facility] Start: 08-10-2021 National Score (1-100), lower number is lower risk 80 [facility] Start: 1955 Sex assigned at Not on file [facility] Start: 04-25-2025 End: 05-17-2025 Alcoholic beverage intake Lifetime non-drinker (finding) [facility] Functional Status Date Assessment Result Facility 03-18-2024 Functional Status Room check performed [facility] 03-18-2024 Functional Status Joselo tobin 03-18-2024 Functional Status Maintained Joselo Adelso tobin Mental Status Date Assessment Result Facility 03-18-2024 Mental Status Orientation Oriented x 4 [facility] 03-18-[address] [facility] 03-18-2024 Mental Status [facility] Clinical Notes 01-21-2024 to 05-26-2025 Fozia Castillo, CRISTIANO - 05/26/2025 11:19 AM Fozia Silva, OD - 05/17/2025 9:50 AM EDFozia Kimble, OD - 05/10/2025 1:21 PM EDTPatient Luc Nascimento MD - 03/30/2025 11:29 AM EDT Note Date & Type Note Facility 05-26-2025 Note HNO ID: [id number] Author: FOZIA CASTILLO OD Service: ? Author Type: Reinforcing Iron Worker Helper Type: Progress Notes Filed: 05/26/2025 11:21 Note Text: 1. Band keratopathy, bilateral (Primary) 2. 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 Bell Patient doing well 2 weeks PO +removed bandage contact lens right eye today Urged to continue Prednisolone 2x daily in right eye Follow-up in 3 weeks for PO I have confirmed and edited as necessary the relevant HPI, ophthalmic history, ROS, and the neuro exam findings as obtained by others. I have seen and examined Lynsey Doty. I have discussed the case and the management of this patient's care with the Resident/Fellow, if applicable. I also have reviewed and agree with the assessment and plan as stated above and agree with all of its relevant components. Fozia Castillo, OD May 26, 2025 11:19 AM [facility] 05-26-2025 History of Presen t illness Narrative 1. Band keratopathy, bilateral (Primary) 2. 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 Bell Patient doing well 2 weeks PO +removed bandage contact lens right eye today Urged to continue Prednisolone 2x daily in right eye Follow-up in 3 weeks for PO I have confirmed and edited as necessary the relevant HPI, ophthalmic history, ROS, and the neuro exam findings as obtained by others. I have seen and examined Lynsey Doty. I have discussed the case and the management of this patient's care with the Resident/Fellow, if applicable. I also have reviewed and agree with the assessment and plan as stated above and agree with all of its relevant components. Fozia Castillo OD May 26, 2025 11:19 AM documented in this encounter [facility] 05-17-2025 Note HNO ID: [id number] Author: FOZIA CASTILLO OD Service: ? Author Type: Reinforcing Iron Worker Helper Type: Progress Notes Filed: 05/17/2025 09:51 Note Text: 1. Band keratopathy, bilateral (Primary) 2. 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 Band keratopathy, bilateral (Primary) 2. 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 Bell Patient doing well 1 week PO +replaced bandage contact lens right eye today (+diffuse keratitis under lens) Urged to continue Ofloxacin and Prednisolone 3x daily in right eye Follow-up in 1 week for fluorescein staining/bandage cl removal (additional PO) I have confirmed and edited as necessary the relevant HPI, ophthalmic history, ROS, and the neuro exam findings as obtained by others. I have seen and examined Lynsey Doty. I have discussed the case and the management of this patient's care with the Resident/Fellow, if applicable. I also have reviewed and agree with the assessment and plan as stated above and agree with all of its relevant components. Fozia Castillo, CRISTIANO May 17, 2025 9:50 AM [facility] 05-17-2025 History of Presen t illness Narrative 1. Band keratopathy, bilateral (Primary) 2. 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 Band keratopathy, bilateral (Primary) 2. 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 Bell Patient doing well 1 week PO +replaced bandage contact lens right eye today (+diffuse keratitis under lens) Urged to continue Ofloxacin and Prednisolone 3x daily in right eye Follow-up in 1 week for fluorescein staining/bandage cl removal (additional PO) I have confirmed and edited as necessary the relevant HPI, ophthalmic history, ROS, and the neuro exam findings as obtained by others. I have seen and examined Lynsey Doty. I have discussed the case and the management of this patient's care with the Resident/Fellow, if applicable. I also have reviewed and agree with the assessment and plan as stated above and agree with all of its relevant components. Fozia Castillo OD May 17, 2025 9:50 AM documented in this encounter [facility] 05-10-2025 Note HNO ID: [id number] Author: FOZIA CASTILLO OD Service: ? Author Type: Reinforcing Iron Worker Helper Type: Progress Notes Filed: 05/10/2025 13:23 Note Text: 1. Band keratopathy, bilateral (Primary) 2. 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 Bell Patient doing well 1 day PO +bandage CL in place Urged to continue Ofloxacin and Prednisolone 4x daily in right eye Follow-up in 1 week for fluorescein staining/bandage cl removal I have confirmed and edited as necessary the relevant HPI, ophthalmic history, ROS, and the neuro exam findings as obtained by others. I have seen and examined Lynsey Doty. I have discussed the case and the management of this patient's care with the Resident/Fellow, if applicable. I also have reviewed and agree with the assessment and plan as stated above and agree with all of its relevant components. Fozia Castillo, CRISTIANO May 10, 2025 1:21 PM [facility] 05-10-2025 History of Presen t illness Narrative 1. Band keratopathy, bilateral (Primary) 2. 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 Bell Patient doing well 1 day PO +bandage CL in place Urged to continue Ofloxacin and Prednisolone 4x daily in right eye Follow-up in 1 week for fluorescein staining/bandage cl removal I have confirmed and edited as necessary the relevant HPI, ophthalmic history, ROS, and the neuro exam findings as obtained by others. I have seen and examined Lynsey Harkins Soren. I have discussed the case and the management of this patient's care with the Resident/Fellow, if applicable. I also have reviewed and agree with the assessment and plan as stated above and agree with all of its relevant components. Fozia Castillo, CRISTIANO May 10, 2025 1:21 PM documented in this encounter [facility] 05-03-2025 Note HNO ID: [id number] Author: JOSE IRWIN APRN.LOS Service: ? Author Type: Nurse Practitioner Type: Progress Notes Filed: 05/03/2025 10:28 Note Text: ADDENDUM: May 03, 2025 10:28 AM Cardiac records reviewed and scanned in. Jose Irwin APRN.CNP [facility] 04-25-2025 Instructions Esteban Caldwell APRN.CNP - 04/25/2025 1:53 PM EDT Images from the original note were not included. [facility] PATIENT PREOPERATIVE INSTRUCTIONS No ref. provider found has scheduled you for your procedure at this surgery center: [address] [place] [id number] Please read below carefully for your personalized instructions. Dietary Restrictions: - No solid food after midnight. - You may have 12 ounces of clear liquids (water, clear juices such as apple juice or gatorade, carbonated beverages, clear tea, black coffee, jello) until 2 hours before scheduled arrival at facility. Medications: Unless instructed differently below, stay on all of your medications until your surgery. If you start any new medications after today's visit, please contact your surgeon. Pre-Surgery Med Instructions Medication Instructions sucralfate (CARAFATE) 100 mg/mL suspension Do not take the day of surgery rosuvastatin calcium (ROSUVASTATIN PO) If you normally take this medication in the morning, take the morning of surgery. pramipexole (MIRAPEX) 0.125 mg tablet If you normally take this medication in the morning, take the morning of surgery. pioglitazone (ACTOS) 45 mg tablet Do not take the day of surgery losartan (COZAAR) 50 mg tablet If you normally take this medication in the morning, take the morning of surgery. ipratropium-albuterol (DUONEB) 0.5 mg-3 mg(2.5 mg base)/3 mL nebu Continue as needed Ibandronate 150 mg tablet Do not take the day of surgery glipiZIDE (GLUCOTROL XL) 10mg 24 hr tablet Do not take the day of surgery furosemide (LASIX) 20 mg tablet Do not take the day of surgery FREESTYLE DORI 2 SENSOR kit JARDIANCE 10 mg tablet Do not take the day of surgery cyanocobalamin (VITAMIN B-12) 1,000 mcg tab Do not take the day of surgery carvedilol (COREG) 3.125 mg tablet If you normally take this medication in the morning, take the morning of surgery. aspirin, enteric coated (ASPIRIN, ENTERIC COATED) 81 mg EC tablet Do not take the day of surgery Is Patient Diabetic:Yes Preoperative Instructions for Patient's with Diabetes Mellitus/ Prediabetes Oral Medication Instructions: DO NOT TAKE THE MORNING OF SURGERY: Metformin (GLUCOPHAGE XR) Tradjenta (linagliptin) Actos/Pioglitazone Amaryl/Glimepiride Glucotrol/Glipizide Januvia/Sitagliptin Glyburide Prandin/Repaglinide Starlix/Nateglinide Symlin/Pramlintide Dulaglutide/Trulicity Exenatide (Bydureon/Byetta) Semaglutide (Ozempic, Rybelsus) Liraglutide (Victoza/Saxenda) Lixsenstide (Adlyxin) Metagliptin (Sitagliptin/Metformin) please HOLD 3 DAYS PRIOR TO SURGERY: Canagliflozin/Invokana Dapagliflozin/Farxiga Empagliflozin/Jardiance Trijardy (Tradjenta, Jardiance, Metformin XL) please HOLD 4 DAYS PRIOR TO SURGERY: Ertugliflozin/Steglatro Injectable Medication Instructions: please HOLD 7 DAYS PRIOR TO SURGERY: Tirzepatide (Mounjaro)(Zepbound) Dulaglutide (Trulicity) Exenatide (Bydureon/Byetta) Semaglutide (Ozempic)/(WEGOVY) (Rybelsus) Laraglutide (Victoza/Saxenda) Lixsenstide (Adlyxin) Insulin Medication Instructions: For the following medications: Afrezza, Novolog, Regular Insulin, Apidra , Humalog DO NOT TAKE THE MORNING OF SURGERY: Please take the following medications at your usual dose the day before surgery. For the following medications: NPH Insulin, Basaglar, Lantus/glargline, Levemir, Rougeo, Lispro and Tresiba IF YOU TAKE IN THE EVENING take 75% of your usual dose the evening before surgery. If not possible to take 75% of your usual dose then take your full dose. IF YOU TAKE IN THE MORNING if blood glucose was > 200 to take half dose of your insulin if blood glucose was < 200 do not take your morning dose For Insulin 70/30 or 75/25 - check fasting blood glucose the Day of Surgery Blood if blood glucose was > 200 to take half dose of your insulin if blood glucose was < 200 do not take your morning dose Insulin Pump: Continue the same Basal Rate If you start any new medications after today's visit, please contact the surgeon's office. If you are currently using a hnbe-seh-sqon injectable or oral medication for diabetes or weight loss such as Dulaglutide (Trulicity), Exenatide (Byetta, Bydureon), Liraglutide (Victoza, Saxenda), Semaglutide (Ozempic, Wegovy, Rybelsus), or Tirzepatide (Mounjaro), the medicine should be stopped at least 7 days before surgery. These medicines can cause food to remain in your stomach for a very long time and increase the risks from surgery and anesthesia. Not stopping the medication for a long enough time may result in your surgery being rescheduled. Blood Thinning Medications: - Stop NSAIDS (Ibuprofen, Advil, Aleve, Motrin, Celebrex, Mobic, etc.) 7 days before surgery, as directed by your surgeon. - Stop Aspirin 7 days before surgery, as directed by your surgeon. - Stop ALL herbal and dietary supplements 7 days before surgery. - You may take Tylenol (Acetaminophen) or any of your pain medications that do not contain aspirin or NSAIDS as needed. Important Reminders: - Candy, mints, and tobacco products are NOT permitted the morning of surgery. - Hearing aids, dentures and glasses may be worn the morning of surgery. - NO jewelry, body piercings, makeup, hairpins or contacts are to be worn the day of surgery. If you develop symptoms such as a fever, cold, or flu, or have other changes to your health within TWO DAYS of scheduled surgery or the morning of surgery, please contact the surgery center above. Personal Belongings: -Please have photo ID and insurance cards. -If you do not have a copy of advance directives on file with us, please bring a copy with you on the day of surgery. - Leave ALL valuables and money at home or with family members. - Please bring high-quality footwear, such as sneakers, to the hospital for ambulating post-surgery. For Outpatient Procedures: - YOU MUST HAVE A RESPONSIBLE ENVELOPE MACHINE ADJUSTER TAKE YOU HOME. A GROCERY STORE CLERK OR REPAIRER CONTROLLER TESTER CANNOT BE MADE A RESPONSIBLE ENVELOPE MACHINE ADJUSTER. - We recommend that a responsible person stays with you overnight to take care of you. - You cannot stay in a hotel alone after outpatient surgery. You will not be permitted to have your surgery, if you do not have someone to take care of you. Arrival Time for Surgery: - The Surgery Center or hospital where you are having surgery will call the afternoon before surgery (or Friday for Friday surgery) with a scheduled arrival time. - If you have not heard by 4 pm, please contact the surgery center above. Please be aware that emergency situations arise, which may delay or change your surgical time. If this happens, we will notify you as soon as possible and regret any inconvenience. If you already have an Advance Directive, please fax a copy to [phone] or email to for it to be added to your chart. If you do not have an Advance Directive, you can find the appropriate form and more information at [email or web address]. We recommend that you complete the Advance Directive form found on the website and bring it with you the day of your surgery. It can be witnessed and scanned into your chart that day. Esteban Caldwell APRN.CNP documented in this encounter [facility] 04-25-2025 History and physical note Images from the original note were not included. [facility] HISTORY AND PHYSICAL EXAMINATION SERVICE DATE: 04/25/2025 SERVICE TIME: 2:59 PM PRIMARY CARE PHYSICIAN: No primary care provider on file. Assessment Patient has the following medical conditions which may affect kalin-operative course: CAD in [place] artery Assessment: non-obstructing, c/w daily ASA, statin Heart failure with preserved ejection fraction (HCC) Assessment: controlled on rx, following cardiology in [place], records requested Hypertension Assessment: controlled on rx Last 14 BP Last 14 Encounter BP Readings: Date: BP: 04/25/2025 102/68 COPD, mild (HCC) Assessment: controlled on rx Dyspnea on exertion Assessment: multifactorial, cardiac records requested Diabetes mellitus (HCC) Assessment: controlled on oral agents, new A1c pending Dyslipidemia Assessment: c/w statin BMI 35.0-35.9,adult Assessment: Body mass index is 35.2 kg/m . PUNEET (obstructive sleep apnea) Assessment: c/w CPAP GERD (gastroesophageal reflux disease) Assessment: otc rx as needed History of total knee arthroplasty, right Assessment: hx ANESTHESIA FINDINGS: Intubation History: No history of difficult intubation Significant Anesthesia Considerations: none Airway History: No history of difficult airway Funes Activity Status Index: METS: Walk indoors, such as around the house (1.75 METs) Do light work around the house, such as dusting or washing dishes (2.70 METs) Take care of self; that is eating, dressing, bathing, using the toilet (2.75 METs) Walk a block or two on level ground (2.75 METs) DASI Score: 9.95 (With cane) Patient denies any chest pain or undue shortness of breath with the above physical activity. Clinical Frailty Scale: 3. Well, with treated comorbid disease STOP-Bang Score: Has or is being treated for high blood pressure BMI greater than 35 kg/m^2 Patient over 50 years old Has a large neck Denies snoring loudly Denies feeling tired, fatigued, or sleepy during the daytime Has not been observed to stop breathing or choking/gasping during sleep Non-male patient STOP-Bang Score: 4 [id number] Score: Age: 65-74 Sex: female CHF history: Yes Hypertension history: Yes Stroke/TIA/thromboembolism history: No Vascular disease history: No Diabetes history: Yes [id number] Score: 5 ARISCAT Score: Age: 51-80 Preoperative SpO2: >=96% Respiratory infection in the last month: No Preoperative anemia: No Surgical incision: peripheral Duration of surgery: <2 hrs Emergency procedure: No ARISCAT Score: 3 I - PHYSICAL EVALUATION AIRWAY Patient intubated: No. Tracheostomy tube not present Mallampati: II. TM distance: >3 FB. Neck ROM: full ROM without neurological symptoms. Mouth opening: adequate. Short neck: no. Thick neck: yes Wharton present: no Lip Bite Test: I Microretrognathia/Micronagthia/R ecessed Chin: No DENTAL Dental findings: teeth intact. II - ANESTHESIA PLAN Anesthetic Plan: other Beta Sergo Monitoring Plan Post Procedure Analgesic Plan Prepared for Surgery: optimally prepared for surgery, pending [see comment]. labs CONSULTS: Patient does not require consults for optimization at this time Planned Anesthetic: other anesthesia choice The Following Tests/Procedures Have Been Initiated: Orders Placed This Encounter HGB A1C Standing Status: Future Number of Occurrences: 1 Expected Date: 04/25/2025 Expiration Date: 07/25/2025 REASON FOR VISIT: Lynsey Doty is a 70 year old female who is scheduled for Procedure(s): REMOVE CORNEAL EPITHELIUM W/ APPLICATION OF CHELATION (Right) at the request of Luc Moran MD for consultation. My final recommendation will be communicated back to the requesting physician by way of shared medical record or letter. Subjective The patient has the following: COVID-19 Immunization Status This patient has no relevant Health Maintenance data. CHIEF COMPLAINT: Pre-op exam HPI: Lynsey Doty is a 70 year old seen for PAC due to scheduled above surgery because Band Keratopathy, right. 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 Potential etiologies include systemic calcium dysregulation due to renal or parathyroid issues, or secondary to chronic ocular inflammation and disease. - Recommended EDTA chelation procedure to dissolve calcium deposits and improve corneal clarity and vision. - Discussed procedure details, including the use of EDTA-soaked sponges to rub the cornea, potential for mild pain post-procedure, and the application of antibiotic drops to prevent infection. - Informed patient about the possibility of recurrence if underlying systemic issues are not addressed. - soliciting freight agent to contact patient to arrange procedure at [place] location. - Advised follow-up one week post-procedure for bandage contact lens removal. REVIEW OF SYSTEMS: General: No weight loss, malaise or fevers. Neurological: No history of TIA's, stroke, ELECTRONIC ASSEMBLY tumor, impaired sensorium, hemiplegia, paraplegia or quadraplegia. No neurological symptoms or problems. Respiratory: Positive for: COPD (on rx), obstructive sleep apnea and CPAP/BiPAP compliant. Negative for: asthma, current cough, dyspnea, pneumonia within 6 weeks, tobacco use and URI < 2 weeks. Cardiovascular: Positive for: anticoagulation therapy (ASA), CAD, CHF, hyperlipidemia and hypertension Patient's last office visit with forestry patrolman, uQinton Prince, The following tests and/or procedures were not performed: cardiac stents. Negative for: abdominal aortic aneurysm, AICD/PPM, angina, arrhythmia, atrial fibrillation, chest pain, congenital heart defect, DVT/PE, recent HI, murmur/valvular heart disease, PTCA, PVD, open heart surgery and valve surgery. GI: Positive for: GERD Negative for: abdominal pain, dysphagia, hepatitis, irritable bowel syndrome, inflammatory bowel disease, liver disease, nausea, pancreatitis, vomiting and ETOH >2 drinks/day. : No history of dysuria, frequency or incontinence, stones or chronic kidney disease. No difficulty urinating, nocturia > 1 time per night or hematuria. 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 Endocrine: Positive for: diabetes mellitus. Patient's diabetes mellitus is controlled by oral agents. Negative for: hypothyroidism. Hematology: Positive for: bruises/bleeds easily and chronic anti-coagulation/platelet meds. Patient is on anti-coagulation/platelet medication(s): Aspirin. Negative for: anemia and transfusion of at least 4 units within 72 hours prior to surgery. Oncology: No history of CA metastasis, chemo within 30 days, or radiotherapy within 90 days. No history of oncological symptoms or problems. Psych: No history of psychiatric symptoms or problems. Musculoskeletal: +right TKA Positive for: back pain. Skin: Negative for lesions, rash and itching. Implanted Devices: No implanted devices. PAST MEDICAL HISTORY Diagnosis Date Amblyopia Arthritis Diabetes mellitus (HCC) Essential hypertension High cholesterol Keratoconus Macular degeneration NPDR (nonproliferative diabetic retinopathy) ([facility]) PAST SURGICAL HISTORY Procedure Laterality Date HYSTERECTOMY REMOVAL GALLBLADDER REMV CATARACT EXTRACAP,INSERT LENS Left 08/08/2006 REMV CATARACT EXTRACAP,INSERT LENS Right 09/05/2006 TOTAL KNEE REPLACEMENT Right TREATMENT EXTENSIVE RETINOPATHY PHOTOCOAGULATION Bilateral FAMILY HISTORY Problem Relation Age of Onset Macular Degen Paternal Aunt Social History Tobacco Use Smoking status: Never Smokeless tobacco: Never Vaping Use Vaping status: Never Used Substance Use Topics Alcohol use: Never Drug use: Never Prior to Admission medications as of 04/25/25 7267 Medication Sig Last Dose Taking sucralfate (CARAFATE) 100 mg/mL suspension TAKE 10 ML BY MOUTH BEFORE MEAL(S) AND AT BEDTIME Yes rosuvastatin calcium (ROSUVASTATIN PO) 40 mg. Yes pramipexole (MIRAPEX) 0.125 mg tablet 0.125 mg. Yes pioglitazone (ACTOS) 45 mg tablet 45 mg. Yes losartan (COZAAR) 50 mg tablet 50 mg. Yes ipratropium-albuterol (DUONEB) 0.5 mg-3 mg(2.5 mg base)/3 mL nebu 3 mL. Yes Ibandronate 150 mg tablet Take 150 mg by mouth once every month. Yes glipiZIDE (GLUCOTROL XL) 10mg 24 hr tablet Yes furosemide (LASIX) 20 mg tablet 20 mg. Yes FREESTYLE DORI 2 SENSOR kit Yes JARDIANCE 10 mg tablet Take 10 mg by mouth every morning. Yes cyanocobalamin (VITAMIN B-12) 1,000 mcg tab Take 1 tablet by mouth once daily. Yes carvedilol (COREG) 3.125 mg tablet Take 1 tablet by mouth every 12 hours. Yes aspirin, enteric coated (ASPIRIN, ENTERIC COATED) 81 mg EC tablet 81 mg. Yes No medication comments found. ALLERGIES No Known Allergies Objective PHYSICAL EXAM: General: alert and oriented (x3), healthy appearance and obese. Pertinent negatives noted - not distressed. Antalgic gait with cane. Skin: normal color, no rash or lesions. HEENT: EOM intact and pupils equal round. Pertinent negatives noted - no carotid bruit. Cardiovascular: regular rate and rhythm, normal S1 and S2, no rub, murmurs, or gallop. Respiratory: normal breath sounds, no wheezes or crackles. No chest wall deformity or tenderness. Abdomen: soft. Pertinent negatives noted - not tender. Extremities: no deformity, no edema or tenderness, no joint swelling or clubbing. Neurological: normal cognition and motor skills. Positive for abnormal gait. PAIN ASSESSMENT: VITALS: BP 102/68 Pulse 60 Temp (Src) 97.5 (Temporal) Resp 14 Ht 4' 8 (1.42m) Wt 157 lb (71.2kg) SpO2 97% BMI 35.22 kg/(m^2). Diagnostic tests reviewed for today's visit: Lab Value Units Date High Low HB No results within date range. HCT No results within date range. WBC No results within date range. PLT No results within date range. NA No results within date range. K No results within date range. GLUC No results within date range. BUN No results within date range. CREAT No results within date range. PTSEC No results within date range. INR No results within date range. APTT No results within date range. ALT No results within date range. AST No results within date range. TBILI No results within date range. TSH No results within date range. Lab Value Units Date High Low HCGQT No results within date range. UHCG No results within date range. HCG, BODY* No results within date range. Lab Value Units Date High Low ABORHD No results within date range. ABSCREEN No results within date range. Hemoglobin A1C (%) Date Value 06/05/2023 10.1 02/12/2023 8.8 01/16/2022 6.9 No results found for this or any previous visit (from the past 8760 hours). No results found for this or any previous visit (from the past 41031 hours). Instructions Given to Patient: Instructions located in the after visit summary. Patient given verbal and written preop instructions and voices comprehension and compliance. SIGNATURE: Esteban Caldwell APRN.CNP PATIENT NAME: Lynsey Doty DATE: April 25, 2025 TIME: 1:46 PM PAGER/CONTACT #: [facility] 04-25-2025 History and physical note Images from the original note were not included. [facility] HISTORY AND PHYSICAL EXAMINATION SERVICE DATE: 04/25/2025 SERVICE TIME: 2:59 PM PRIMARY CARE PHYSICIAN: No primary care provider on file. Assessment Patient has the following medical conditions which may affect kalin-operative course: CAD in [place] artery Assessment: non-obstructing, c/w daily ASA, statin Heart failure with preserved ejection fraction (HCC) Assessment: controlled on rx, following cardiology in [place], records requested Hypertension Assessment: controlled on rx Last 14 BP Last 14 Encounter BP Readings: Date: BP: 04/25/2025 102/68 COPD, mild (HCC) Assessment: controlled on rx Dyspnea on exertion Assessment: multifactorial, cardiac records requested Diabetes mellitus (HCC) Assessment: controlled on oral agents, new A1c pending Dyslipidemia Assessment: c/w statin BMI 35.0-35.9,adult Assessment: Body mass index is 35.2 kg/m . PUNEET (obstructive sleep apnea) Assessment: c/w CPAP GERD (gastroesophageal reflux disease) Assessment: otc rx as needed History of total knee arthroplasty, right Assessment: hx ANESTHESIA FINDINGS: Intubation History: No history of difficult intubation Significant Anesthesia Considerations: none Airway History: No history of difficult airway Funes Activity Status Index: METS: Walk indoors, such as around the house (1.75 METs) Do light work around the house, such as dusting or washing dishes (2.70 METs) Take care of self; that is eating, dressing, bathing, using the toilet (2.75 METs) Walk a block or two on level ground (2.75 METs) DASI Score: 9.95 (With cane) Patient denies any chest pain or undue shortness of breath with the above physical activity. Clinical Frailty Scale: 3. Well, with treated comorbid disease STOP-Bang Score: Has or is being treated for high blood pressure BMI greater than 35 kg/m^2 Patient over 50 years old Has a large neck Denies snoring loudly Denies feeling tired, fatigued, or sleepy during the daytime Has not been observed to stop breathing or choking/gasping during sleep Non-male patient STOP-Bang Score: 4 [id number] Score: Age: 65-74 Sex: female CHF history: Yes Hypertension history: Yes Stroke/TIA/thromboembolism history: No Vascular disease history: No Diabetes history: Yes [id number] Score: 5 ARISCAT Score: Age: 51-80 Preoperative SpO2: >=96% Respiratory infection in the last month: No Preoperative anemia: No Surgical incision: peripheral Duration of surgery: <2 hrs Emergency procedure: No ARISCAT Score: 3 I - PHYSICAL EVALUATION AIRWAY Patient intubated: No. Tracheostomy tube not present Mallampati: II. TM distance: >3 FB. Neck ROM: full ROM without neurological symptoms. Mouth opening: adequate. Short neck: no. Thick neck: yes Wharton present: no Lip Bite Test: I Microretrognathia/Micronagthia/R ecessed Chin: No DENTAL Dental findings: teeth intact. II - ANESTHESIA PLAN Anesthetic Plan: other Beta Sergo Monitoring Plan Post Procedure Analgesic Plan Prepared for Surgery: optimally prepared for surgery, pending [see comment]. labs CONSULTS: Patient does not require consults for optimization at this time Planned Anesthetic: other anesthesia choice The Following Tests/Procedures Have Been Initiated: Orders Placed This Encounter HGB A1C Standing Status: Future Number of Occurrences: 1 Expected Date: 04/25/2025 Expiration Date: 07/25/2025 REASON FOR VISIT: Lynsey Doty is a 70 year old female who is scheduled for Procedure(s): REMOVE CORNEAL EPITHELIUM W/ APPLICATION OF CHELATION (Right) at the request of Luc Moran MD for consultation. My final recommendation will be communicated back to the requesting physician by way of shared medical record or letter. Subjective The patient has the following: COVID-19 Immunization Status This patient has no relevant Health Maintenance data. CHIEF COMPLAINT: Pre-op exam HPI: Lynsey Doty is a 70 year old seen for PAC due to scheduled above surgery because Band Keratopathy, right. 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 Potential etiologies include systemic calcium dysregulation due to renal or parathyroid issues, or secondary to chronic ocular inflammation and disease. - Recommended EDTA chelation procedure to dissolve calcium deposits and improve corneal clarity and vision. - Discussed procedure details, including the use of EDTA-soaked sponges to rub the cornea, potential for mild pain post-procedure, and the application of antibiotic drops to prevent infection. - Informed patient about the possibility of recurrence if underlying systemic issues are not addressed. - soliciting freight agent to contact patient to arrange procedure at [place] location. - Advised follow-up one week post-procedure for bandage contact lens removal. REVIEW OF SYSTEMS: General: No weight loss, malaise or fevers. Neurological: No history of TIA's, stroke, ELECTRONIC ASSEMBLY tumor, impaired sensorium, hemiplegia, paraplegia or quadraplegia. No neurological symptoms or problems. Respiratory: Positive for: COPD (on rx), obstructive sleep apnea and CPAP/BiPAP compliant. Negative for: asthma, current cough, dyspnea, pneumonia within 6 weeks, tobacco use and URI < 2 weeks. Cardiovascular: Positive for: anticoagulation therapy (ASA), CAD, CHF, hyperlipidemia and hypertension Patient's last office visit with forestry patrolman, Quinton Prince, The following tests and/or procedures were not performed: cardiac stents. Negative for: abdominal aortic aneurysm, AICD/PPM, angina, arrhythmia, atrial fibrillation, chest pain, congenital heart defect, DVT/PE, recent HI, murmur/valvular heart disease, PTCA, PVD, open heart surgery and valve surgery. GI: Positive for: GERD Negative for: abdominal pain, dysphagia, hepatitis, irritable bowel syndrome, inflammatory bowel disease, liver disease, nausea, pancreatitis, vomiting and ETOH >2 drinks/day. : No history of dysuria, frequency or incontinence, stones or chronic kidney disease. No difficulty urinating, nocturia > 1 time per night or hematuria. 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 Endocrine: Positive for: diabetes mellitus. Patient's diabetes mellitus is controlled by oral agents. Negative for: hypothyroidism. Hematology: Positive for: bruises/bleeds easily and chronic anti-coagulation/platelet meds. Patient is on anti-coagulation/platelet medication(s): Aspirin. Negative for: anemia and transfusion of at least 4 units within 72 hours prior to surgery. Oncology: No history of CA metastasis, chemo within 30 days, or radiotherapy within 90 days. No history of oncological symptoms or problems. Psych: No history of psychiatric symptoms or problems. Musculoskeletal: +right TKA Positive for: back pain. Skin: Negative for lesions, rash and itching. Implanted Devices: No implanted devices. PAST MEDICAL HISTORY Diagnosis Date Amblyopia Arthritis Diabetes mellitus (HCC) Essential hypertension High cholesterol Keratoconus Macular degeneration NPDR (nonproliferative diabetic retinopathy) ([facility]) PAST SURGICAL HISTORY Procedure Laterality Date HYSTERECTOMY REMOVAL GALLBLADDER REMV CATARACT EXTRACAP,INSERT LENS Left 08/08/2006 REMV CATARACT EXTRACAP,INSERT LENS Right 09/05/2006 TOTAL KNEE REPLACEMENT Right TREATMENT EXTENSIVE RETINOPATHY PHOTOCOAGULATION Bilateral FAMILY HISTORY Problem Relation Age of Onset Macular Degen Paternal Aunt Social History Tobacco Use Smoking status: Never Smokeless tobacco: Never Vaping Use Vaping status: Never Used Substance Use Topics Alcohol use: Never Drug use: Never Prior to Admission medications as of 04/25/25 1357 Medication Sig Last Dose Taking sucralfate (CARAFATE) 100 mg/mL suspension TAKE 10 ML BY MOUTH BEFORE MEAL(S) AND AT BEDTIME Yes rosuvastatin calcium (ROSUVASTATIN PO) 40 mg. Yes pramipexole (MIRAPEX) 0.125 mg tablet 0.125 mg. Yes pioglitazone (ACTOS) 45 mg tablet 45 mg. Yes losartan (COZAAR) 50 mg tablet 50 mg. Yes ipratropium-albuterol (DUONEB) 0.5 mg-3 mg(2.5 mg base)/3 mL nebu 3 mL. Yes Ibandronate 150 mg tablet Take 150 mg by mouth once every month. Yes glipiZIDE (GLUCOTROL XL) 10mg 24 hr tablet Yes furosemide (LASIX) 20 mg tablet 20 mg. Yes FREESTYLE DORI 2 SENSOR kit Yes JARDIANCE 10 mg tablet Take 10 mg by mouth every morning. Yes cyanocobalamin (VITAMIN B-12) 1,000 mcg tab Take 1 tablet by mouth once daily. Yes carvedilol (COREG) 3.125 mg tablet Take 1 tablet by mouth every 12 hours. Yes aspirin, enteric coated (ASPIRIN, ENTERIC COATED) 81 mg EC tablet 81 mg. Yes No medication comments found. ALLERGIES No Known Allergies Objective PHYSICAL EXAM: General: alert and oriented (x3), healthy appearance and obese. Pertinent negatives noted - not distressed. Antalgic gait with cane. Skin: normal color, no rash or lesions. HEENT: EOM intact and pupils equal round. Pertinent negatives noted - no carotid bruit. Cardiovascular: regular rate and rhythm, normal S1 and S2, no rub, murmurs, or gallop. Respiratory: normal breath sounds, no wheezes or crackles. No chest wall deformity or tenderness. Abdomen: soft. Pertinent negatives noted - not tender. Extremities: no deformity, no edema or tenderness, no joint swelling or clubbing. Neurological: normal cognition and motor skills. Positive for abnormal gait. PAIN ASSESSMENT: VITALS: BP 102/68 Pulse 60 Temp (Src) 97.5 (Temporal) Resp 14 Ht 4' 8 (1.42m) Wt 157 lb (71.2kg) SpO2 97% BMI 35.22 kg/(m^2). Diagnostic tests reviewed for today's visit: Lab Value Units Date High Low HB No results within date range. HCT No results within date range. WBC No results within date range. PLT No results within date range. NA No results within date range. K No results within date range. GLUC No results within date range. BUN No results within date range. CREAT No results within date range. PTSEC No results within date range. INR No results within date range. APTT No results within date range. ALT No results within date range. AST No results within date range. TBILI No results within date range. TSH No results within date range. Lab Value Units Date High Low HCGQT No results within date range. UHCG No results within date range. HCG, BODY* No results within date range. Lab Value Units Date High Low ABORHD No results within date range. ABSCREEN No results within date range. Hemoglobin A1C (%) Date Value 06/05/2023 10.1 02/12/2023 8.8 01/16/2022 6.9 No results found for this or any previous visit (from the past 8760 hours). No results found for this or any previous visit (from the past 18394 hours). Instructions Given to Patient: Instructions located in the after visit summary. Patient given verbal and written preop instructions and voices comprehension and compliance. SIGNATURE: Esteban Caldwell APRN.CNP PATIENT NAME: Lynsey Doty DATE: April 25, 2025 TIME: 1:46 PM PAGER/CONTACT #: documented in this encounter [facility] 04-20-2025 Telephone encounter Note Patient was scheduled for in person [facility] appt at 10am today. Patient did not check in for appt, called patient at 1015am to see if they were planning on coming. Patient states she thought her appt was next week. Patient rescheduled to Friday at 2pm per patient request. [facility] Schedulers notified. Kayy Reza LPN [facility] 04-20-2025 Miscellaneous Notes Patient was scheduled for in person [facility] appt at 10am today. Patient did not check in for appt, called patient at 1015am to see if they were planning on coming. Patient states she thought her appt was next week. Patient rescheduled to Friday at 2pm per patient request. [facility] Schedulers notified. Kayy Reza LPN documented in this encounter [facility] 03-30-2025 Note HNO ID: [id number] Author: LUC BELL MD Service: ? Author Type: Physician Type: Progress Notes Filed: 03/30/2025 11:35 Note Text: Assessment and Plan 1. Band keratopathy, bilateral (H18.423) Calcium deposits observed in the cornea, more pronounced in the right eye. Potential etiologies include systemic calcium dysregulation due to renal or parathyroid issues, or secondary to chronic ocular inflammation and disease. - Recommended EDTA chelation procedure to dissolve calcium deposits and improve corneal clarity and vision. - Discussed procedure details, including the use of EDTA-soaked sponges to rub the cornea, potential for mild pain post-procedure, and the application of antibiotic drops to prevent infection. - Informed patient about the possibility of recurrence if underlying systemic issues are not addressed. - soliciting freight agent to contact patient to arrange procedure at [place] location. - Advised follow-up one week post-procedure for bandage contact lens removal. 2. 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 Has tried synergeyes - unable to tolerate 3. 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 4. 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 5. Dry eye syndrome of both eyes (H04.123) Chronic dryness, more pronounced in the left eye. Currently managed with fdtj-tul-caynims artificial tears, which provide relief. 6. Bilateral age-related macular degeneration (H35.30) Chronic condition managed with intravitreal injections. 7. 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 8. Pseudophakia (Z96.1) Status post cataract surgery in both eyes. I have confirmed and edited as necessary the relevant ophthalmic history, ROS, and the neuro exam findings as obtained by others. I have seen and examined Lynsey Doty. I have discussed the case and the management of this patient's care with the Resident/Fellow, if applicable. I also have reviewed and agree with the assessment and plan as stated above and agree with all of its relevant components. Luc Bell MD March 30, 2025 11:29 AM [facility] 03-30-2025 History of Presen t illness Narrative Assessment and Plan 1. Band keratopathy, bilateral (H18.423) Calcium deposits observed in the cornea, more pronounced in the right eye. Potential etiologies include systemic calcium dysregulation due to renal or parathyroid issues, or secondary to chronic ocular inflammation and disease. - Recommended EDTA chelation procedure to dissolve calcium deposits and improve corneal clarity and vision. - Discussed procedure details, including the use of EDTA-soaked sponges to rub the cornea, potential for mild pain post-procedure, and the application of antibiotic drops to prevent infection. - Informed patient about the possibility of recurrence if underlying systemic issues are not addressed. - soliciting freight agent to contact patient to arrange procedure at [place] location. - Advised follow-up one week post-procedure for bandage contact lens removal. 2. 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 Has tried synergeyes - unable to tolerate 3. 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 4. 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 5. Dry eye syndrome of both eyes (H04.123) Chronic dryness, more pronounced in the left eye. Currently managed with ikns-lbk-smxaeca artificial tears, which provide relief. 6. Bilateral age-related macular degeneration (H35.30) Chronic condition managed with intravitreal injections. 7. 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 8. Pseudophakia (Z96.1) Status post cataract surgery in both eyes. I have confirmed and edited as necessary the relevant ophthalmic history, ROS, and the neuro exam findings as obtained by others. I have seen and examined Lynsey Doty. I have discussed the case and the management of this patient's care with the Resident/Fellow, if applicable. I also have reviewed and agree with the assessment and plan as stated above and agree with all of its relevant components. Luc Bell MD March 30, 2025 11:29 AM documented in this encounter [facility] 03-30-2025 Instructions Luc Bell MD - 03/30/2025 11:27 AM EDT AI-generated Visit Summary We discussed your eye health and treatment plan: - You have a condition called band keratopathy, which involves calcium deposits on the cornea, particularly in your right eye. This can affect your vision. - To treat this, I recommend a procedure called EDTA chelation. During this procedure: - A chemical called EDTA will be applied to your cornea using sponges to dissolve the calcium deposits. - The procedure is safe and minimally invasive, but you may experience some pain for 24-48 hours afterward due to a scratch on the cornea. You can take Tylenol to manage the discomfort. - There is a very small risk of infection, so you will be prescribed antibiotic eye drops to reduce this risk. - A soft, bandage contact lens will be placed on your eye for comfort after the procedure and will be removed at your follow-up visit one week later. - There is a small chance the calcium deposits may return in the future, especially if there are underlying issues with your kidneys or parathyroid gland. - I recommend that your primary care physician check your calcium and phosphate levels, as well as your kidney and parathyroid function, to rule out any underlying causes contributing to the calcium deposits. - Our grad intern will contact you to arrange a date and time for the procedure, which will take place at our [place] location. You can choose to have anesthesia (Buchanan sedation) if you prefer, but most patients only require numbing eye drops. Follow-Up: - I will see you one week after the procedure to remove the bandage contact lens and assess your healing. If you have any questions or concerns before the procedure, please feel free to contact our office. documented in this encounter [facility] 03-18-2024 Hospital Discharg e instructions Patient Education 03/18/2024 13:21:35 3- Heart Cath/PCI radial (06/2018) (CUSTOM) HEART CATHETERIZATION/PCI (radial) Discharge Instructions DIET Drink plenty of fluids for the next 48 hours to help your kidneys flush the heart cath dye out of your system ACTIVITY For the next 48 hours: Do not deep bend the wrist Do not use the hand/arm to support your weight when rising from a chair or bed Do not drive For the next 7 days: Do not submerse your procedure site in water Do not swim, wash dishes, or take tub baths Do not lift, push, or pull anything over 5 pounds You may write, eat, type, and shower WOUND CARE You will go home with a dressing over your procedure site. After 24 hours, remove dressing, shower, and place a Band-Aid over your site. Keep a Band-Aid on your procedure site for the next 3-4 days Change the Band-Aid daily or if it gets wet/soiled AFTER YOU GO HOME, CALL YOUR DOCTOR FOR: Any increase in bruising or tenderness from the procedure site Any redness, pus, or other signs of infection at the site A temperature above 100.5 Severe pain at the site DIAL 911 AND RETURN TO THE HOSPITAL FOR: Any bleeding from the procedure site. The site may be bruised or tender, but it should not be bleeding at any time. If your site begins to bleed, hold firm pressure on it and dial 911 to return to the hospital Any increase in swelling at the procedure site. An increase in swelling could mean the area is bleeding under the skin. Hold firm pressure to the site and dial 911 to return to the hospital Document Released: 09/08/2006 Document Revised: 08/25/2013 Document Reviewed: 09/09/2014 ExitCare Patient Information 2015 [email or web address]. This information is not intended to replace advice given to you by your health care provider. Make sure you discuss any questions you have with your health care provider. Follow Up Care 03/12/2024 16:16:08 With:MOISE VILLALBA MD Address: [address] [place] [address]- [phone] When:04/26/2024 15:15:00 Comments:THIS APPOINTMENT WILL BE WITH DR. DIAZ [facility] 03-18-2024 Summary of episod e note Discharge Instructions Thank you for allowing [facility] to assist you with your healthcare needs. The following is important discharge information regarding your hospital visit. Your Care Team ABDIRAHMAN FRIAS MD What to do next Scheduled Follow-Up Appointments Appointment Type When Where Contact Information StatusCV OV 04/26/2024 03:15 PM EDT [facility] Confirmed MA Mammogram Screening Bilateral w/ Cay[place] 07/23/2024 02:15 PM EDT [facility] Confirmed Follow Up Appointments Follow Up with MOISE VILLALBA MD When:04/26/2024 03:15 PM EDT Where:[address] [facility] [place], [place] [id number]- [phone] Additional Information: THIS APPOINTMENT WILL BE WITH DR. DIAZ The Following Activity and Diet Have Been Ordered for You Discharge Activity - Ordered -- Lifting Restricted less than 5 pounds, For 7 days, 03/18/24 12:52:00 EDT Discharge Diet - Ordered -- Follow the post-operative/post-procedure diet instructions provided by your physician's office., 03/18/24 12:52:00 EDT Medications Please ask your primary doctor or pharmacist before taking any other medication not listed, including over the counter drugs, herbal medications, vitamins and or supplements as they may interact with your home medications. What How Much When Instructions Last Dose Unchanged albuterol-ipratropium (albuterol-ipratropium 2.5 mg-0.5 mg/ 3 mL inhalation solution) 3 Milliliter by inhalation Four (4) times a day Unchanged aspirin (aspirin 81 mg oral delayed release tablet) 1 tab(s) by mouth Once a day Unchanged calcium-vitamin D (calcium-vitamin D 600 mg-5 mcg (200 intl units) oral capsule) 1 cap by mouth Two (2) times a day Unchanged carvedilol (carvedilol 6.25 mg oral tablet) 1 tab(s) by mouth Twice daily with meals Unchanged cholecalciferol (Vitamin D3) Once a day Unchanged cyanocobalamin (Vitamin B12) Unchanged empagliflozin (Jardiance 10 mg oral tablet) 1 tab(s) by mouth Once a day (in the morning) Unchanged fluticasone-salmeterol (Advair Diskus 500 mcg-50 mcg inhalation powder) 1 puff(s) by inhalation Two (2) times a day Unchanged furosemide (Lasix 40 mg oral tablet) See instructions Take 40 mg in the am Take 20 mg in the pm Take 40 mg in the pm for the next 3 days Unchanged glipiZIDE (glipiZIDE 5 mg oral tablet, extended release) 1 tab(s) TAKE 1 TABLET BY MOUTH ONCE DAILY Unchanged ibandronate (ibandronate 150 mg oral tablet) 1 tab(s) by mouth Once a month Unchanged losartan (losartan 50 mg oral tablet) 1 tab(s) by mouth Once a day Unchanged lovastatin (lovastatin 20 mg oral tablet) 1 tab(s) by mouth Once a day Unchanged magnesium oxide (magnesium oxide 400 mg oral tablet) 1 tab(s) by mouth Two (2) times a day Unchanged Misc Medication (FREESTYLE DORI 2 SENSOR KIT) CHANGE SENSOR EVERY 14 DAYS Unchanged multivitamin (Multivitamin) 1 tab(s) by mouth Every day Unchanged omeprazole (omeprazole 20 mg oral delayed release capsule) by mouth Once a day as needed for Dyspepsia Unchanged pioglitazone (pioglitazone 45 mg oral tablet) 1 tab(s) by mouth Every day Unchanged potassium chloride (Potassium Chloride (Eqv-K-Tab) 20 mEq oral tablet, extended release) 1 tab(s) by mouth Every other day Take with food Unchanged pramipexole (pramipexole 0.125 mg oral tablet) 1 tab(s) by mouth Once a day Unchanged rosuvastatin 40 Milligram by mouth Once a day Unchanged traMADol (traMADol 50 mg oral tablet) 1 tab(s) by mouth Every 12 hours as needed for for pain Please take this list to your next doctor s visit. Bring all medications you take, including over the counter medications, herbals and other supplements with you to your doctor s visit. Patients and families are reminded to discard old lists and to update any records with all medication providers or retail pharmacies. Education Materials HEART CATHETERIZATION/PCI (radial) Discharge Instructions DIET Drink plenty of fluids for the next 48 hours to help your kidneys flush the heart cath dye out of your system ACTIVITY For the next 48 hours: Do not deep bend the wrist Do not use the hand/arm to support your weight when rising from a chair or bed Do not drive For the next 7 days: Do not submerse your procedure site in water Do not swim, wash dishes, or take tub baths Do not lift, push, or pull anything over 5 pounds You may write, eat, type, and shower WOUND CARE You will go home with a dressing over your procedure site. After 24 hours, remove dressing, shower, and place a Band-Aid over your site. Keep a Band-Aid on your procedure site for the next 3-4 days Change the Band-Aid daily or if it gets wet/soiled AFTER YOU GO HOME, CALL YOUR DOCTOR FOR: Any increase in bruising or tenderness from the procedure site Any redness, pus, or other signs of infection at the site A temperature above 100.5 Severe pain at the site DIAL 911 AND RETURN TO THE HOSPITAL FOR: Any bleeding from the procedure site. The site may be bruised or tender, but it should not be bleeding at any time. If your site begins to bleed, hold firm pressure on it and dial 911 to return to the hospital Any increase in swelling at the procedure site. An increase in swelling could mean the area is bleeding under the skin. Hold firm pressure to the site and dial 911 to return to the hospital Document Released: 09/08/2006 Document Revised: 08/25/2013 Document Reviewed: 09/09/2014 ExitCare Patient Information 2015 [email or web address]. This information is not intended to replace advice given to you by your health care provider. Make sure you discuss any questions you have with your health care provider. Additional Information VACCINATE! IT SAVES LIVES! Members of the community who have not yet received the COVID-19 vaccine and would like to receive it can visit one of [facility] vaccine clinics. There are many vaccine clinic locations within the [facility]. For locations and available times, please visit [email or web address] hio.[email or web address] It is important to note that some COVID mobile vaccine clinics are held outdoors and may be canceled in rainy or stormy conditions. To learn more about pediatric vaccinations (ages 5-11), we invite you to visit the [facility] webpage. [email or web address] To learn more about the COVID-19 vaccine, we invite you to visit the CDC website for a list of frequently asked questions.https://www.cdc.gov/co ronavirus/2019-ncov/vaccines/faq .html [facility] Patient Portal Access Instructions: Stay connected with your healthcare team and access your personal medical information anytime with the [facility] Patient Portal. Please follow the directions below to create your [employer] account: 1.Access the email account you provided upon registration to the hospital/physician office.2.Look for an invitation email from [facility].3.Open the email and access the invitation link: Accept Invitation to [facility].4.Fill in the required sotelo to create your account. To access your account, visit [email or web address]. Click the blue button labeled Access Patient Portal and then log in with the username and password that you created in the steps above. You will be able to view your test results, lab results, a summary of your visits, upcoming appointments and more. There is also a convenient messaging option where you can send secure messages to your provider. In addition, you will have the ability to download any documents or summaries to your computer and/or send the information securely to a physician. Remember that your healthcare information is confidential, so carefully consider who you will allow to register on the [facility] Patient Portal for access to your information. You can also access the [facility] Patient Portal on the [facility] mary. Simply click on Patient Portal and then log into your account. If you would like to receive a full copy of your medical records, please contact the [facility] Medical Records Department by calling [phone], Friday through Friday between 8 a.m. and 4:30 p.m. HOW TO SAFELY DISPOSE OF PRESCRIPTION MEDICATIONS Please use one of the following methods to safely dispose of your unused medications. 1.Use a drug disposal kit: the drug disposal pouch allows you to safely discard your old and unused drugs. Ask your nurse to give you one when you are discharged.2.Visit a local take-back location: Many local pharmacies and police departments have programs that collect old and unwanted prescription drugs. Call your local pharmacy or go to http://Miyaobabei.Obviousidea/1U0Ds0d to find one close to you.3.Make use of household items: Use cat litter or old coffee grounds to dispose medications if other options are not available. Mix your drugs with these household products, seal them in an airtight container and throw it into the garbage. Call [facility]: [phone] to be sure your drugs can be disposed of in this way. Some medicines may require a different approach.4.Never flush your medications down the toilet. IF YOU HAVE BEEN PRESCRIBED AN OPIOID FOR PAIN If you have been prescribed an opioid (such as hydrocodone, oxycodone or morphine), it is critical to understand the possible side effects and risks of opioid pain medications. Even when taken as directed, opioids can have several side effects including: Tolerance, meaning you might need to take more of a medication for the same pain relief. Nausea, vomiting and/or constipation. Sleepiness, dizziness, dry mouth, confusion, depression or itching. Physical dependence, meaning you have withdrawal symptoms when a medication is stopped, can develop within a few days. KNOW YOUR RESPONSIBILITIES It is important to know exactly how much and how often to take the opioid pain medications you are prescribed. Never take opioids in higher amounts or more often than prescribed. Do not combine opioids with alcohol or other drugs that cause drowsiness, such as benzodiazepines, also known as benzos, including diazepam and alprazolam, muscle relaxants or sleep aids. Never sell or share prescription opioids. This is illegal. Store opioids in a secure place and out of reach of others (including children, family, friends and visitors). The last page of this document has been signed and retained as a CHART COPY. Signatures Patient Education Materials 3- Heart Cath/PCI radial (06/2018) (CUSTOM) Medication Leaflets My discharge plan and instructions have been reviewed and explained to me and I,LYNSEY DOTY understand my current condition and have read and understand these discharge instructions. I have received a written copy of the plan/instructions. If I have questions, I am aware that I should contact my doctor. 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 Left heart catheterization showing moderate CAD with approximately 50% in proximal and mid LAD. Normal LVEDP. Radial approach with no complications. No intervention taken. Recommend aggressive medical management and follow-up with general cardiology. Allergies NKA Procedures [facility] Consults No qualifying data available. Objective Vitals and Measurements T: 36.0 C (Oral) HR: 86 (Apical) BP: 175/71 SpO2: 96% HT: 142.2 cm WT: 76.7 kg BMI: 37.93 Weight Dosing Weight: 76.7 kg (03/18/24) Code Status No qualifying data available. Admission Date 03/18/2024 Discharge Date 03/18/2024 Medications Unchanged albuterol-ipratropium (albuterol-ipratropium 2.5 mg-0.5 mg/3 mL inhalation solution)3 Milliliter by inhalation four (4) times a day. aspirin (aspirin 81 mg oral delayed release tablet)1 tab(s) by mouth once a day. Refills: 3. calcium-vitamin D (calcium-vitamin D 600 mg-5 mcg (200 intl units) oral capsule)1 cap by mouth two (2) times a day. carvedilol (carvedilol 6.25 mg oral tablet)1 tab(s) by mouth twice daily with meals. cholecalciferol (Vitamin D3)once a day. cyanocobalamin (Vitamin B12) empagliflozin (Jardiance 10 mg oral tablet)1 tab(s) by mouth once a day (in the morning). Refills: 5. fluticasone-salmeterol (Advair Diskus 500 mcg-50 mcg inhalation powder)1 puff(s) by inhalation two (2) times a day. furosemide (Lasix 40 mg oral tablet)Take 40 mg in the am Take 20 mg in the pm Take 40 mg in the pm for the next 3 days. glipiZIDE (glipiZIDE 5 mg oral tablet, extended release)1 tab(s). TAKE 1 TABLET BY MOUTH ONCE DAILY. ibandronate (ibandronate 150 mg oral tablet)1 tab(s) by mouth once a month. losartan (losartan 50 mg oral tablet)1 tab(s) by mouth once a day. lovastatin (lovastatin 20 mg oral tablet)1 tab(s) by mouth once a day. magnesium oxide (magnesium oxide 400 mg oral tablet)1 tab(s) by mouth two (2) times a day. Misc Medication (FREESTYLE DORI 2 SENSOR KIT)CHANGE SENSOR EVERY 14 DAYS. multivitamin (Multivitamin)1 tab(s) by mouth every day. omeprazole (omeprazole 20 mg oral delayed release capsule)by mouth once a day as needed Dyspepsia. pioglitazone (pioglitazone 45 mg oral tablet)1 tab(s) by mouth every day. potassium chloride (Potassium Chloride (Eqv-K-Tab) 20 mEq oral tablet, extended release)1 tab(s) by mouth every other day. Take with food. Refills: 0. pramipexole (pramipexole 0.125 mg oral tablet)1 tab(s) by mouth once a day. [id number] Milligram by mouth once a day. traMADol (traMADol 50 mg oral tablet)1 tab(s) by mouth every 12 hours as needed for pain. Follow Up Follow Up with MOISE VILLALBA MD When:04/26/2024 03:15 PM EDT [facility] [place] [address]- [phone] Additional Information: THIS APPOINTMENT WILL BE WITH DR. DIAZ Follow Up Appointments No qualifying data available. Follow Up Labs/Studies Discharge Labs No Follow-up Labs Discharge Studies No Follow-up Studies Discharge Diet Discharge Diet - Ordered -- Follow the post-operative/post-procedure diet instructions provided by your physician's office., 03/18/24 12:52:00 EDT Discharge Activity Discharge Activity - Ordered -- Lifting Restricted less than 5 pounds, For 7 days, 03/18/24 12:52:00 EDT Condition on Discharge Stable Readmission Risk/Palliative Score No qualifying data available. Discharge Disposition Home Time Spent > 30 min Digitally Signed by EDGAR GUERRERO MD on 03/18/2024 12:56 PM Digitally Signed by MOISE VILLALBA MD on 03/18/2024 03:59 PM [facility] 03-18-2024 Note Exam Date Time Procedure Performing Provider Status 03/18/24 12:29 PM Cardiac Catheterization -CV Auth (Verified) [facility] 05-01-2024 Note ORIGINAL FROM: [address] [place] [address] PROCEDURE FOR: LYNSEY Acosta [address] [address] Home: PID#: [id number] Exam#: [id number] : 1955 Age: 68 TO: LETY CHENG [employer] [place] [address] Fax: NO FAX EXAMINATION: ULTRASOUND OF THE RIGHT BREAST 01/21/2024 9:17 am TECHNIQUE: Color flow and real-time targeted ultrasound of the right breast were performed. COMPARISON: 06/18/2023 right breast [facility] ultrasound. HISTORY: ORDERING SYSTEM PROVIDED HISTORY: Reason for Exam: 6 mo f/u right breast mass on [facility] 12:00. FINDINGS: The 06/18/2023 right breast ultrasound described to areas at 12 o'clock and recommended follow-up for 2 areas at 12 o'clock. The 06/18/2023 ultrasound was reviewed and head 2 areas at 12 o'clock measured, these areas are felt to represent normal fibroglandular tissue and are less prominent and less masslike on today's study. IMPRESSION: There is no visible mass, the 2 areas at 12 o'clock seen on the 06/18/2023 [facility] ultrasound are less prominent and less masslike and felt to represent normal fibroglandular tissue. No follow-up imaging is recommended. The patient may return to annual mammographic screening. BIRADS: MAMMOGRAM BI-RADS: 1: Negative RECALL: return to screening RECALL TYPE: mammo LETTER SENT: Normal BI-RADS 1 and 2 Interpreted by: Erlin Cortes MD Preliminary Report By: Erlin Cortes MD Electronically signed By Erlin Cortes MD Dictated Date: 01/21/2024 10:22:48 AM Prelim Date: 01/21/2024 10:45:42 AM Sign Date: 01/21/2024 10:45:42 AM Ordering Provider: LETY CHENG CLINICAL: MASSES 12:00/2:00 FOLLOW-UP. Camp Counselor: PIPER MENA RT,RDMS letter sent: Normal BI-RADS 1 and 2 Ultrasound BI-RADS: 1 [facility]05-01-2024 Note ORIGINAL FROM: [facility] [address] [place] [address] PROCEDURE FOR: LYNSEY DOTY [address] [address] Home: PID#: [id number] Exam#: [id number] : 1955 Age: 68 TO: LETY PROSPER SERRANO [facility] [address] [place], [place] [address] Fax: NO FAX EXAMINATION: DIAGNOSTIC DIGITAL LEFT BREAST MAMMOGRAM WITH TOMOSYNTHESIS, 01/21/2024 9:17 am TECHNIQUE: Diagnostic mammography of the left breast was performed with tomosynthesis. 2D standard and 3D tomosynthesis combination imaging performed through the left breast. Computer aided detection was utilized in the interpretation of this exam. COMPARISON: 06/05/2023, 12/20/2021 and 02/16/2021 mammograms HISTORY: Follow-up left breast mass FINDINGS: BREAST DENSITY: Heterogeneously dense There is no visible mass to correspond to prior mammogram report. There are no other significant masses, calcifications, or other findings. IMPRESSION: No visible left breast mass, no mammographic evidence of malignancy. Right breast ultrasound is recommended and will be performed the same day and reported separately to evaluate the right-sided breast ultrasound findings. We will contact the patient to arrange for the exam. Heydi Garciazick risk calculations, generated with the history provided, report this patient's 10 year risk and lifetime risk for developing breast cancer at 4 % and 6.8%, respectively. Based on this assessment tool, if the patient's calculated lifetime risk is below 20%, then the patient is considered at average risk for developing breast cancer. If the patient's calculated lifetime risk is at or above 20%, then the patient is considered high risk for developing breast cancer and may be a candidate for supplemental breast MRI screening in addition to annual mammographic screening per the [employer]. BIRADS: MAMMOGRAM BI-RADS: 0: Needs addl evaluation RECALL: immediate RECALL TYPE: Right US LETTER SENT: Abnormal-Needs additional work up BI-RADS 0 Interpreted by: Erlin Cortes MD Preliminary Report By: Erlin Cortes MD Electronically signed By Erlin Cortes MD Dictated Date: 01/21/2024 9:40:14 AM Prelim Date: 01/21/2024 9:53:50 AM Sign Date: 01/21/2024 9:53:50 AM Ordering Provider: LETY CHENG CLINICAL: MAMMOGRAPHIC DENSITY LEFT BREAST- 6 MONTHS FOLLOW-UP. Camp Counselor: CYDNEY HOLLAND RT(R)(M) letter sent: Abnormal-Needs additional work up BI-RADS 0 [facility]: [facility] Future App[facility]ments Appointment Date:08/18/2023 02:00:00 PM Scheduled Provider: Location:[facility] Appointment Type:CV OV Appointment Date:01/21/2024 09:00:00 AM Scheduled Provider: Location:[facility] Appointment Type:MA Mammogram Diagnostic Left w/ Cay[place] Appointment Date:01/21/2024 09:30:00 AM Scheduled Provider: Location:[facility] Appointment Type:US Breast Right Limited Appointment Date:01/21/2024 10:00:00 AM Scheduled Provider:LETY CHENG Location:[facility] Appointment Type:BS OV Follow Up w/ Imaging Future Scheduled Tests Laboratory* Basic Metabolic Panel 01/03/23 * N-Terminal proBNP 04/14/23 Radiology* MA Mammo Diagnostic Left w/ Cayden 01/21/24 * US Breast Right Limited 01/21/24 [facility] Evaluation + Plan note Future Appointments Appointment Date:01/21/2024 09:00:00 AM Scheduled Provider: Location:[facility] Appointment Type:MA Mammogram Diagnostic Left w/ Cayden Appointment Date:01/21/2024 09:30:00 AM Scheduled Provider: Location:[facility] Appointment Type:US Breast Right Limited Appointment Date:01/21/2024 10:00:00 AM Scheduled Provider:LETY CHENG Location:[facility] Appointment Type:BS OV Follow Up w/ Imaging Future Scheduled Tests Laboratory* Basic Metabolic Panel 01/03/23 * N-Terminal proBNP 04/14/23 Radiology* MA Mammo Diagnostic Left w/ Cayden 01/21/24 * US Breast Right Limited 01/21/24 [facility] evaluation + Plan note Future Appointments Appointment Date:07/23/2024 02:15:00 PM Scheduled Provider: Location:[facility] Appointment Type:MA Mammogram Screening Bilateral w/ Cayden Future Scheduled Tests Laboratory* N-Terminal proBNP 04/14/23 Radiology* MA Mammo Screening Bilateral w/ Cayden 07/23/24 [facility] evaluation + Plan note Future Appointments Appointment Date:04/26/2024 03:15:00 PM Scheduled Provider: Location:[place] Appointment Type:CV OV Appointment Date:07/23/2024 02:15:00 PM Scheduled Provider: Location:[facility] Appointment Type:MA Mammogram Screening Bilateral w/ Cayden Future Scheduled Tests Laboratory* N-Terminal proBNP 04/14/23 Radiology* MA Mammo Screening Bilateral w/ Cayden 07/23/24 [facility] evaluyprdc + Plan note Future Appointments Appointment Date:08/26/2024 02:30:00 PM Scheduled Provider:KALYAN DIAZ Location:[facility] Appointment Type:CV OV Future Scheduled Tests Laboratory* Basic Metabolic Panel 05/03/24 [facility] evaluation noteNo assessment information available [facility] Work Phone: evaluation note* Diagnosis Onset Date Resolution Status Umbilical abnormality acute Umbilical abnormality acute [facility] Work Phone: evaluation note* Diagnosis Onset Date Resolution Status Umbilical abnormality acute Umbilical abnormality acute Spinal stenosis at L4-L5 level acute [facility] Work Phone: evaluation note* Diagnosis Onset Date Resolution Status Umbilical abnormality acute [facility] Work Phone: evaluation note* Diagnosis Band keratopathy, bilateral- Primary Keratoconus of both eyes Keratoconus, unspecified 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 Diagnosis Pre-operative examination- Primary Preoperative examination, unspecified CAD in [place] artery Coronary atherosclerosis of [place] coronary artery Heart failure with preserved ejection fraction, unspecified HF chronicity (HCC) Primary hypertension Unspecified essential hypertension COPD, mild (HCC) Chronic airway obstruction, not elsewhere classified Dyspnea on exertion Other dyspnea and respiratory abnormality Type 2 diabetes mellitus without complication, without long-term current use of insulin (HCC) Dyslipidemia Other and unspecified hyperlipidemia BMI 35.0-35.9,adult Body Mass Index 35.0-35.9, adult PUNEET (obstructive sleep apnea) Obstructive sleep apnea (adult) (pediatric) Gastroesophageal reflux disease, unspecified whether esophagitis present History of total knee arthroplasty, right Band keratopathy, right eye Band-shaped keratopathy * Assessment & Plan Note - Esteban Caldwell APRN.CNP - 04/25/2025 2:59 PM EDT Associated Problem(s): History of total knee arthroplasty, right Assessment: hx * Assessment & Plan Note - Esteban Caldwell APRN.CNP - 04/25/2025 2:59 PM EDT Associated Problem(s): GERD (gastroesophageal reflux disease) Assessment: otc rx as needed * Assessment & Plan Note - Esteban Caldwell APRN.CNP - 04/25/2025 2:59 PM EDT Associated Problem(s): PUNEET (obstructive sleep apnea) Assessment: c/w CPAP * Assessment & Plan Note - Esteban Caldwell APRN.CNP - 04/25/2025 2:58 PM EDT Associated Problem(s): BMI 35.0-35.9,adult Assessment: Body mass index is 35.2 kg/m . * Assessment & Plan Note - Esteban Caldwell APRN.CNP - 04/25/2025 2:57 PM EDT Associated Problem(s): Dyslipidemia Assessment: c/w statin * Assessment & Plan Note - Esteban Caldwell APRN.CNP - 04/25/2025 2:57 PM EDT Associated Problem(s): Diabetes mellitus (HCC) Assessment: controlled on oral agents, new A1c pending * Assessment & Plan Note - Esteban Caldwell APRN.CNP - 04/25/2025 2:56 PM EDT Associated Problem(s): Dyspnea on exertion Assessment: multifactorial, cardiac records requested * Assessment & Plan Note - Esteban Caldwell APRN.CNP - 04/25/2025 2:56 PM EDT Associated Problem(s): COPD, mild (HCC) Assessment: controlled on rx * Assessment & Plan Note - Esteban Caldwell APRN.CNP - 04/25/2025 2:55 PM EDT Associated Problem(s): Hypertension Assessment: controlled on rx Last 14 BP Last 14 Encounter BP Readings: Date: BP: 04/25/2025 102/68 * Assessment & Plan Note - Esteban Caldwell APRN.CNP - 04/25/2025 2:32 PM EDT Associated Problem(s): Heart failure with preserved ejection fraction (HCC) Assessment: controlled on rx, following cardiology in [place], records requested * Assessment & Plan Note - Esteban Caldwell APRN.CNP - 04/25/2025 2:32 PM EDT Associated Problem(s): CAD in [place] artery Assessment: non-obstructing, c/w daily ASA, statin [facility] Diagnosis Pre-operative examination- Primary Preoperative examination, unspecified CAD in [place] artery Coronary atherosclerosis of [place] coronary artery Heart failure with preserved ejection fraction, unspecified HF chronicity (HCC) Primary hypertension Unspecified essential hypertension COPD, mild (HCC) Chronic airway obstruction, not elsewhere classified Dyspnea on exertion Other dyspnea and respiratory abnormality Type 2 diabetes mellitus without complication, without long-term current use of insulin (HCC) Dyslipidemia Other and unspecified hyperlipidemia BMI 35.0-35.9,adult Body Mass Index 35.0-35.9, adult PUNEET (obstructive sleep apnea) Obstructive sleep apnea (adult) (pediatric) Gastroesophageal reflux disease, unspecified whether esophagitis present History of total knee arthroplasty, right Band keratopathy, bilateral- Primary Keratoconus of both eyes Keratoconus, unspecified 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 [facility]* Diagnosis Pre-operative examination- Primary Preoperative examination, unspecified CAD in [place] artery Coronary atherosclerosis of [place] coronary artery Heart failure with preserved ejection fraction, unspecified HF chronicity (HCC) Primary hypertension Unspecified essential hypertension COPD, mild (HCC) Chronic airway obstruction, not elsewhere classified Dyspnea on exertion Other dyspnea and respiratory abnormality Type 2 diabetes mellitus without complication, without long-term current use of insulin (HCC) Dyslipidemia Other and unspecified hyperlipidemia BMI 35.0-35.9,adult Body Mass Index 35.0-35.9, adult PUNEET (obstructive sleep apnea) Obstructive sleep apnea (adult) (pediatric) Gastroesophageal reflux disease, unspecified whether esophagitis present History of total knee arthroplasty, right Band keratopathy, bilateral- Primary Keratoconus of both eyes Keratoconus, unspecified 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 course Narrative No data available for this section [facility] Hospital Discharge instructions No data available for this section [facility] Discharge instructionsAmbulatory Orders* Pain Management Location: None [facility] Work Phone: Progress note No data available for this section [facility] Reason for referral (narrative)No reason for referral [facility] Work Phone: Summary Purpose Family History No Family History Records Found Relationship Condition Age at Onset Recorded Date/T george mother Malignant neoplasm of colon Unknown Hypertension Unknown father Hypertension Unknown Advance Directives No Advanced Directives Records FoundNo Advanced Directives Records FoundNo Advanced Directives Records FoundNo Advanced Directives Records FoundNo Advanced Directives Records FoundNo Advanced Directives Records FoundNo Advanced Directives Records Found Chief Complaint and Reason for Visit Chief Complaint EVALUTATE FOR LIFT C HAIR / RX HERE Drainage Umbilical Area UMBILICAL DRAINAGE Discuss CT Results/Drainage Umbilical Area Reason for Visit Umbilical abnormalit y Umbilical abnormality Chief Complaint Drainage Umbilical A edie UMBILICAL DRAINAGE Discuss CT Results/Drainage Umbilical Area LUMBAR SPINE RM 6 SPINAL STENOSIS Reason for Visit Umbilical abnormalit y Umbilical abnormality Spinal stenosis at L4-L5 level Chief Complaint EVALUTATE FOR LIFT C HAIR / RX HERE Drainage Umbilical Area UMBILICAL DRAINAGE Reason for Visit Umbilical abnormalit y Chief Complaint Admit Date Pain May 18, 2025 7: 56am Chief Complaint Admit Date Pain May 18, 2025 7: 56am LUMBAR SPINE May 27, 2025 8:04am Additional Source Comments INFORMATION SOURCE (unrecogn ized section and content) DATE CREATED AUTHOR 07/27/2021 [facility] DATE CREATED AUTHOR AUTHOR'S ORGANIZ ATION 03/23/2024 [facility] ([place] DATE CREATED AUTHOR AUTHOR'S ORGANIZ ATION 05/05/2025 [facility] DATE CREATED AUTHOR AUTHOR'S ORGANIZ ATION 05/08/2025 [facility] DATE CREATED AUTHOR AUTHOR'S ORGANIZ ATION 05/10/2025 [facility] DATE CREATED AUTHOR AUTHOR'S ORGANIZ ATION 05/28/2025 [facility] DATE CREATED AUTHOR AUTHOR'S ORGANIZ ATION 06/03/2025 [facility] Care Teams (unrecognized sec tion and content) Team Status: Active Member Role Status Dates Dr. Clayton Yo MD Family Provider Active Dr. Abdirahman Frias MD Primary Care Provider Active Team Status: Inactive Member Role Status Dates Dr. Abdirahman Frias MD Primary Care Provider Active Dr. Rhoda Treadwell MD Attending Provider, Referring Pr ovider Active Team Status: Inactive Member Role Status Dates Dr. Abdirahman Frias MD Primary Care Provider, Referrin g Provider Active Dr. Rodrigo Mahajan MD Attending Provider Active Team Status: Inactive Member Role Status Dates Dr. Abdirahman Frias MD Primary Care Provider Active Dr. Rodrigo Mahajan MD Attending Provider, Referring Provider Active Team Status: Inactive Member Role Status Dates Dr. Abdirahman Frias MD Primary Care Provider, Attendin g Provider Active Team Status: Inactive Member Role Status Dates Dr. Abdirahman Frias MD Primary Care Provider, Referrin g Provider Active Dr. Wiley Kohli DO Attending Provider Active Team Status: Inactive Member Role Status Dates Dr. Abdirahman Frias MD Primary Care Provider Active Dr. Jovany Luevano MD Attending Provider Active Team Status: Inactive Member Role Status Dates Dr. Abdirahman Frias MD Primary Care Provider Active Dr. Wiley Kohli DO Attending Provider, Referring P rovider Active Team Status: Active Member Role Status Dates Dr. Abdirahman Frias MD Primary Care Provider, Attendin g Provider Active [employer] Professor Relationship Specialty Start Date End Date Boris Jose [address] [place] [address] Ophthalmology 11/26/24 AtterholtChristiano L, OD [address] [place] [id number] Optometry 03/30/25 [employer] Professor Relationship Specialty Start Date End Date Boris Jose [address] [place] [address] Ophthalmology 11/26/24 AtterholtChristiano L, OD [address] [place] [id number] Optometry 03/30/25 [employer] Professor Relationship Specialty Start Date End Date Boris Jose [address] [place] [address] Ophthalmology 11/26/24 AtterChristiano pavon L, OD [address] [place], [place] [id number] Optometry 03/30/25 Team Status: Active Member Role/Relationship Status Dates Dr. Ghassan Hartley MD Primary Care Provider Active Team Status: Inactive Member Role/Relationship Status Dates Dr. Ghassan Hartley MD Primary Care Provider Active Start: May 12, 2025 End: May 12, 2025 Dr. Ghassan Hartley MD Attending Provider Active Start: May 12, 2025 End: May 12, 2025 Team Status: Active Member Role/Relationship Status Dates BALBINA Ventura Attending Provider Active Star t: May 18, 2025 BALBINA Ventura Referring Provider Active Star t: May 18, 2025 Dr. Ghassan Hartley MD Primary Care Provider Active Start: May 18, 2025 Team Status: Inactive Member Role/Relationship Status Dates BALBINA Ventura Attending Provider Active Star t: May 18, 2025 End: May 18, 2025 BALBINA Ventura Referring Provider Active Star t: May 18, 2025 End: May 18, 2025 Dr. Ghassan Hartley MD Primary Care Provider Active Start: May 18, 2025 End: May 18, 2025 [employer] Professor Relationship Specialty Start Date End Date Boris Jose [address] [place] [address] Ophthalmology 11/26/24 Christiano Corbett OD [address] [place] [address] Optometry 03/30/25 Team Status: Inactive Member Role/Relationship Status Dates Dr. Ghassan Hartley MD Primary Care Provider Active Start: May 27, 2025 End: May 27, 2025 Dr. Ghassan Hartley MD Referring Provider Active Start: May 27, 2025 End: May 27, 2025 BALBINA Ventura Attending Provider Active Star t: May 27, 2025 End: May 27, 2025 Goals (unrecognized section and content) Goals may be documented in a n alternate section No data available for this section No data available for this sectionGoals may be documented in an alternate sectionGoals may be documented in an alternate section No data available for this section No data available for this section No data available for this sectionGoals may be documented in an alternate sectionGoals may be documented in an alternate sectionGoals may be documented in an alternate sectionGoals may be documented in an alternate section Source Comments (unrecognize d section and content) In the event this informatio n is protected by the Federal Confidentiality of Alcohol and Drug Abuse Patient Records regulations: The Federal rules restrict any use of the information to criminally investigate or prosecute any alcohol or drug abuse patient.[facility] the event this information is protected by the Federal Confidentiality of Alcohol and Drug Abuse Patient Records regulations: The Federal rules restrict any use of the information to criminally investigate or prosecute any alcohol or drug abuse patient.[facility] the event this information is protected by the Federal Confidentiality of Alcohol and Drug Abuse Patient Records regulations: The Federal rules restrict any use of the information to criminally investigate or prosecute any alcohol or drug abuse patient.[facility] the event this information is protected by the Federal Confidentiality of Alcohol and Drug Abuse Patient Records regulations: The Federal rules restrict any use of the information to criminally investigate or prosecute any alcohol or drug abuse patient.[facility] the event this information is protected by the Federal Confidentiality of Alcohol and Drug Abuse Patient Records regulations: The Federal rules restrict any use of the information to criminally investigate or prosecute any alcohol or drug abuse patient.[facility] the event this information is protected by the Federal Confidentiality of Alcohol and Drug Abuse Patient Records regulations: The Federal rules restrict any use of the information to criminally investigate or prosecute any alcohol or drug abuse patient.[facility] Reason for Visit (unrecogniz ed section and content) Reason Comments Band Keratopathy Evaluation Reason Comments Consult Reason Comments Post-op (Ophthalmology) Right Eye S/P: R EMOVE CORNEAL EPITHELIUM W/ APPLICATION OF CHELATION (05/09/25) Reason Comments Post-op (Ophthalmology) Right Eye S/P: R EMOVE CORNEAL EPITHELIUM W/ APPLICATION OF CHELATION (05/09/25) with Dr. Bell Reason Comments Post-op (Ophthalmology) Right Eye FOR RECORDS PERTAINING TO PATIENTS WHO ARE OR HAVE BEEN ENROLLED IN A CHEMICAL DEPENDENCY/SUBSTANCEABUSE PROGRAM, SOME INFORMATION MAY BE OMITTED. This clinical summary was aggregated from multiple sources. Caution should be exercised in using it in the provision of clinical care. This summary normalizes information from multiple sources, and as a consequence, information in this document may materially change the coding, format and clinical context of patient data. In addition, data may be omitted in some cases. CLINICAL DECISIONS SHOULD BE BASED ON THE PRIMARY CLINICAL RECORDS. [employer] provides no warranty or guarantee of the accuracy or completeness of information in this document.
== END | disposition home or self-care (01) ==
LOC: OPBI 08:16
PROVIDERS: PCP Family Medicine Geriatric Medicine; Referring Provider Family Medicine Geriatric Medicine; Visit Provider Family Medicine Geriatric Medicine
DX: Z12.31 Encounter for screening mammogram for malignant neoplasm of breast (principal)
CPT/HCPCS: 77063; 77067

== ENCOUNTER → 2025-08-15 | Outpatient (CLI) | payer MEDICARE, MEDICAID, SELFPAY ==
[2025-08-15 10:19] LABS: Hematocrit 39.1 % (37-47); Hemoglobin 12.8 g/dL (12.0-15.0); Immature Granulocytes Count 0.010 X10^3/uL (0.0-0.0); Mean Corp Hgb Conc 32.7 g/dL (32-36); Mean Corpuscular Volume 86.7 fL (81-99); Mean Platelet Vol. 9.0 fl (6.2-12.0); NRBC Flagged by Analyzer 0 % (0-5); Platelet Count 202 K/mm3 (150-450); RBC Distribution Width CV 13.6 % (11.6-14.6); RBC Distribution Width SD 42.7 fl (35.1-43.9); Red Blood Count 4.51 M/mm3 (4.2-5.4); White Blood Count 7.2 K/mm3 (4.4-11.0)
[2025-08-15 11:36] LABS: AST(SGOT) 19 U/L (<=31); Alanine Aminotransfer ALT/SGPT 19 U/L (<=34); Albumin, Serum 4.1 g/dL (3.4-4.8); Alkaline Phosphatase 85 U/L (35-104); Anion Gap 12 (5-15); BUN 28 mg/dL (4-19); BUN/Creat Ratio 38.8 RATIO (10-20); Calcium,Total 9.2 mg/dL (7.6-11.0); Carbon Dioxide 22.3 mmol/L (21.0-32.0); Chloride 106 mmol/L (98-108); Globulin 2.9 g/dL (2.2-4.2); Glucose 203 mg/dL (70-99); Potassium 4.3 mmol/L (3.3-5.1)
[2025-08-15 18:09] LABS: Xtra Tube Kwok EXTRA TUBE
== END | disposition home or self-care (01) ==
LOC: POLAB3 10:08
PROVIDERS: PCP Family Medicine Geriatric Medicine; Visit Provider Family Medicine Geriatric Medicine
DX: I10 Essential (primary) hypertension (principal)
CPT/HCPCS: 36415; 80053; 84443; 85025